=== PATIENT | female | born 1930 | race Caucasian/White ===

== ENCOUNTER 2016-04-15 17:36 | Emergency (ER) | payer BC ==
--- NOTE | 2016-04-15 17:56 | PDOC ---
[id number] 86 year old female with significant medical hx of DM, CHF, HTN, HLD, recurrent UTI, AFib, and cataracts who is presenting to the ED with palpitations since today. Today the patient saw her GI specialist complaining of constipation for the past two weeks. Upon initial assessment of the patient, she was found to be tachycardic and was referred to the ED. Patient states she's stopped taking cardizem 10 days ago because her feet were swollen. Denies fever, chills, chest pain, and shortness of breath. The patient reports shes had some constipation and incontinence the past two weeks. She has been told by GI that she needs a colonoscopy; her last colonoscopy was in 2012. Laryngologist: Cheryl Rebolledo MD <Letty Mckinley - Last Filed: 04/15/16 18:45> <Marc Tillman - Last Filed: 06/22/16 10:26> - General Chief Complaint: Irregular Heart Beat Stated Complaint: PALPITATIONS Time Seen by Provider: 04/15/16 17:55 Past History <Letty Mckinley - Last Filed: 04/15/16 18:45> - Past Medical History Anemia: No Asthma: No Cancer: Yes (LEFT BREAST) Cardiac Disorders: Yes CVA: No COPD: No CHF: No Dementia: No Diabetes: Yes GI Disorders: No Disorders: Yes (HX BLADDER INFECTIONS IN PAST) HTN: Yes Hypercholesterolemia: Yes Liver Disease: No Seizures: No Thyroid Disease: Yes - Surgical History Abdominal Surgery: No Appendectomy: No Cardiac Surgery: No Cholecystectomy: No Lung Surgery: No Neurologic Surgery: No Orthopedic Surgery: No - Immunization History Immunization Up to Date: Yes (FLU AND PNA VARICELLA) - Psycho/Social/Smoking Cessation Hx Anxiety: No Suicidal Ideation: No Smoking Status: No Smoking History: Never smoked Have you smoked in the past 12 months: No Number of Cigarettes Smoked Daily: 0 Hx Alcohol Use: No Drug/Substance Use Hx: No Substance Use Type: None Hx Substance Use Treatment: No <Marc Tillman - Last Filed: 06/22/16 10:26> - Past Medical History Allergies/Adverse Reactions: Allergies Allergy/AdvReac Type Severity Reaction Status Date / Time Sulfa (Sulfonamide Allergy Severe Swelling Verified 04/15/16 18:40 Antibiotics) lisinopril Allergy Intermediate Verified 04/15/16 18:40 Home Medications: Ambulatory Orders Amiodarone HCl [Cordarone -] 100 mg PO DAILY 07/07/14 Atorvastatin Ca [Lipitor] 10 mg PO HS 07/07/14 Docosahexanoic Acid/Epa [Fish Oil Softgel] 1,000 mg PO HS 07/07/14 Levothyroxine [Synthroid -] 50 mcg PO DAILY 07/07/14 Insulin Lispro Protamin/Lispro [Humalog Mix 75-25 Vial] 25 unit SQ BID 04/15/16 Insulin Lispro [Humalog] 15 unit SQ BID 04/15/16 Cyanocobalamin (Vitamin B-12) [B-12] 1,000 mcg PO HS 04/23/16 Lactobacillus Acidophilus [Acidophilus] 1 each PO HS 04/23/16 Apixaban [Eliquis] 2.5 mg PO BID 05/20/16 Cephalexin [Keflex] 250 mg PO AM 05/20/16 Tamoxifen Citrate 20 mg PO DAILY 05/20/16 Losartan Potassium [Cozaar -] 25 mg PO DAILY tablet 05/22/16 Review of Systems - Review of Systems Comments:: 04/15/16 18:29 GENERAL/CONSTITUTIONAL: No fever or chills. No weakness. HEAD, EYES, EARS, NOSE AND THROAT: No change in vision. No ear pain or discharge. No sore throat. CARDIOVASCULAR: Palpitations. No chest pain or shortness of breath. RESPIRATORY: No cough, wheezing, or hemoptysis. GASTROINTESTINAL: Constipation. No nausea, vomiting, or diarrhea. GENITOURINARY: Incontinence. No dysuria, frequency, or change in urination. MUSCULOSKELETAL: No joint or muscle swelling or pain. No neck or back pain. SKIN: No rash NEUROLOGIC: No headache, vertigo, loss of consciousness, or change in strength/ sensation. <Letty Mckinley - Last Filed: 04/15/16 18:45> *Physical Exam - Vital Signs Last Vital Signs Temp Pulse Resp BP Pulse Ox 98.1 F 117 H 20 175/86 97 04/15/16 17:52 04/15/16 17:52 04/15/16 17:52 04/15/16 17:52 04/15/16 17:52 - Physical Exam Comments: 04/15/16 18:30 GENERAL: Awake, alert, and fully oriented, in no acute distress HEAD: No signs of trauma EYES: PERRLA, EOMI, sclera anicteric, conjunctiva clear ENT: Auricles normal inspection, hearing grossly normal, nares patent, oropharynx clear without exudates. Moist mucosa NECK: Normal ROM, supple, no lymphadenopathy, JVD, or masses LUNGS: Breath sounds equal, clear to auscultation bilaterally. No wheezes, and no crackles HEART: Irregularly irregular. Normal S1 and S2, no murmurs, rubs or gallops ABDOMEN: Soft, nontender, normoactive bowel sounds. No guarding, no rebound. No masses EXTREMITIES: Normal range of motion, no edema. No clubbing or cyanosis. No cords, erythema, or tenderness NEUROLOGICAL: Cranial nerves II through XII grossly intact. Normal speech, normal gait SKIN: Warm, Dry, normal turgor, no rashes or lesions noted. ENDOCRINE: No increased thirst. No abnormal weight change. HEMATOLOGIC/LYMPHATIC: No anemia, easy bleeding, or history of blood clots. ALLERGIC/IMMUNOLOGIC: No hives or skin allergy. <Letty Mckinley - Last Filed: 04/15/16 18:45> - Vital Signs Last Vital Signs Temp Pulse Resp BP Pulse Ox 98.1 F 117 H 20 175/86 97 04/15/16 17:52 04/15/16 17:52 04/15/16 17:52 04/15/16 17:52 04/15/16 17:52 <Marc iTllman - Last Filed: 06/22/16 10:26> Heart Score/ECG Review #1 04/15/16 18:31 Atrial flutter with variable AV block at 108 bpm Cannot rule out inferior infarct, age undetermined Cannot rule out anterior infarct, age undetermined Prolonged QT Abnormal ECG <Letty Mckinley - Last Filed: 04/15/16 18:45> ED Treatment Course - LABORATORY CBC & Chemistry Diagram: 04/15/16 18:11 04/15/16 18:11 - RADIOLOGY Radiograph Interpretation: 04/15/16 18:45 Chest X-Ray Impression: Mild cardiomegaly and mild bilateral increased interstitial lung markings that may represent mild pulmonary venous congestion. Follow-up is needed. Reported By: Payal Rodriguez MD <Letty Mckinley - Last Filed: 04/15/16 18:45> - LABORATORY CBC & Chemistry Diagram: 04/15/16 18:11 04/15/16 18:11 <Marc Tillman - Last Filed: 06/22/16 10:26> *DC/Admit/Observation/Transfer - Attestations Scribe Attestion: 04/15/16 18:32 Documentation prepared by Letty Mckinley, acting as medical education specialist for Marc Tillman MD. <Letty Mckinley - Last Filed: 04/15/16 18:45> - Discharge Dispostion Admit: No - Attestations Physician Attestion: 04/15/16 17:55 I, Dr. Marc Tillman, attest that this document has been prepared under my direction and personally reviewed by me in its entirety. I further attest, that it accurately reflects all work, treatment, procedures and medical decision -making performed by me. <Marc Tillman - Last Filed: 06/22/16 10:26> Diagnosis at time of Disposition: Paroxysmal atrial fibrillation - Discharge Dispostion Disposition: HOME Condition at time of disposition: Improved - Referrals Referrals: Sangeetha Bettencourt MD [Primary Care Provider] - - Patient Instructions Printed Discharge Instructions: DI for Arrhythmias Additional Instructions: Please see Dr. Caceres tomorrow, as she is expecting you. Return if any problems.
[2016-04-15 18:02] VITALS: TEMP 98.1; BMI 28.1
[2016-04-15 18:40] LABS: BASOPHIL 0.5 % (0-2.0); EOSINOPHIL 1.9 % (0-4.5); MCH 29.4 pg (25.7-33.7); MCHC 33.9 g/dl (32.0-36.0); MEAN CELL VOLUME 86.7 fl (80-96); MEAN PLT VOLUME 8.3 fl (7.5-11.1); NEUTROPHILS 56.9 % (42.8-82.8); PLATELET COUNT 289 K/MM3 (134-434); RDW 14.1 % (11.6-15.6); WHITE BLOOD COUNT 10.1 K/mm3 (4.0-10.0)
[2016-04-15] MEDS ORDERED: dilTIAZem HCL 60 MG TABLET (FP) ONE (18:44)
[2016-04-15] MEDS ORDERED: dilTIAZem HCL 60 MG TABLET (FP) PO ONE (18:47)
[2016-04-15 18:52] LABS: INR 0.98 (0.82-1.09); PROTHROMBIN TIME (PATIENT) 10.8 SEC (9.98-11.88)
[2016-04-15 19:01] LABS: ALBUMIN 3.8 g/dl (3.4-5.0); ANION GAP 10 (8-16); BILIRUBIN,TOTAL 0.4 mg/dL (0.2-1.0); CALCIUM 8.7 mg/dL (8.5-10.1); CO2 26 mmol/L (21-32); CREATININE 1.1 mg/dL (0.55-1.02); GLUCOSE,RANDOM 173 mg/dL (74-106); MAGNESIUM 2.3 mg/dL (1.8-2.4); SGOT/AST 15 U/L (15-37); SGPT/ALT 23 U/L (12-78); TOT PROT 7.1 g/dl (6.4-8.2)
[2016-04-15 19:04] LABS: ALK PHOS 34 U/L (45-117); TROPONIN I < 0.02 ng/ml (0.00-0.05)
[2016-04-15 20:07] VITALS: BP 124/69; PULSE 91
--- NOTE | 2016-04-15 20:10 | PDOC ---
*Physical Exam - Vital Signs Last Vital Signs Temp Pulse Resp BP Pulse Ox 98.1 F 117 H 20 175/86 97 04/15/16 17:52 04/15/16 17:52 04/15/16 17:52 04/15/16 17:52 04/15/16 17:52 ED Treatment Course - LABORATORY CBC & Chemistry Diagram: 04/15/16 18:11 04/15/16 18:11 - ADDITIONAL ORDERS Additional order review: Laboratory Results 04/15/16 04/15/16 18:11 18:11 INR 0.98 Sodium 140 Potassium 4.0 Chloride 104 Carbon Dioxide 26 Anion Gap 10 BUN 28 H D Creatinine 1.1 H Creat Clearance w eGFR 47.32 Random Glucose 173 H D Calcium 8.7 Magnesium 2.3 D Total Bilirubin 0.4 D AST 15 D ALT 23 D Alkaline Phosphatase 34 L Creatine Kinase 66 Troponin I < 0.02 Total Protein 7.1 D Albumin 3.8 D 04/15/16 18:11 RBC 4.22 D MCV 86.7 MCHC 33.9 RDW 14.1 MPV 8.3 Neutrophils % 56.9 D Lymphocytes % 30.8 D Monocytes % 9.9 Eosinophils % 1.9 D Basophils % 0.5 - Medications Given in the ED: ED Medications Discontinued Medications Generic Name Dose Route Start Last Admin Trade Name Freq PRN Reason Stop Dose Admin Diltiazem HCl 60 mg 04/15/16 18:47 04/15/16 18:49 Cardizem - PO 04/15/16 18:48 60 mg ONCE ONE Administration Medical Decision Making - Medical Decision Making 04/15/16 20:08 Pt given Cardizem 60mg PO. HR now is 90's to 101. Spoke to pcp. Pt can go home. 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 Quiroga. *DC/Admit/Observation/Transfer Diagnosis at time of Disposition: Paroxysmal atrial fibrillation - Discharge Dispostion Disposition: HOME Condition at time of disposition: Improved Admit: No - Referrals Referrals: Sangeetha Bettencourt MD [Primary Care Provider] - - Patient Instructions Printed Discharge Instructions: DI for Arrhythmias Additional Instructions: Please see Dr. Caceres tomorrow, as she is expecting you. Return if any problems. - Post Discharge Activity
--- NOTE | 2016-04-16 16:39 | EKG ---
Test Reason : Blood Pressure : / mmHG Vent. Rate : 108 BPM Atrial Rate : 264 BPM P-R Int : 000 ms QRS Dur : 098 ms QT Int : 390 ms P-R-T Axes : 000 020 145 degrees QTc Int : 522 ms ATRIAL FIBRILLATION WITH RAPID VENTRICULAR RESPONSE CANNOT RULE OUT INFERIOR INFARCT , AGE UNDETERMINED CANNOT RULE OUT ANTERIOR INFARCT (CITED ON OR BEFORE 07-JUL-2014) PROLONGED QT ABNORMAL ECG Confirmed by MD VERN, RANDY ([id number]) on 04/16/2016 4:39:15 PM Referred By: Confirmed By:RANDY PORRAS MD
== END 2016-04-15 20:39 | disposition home or self-care (01) ==
LOC: JER 17:36
DX: I48.0 Paroxysmal atrial fibrillation (principal); I10 Essential (primary) hypertension; E11.9 Type 2 diabetes mellitus without complications; Z79.4 Long term (current) use of insulin; E78.00 Pure hypercholesterolemia, unspecified; I50.9 Heart failure, unspecified; Z85.3 Personal history of malignant neoplasm of breast
CPT/HCPCS: 36415; 71010-TC; 80053; 82550; 83735; 84484; 85025; 85610; 93005; 93010; 99285-25

== ENCOUNTER 2016-04-23 17:22 | Observation (INO) | payer BC ==
--- NOTE | 2016-04-23 17:28 | PDOC ---
Rapid Medical Evaluation Time Seen by Provider: 04/23/16 17:25 Medical Evaluation: Allergies Allergy/AdvReac Type Severity Reaction Status Date / Time Sulfa (Sulfonamide Allergy Severe Swelling Verified 04/23/16 17:25 Antibiotics) lisinopril Allergy Intermediate Verified 04/23/16 17:25 04/23/16 17:25 I have performed a brief in-person evaluation of this patient. The patient presents with a chief complaint of: confused since last night, + cough. recently discharged from here secondary to irreg beat and tachycardia. Pertinent physical exam findings: aox3. 188/76, 122 heart rate I have ordered the following: ekg. Send to main ED room 9b The patient will proceed to the ED for further evaluation.
[2016-04-23 17:33] VITALS: BMI 26.5
[2016-04-23 18:52] LABS: BASOPHIL 1.1 % (0-2.0); EOSINOPHIL 1.6 % (0-4.5); MCHC 34.4 g/dl (32.0-36.0); MEAN CELL VOLUME 87.2 fl (80-96); MEAN PLT VOLUME 9.2 fl (7.5-11.1); NEUTROPHILS 58.9 % (42.8-82.8); PLATELET COUNT 295 K/MM3 (134-434); RDW 14.5 % (11.6-15.6); WHITE BLOOD COUNT 9.8 K/mm3 (4.0-10.0)
--- NOTE | 2016-04-23 19:14 | PDOC ---
History of Present Illness - General History Source: Family Exam Limitations: No Limitations - History of Present Illness Initial Comments: 04/23/16 19:30 Patient is an 86 year old female with significant medical hx of DM, CHF, HTN, HLD, recurrent UTI, AFib, and cataracts who is presenting to the ED with AMS today. As per son, the pt seems more confused and slow in response as of yesterday evening. He called the pts PCP (Dr. Bettencourt) who advised that they report to the ED for further evaluation. Patient was seen in the ED on with the complaint of constipation. Pt reports experiencing a chest cold for the past 3 weeks. Denies fever, chills, nausea, vomiting, diarrhea, or abdominal pain. Denies any shortness of breath or chest pain. <Lauren Chand - Last Filed: 04/23/16 22:12> - General History Source: Patient Exam Limitations: No Limitations <Anant Saeed - Last Filed: 04/23/16 22:18> - General Chief Complaint: Altered Mental Status Stated Complaint: CONFUSED/AMS Time Seen by Provider: 04/23/16 17:25 Past History <Lauren Chand - Last Filed: 04/23/16 22:12> - Past Medical History Anemia: No Asthma: No Cancer: Yes (LEFT BREAST) Cardiac Disorders: Yes (a fib) CVA: No COPD: No CHF: No Dementia: No Diabetes: Yes GI Disorders: No Disorders: Yes (HX BLADDER INFECTIONS IN PAST) HTN: Yes Hypercholesterolemia: Yes Liver Disease: No Seizures: No Thyroid Disease: Yes - Surgical History Abdominal Surgery: No Appendectomy: No Cardiac Surgery: No Cholecystectomy: No Lung Surgery: No Neurologic Surgery: No Orthopedic Surgery: No - Immunization History Immunization Up to Date: Yes (FLU AND PNA VARICELLA) - Psycho/Social/Smoking Cessation Hx Anxiety: No Suicidal Ideation: No Smoking Status: No Smoking History: Never smoked Have you smoked in the past 12 months: No Number of Cigarettes Smoked Daily: 0 Information on smoking cessation initiated: No Hx Alcohol Use: No Drug/Substance Use Hx: No Substance Use Type: None Hx Substance Use Treatment: No <Anant Saeed - Last Filed: 04/23/16 22:18> - Past Medical History Allergies/Adverse Reactions: Allergies Allergy/AdvReac Type Severity Reaction Status Date / Time Sulfa (Sulfonamide Allergy Severe Swelling Verified 04/23/16 17:25 Antibiotics) lisinopril Allergy Intermediate Verified 04/23/16 17:25 Home Medications: Ambulatory Orders Amiodarone HCl [Cordarone -] 200 mg PO DAILY 07/07/14 Atorvastatin Ca [Lipitor] 10 mg PO HS 07/07/14 Biotin [George Biotin] 5,000 mcg PO DAILY 07/07/14 Docosahexanoic Acid/Epa [Fish Oil Softgel] 1,000 mg PO DAILY 07/07/14 Furosemide [Lasix -] 40 mg PO DAILY 07/07/14 Levothyroxine [Synthroid -] 50 mcg PO DAILY 07/07/14 Metoprolol Succinate [Toprol XL -] 25 mg PO DAILY 07/07/14 Tamoxifen Citrate 20 mg PO DAILY 07/07/14 Vitamin E 400 unit PO DAILY 07/07/14 Hydrochlorothiazide [Hctz -] 12.5 mg PO DAILY 04/15/16 Insulin Lispro Protamin/Lispro [Humalog Mix 75-25 Vial] 25 unit SQ BID 04/15/16 Insulin Lispro [Humalog] 15 unit SQ BID 04/15/16 Losartan Potassium 25 mg PO DAILY 04/15/16 Cranberry Fruit Extract [Cranberry] 4,200 mg PO DAILY 04/23/16 Cyanocobalamin (Vitamin B-12) [B-12] 1,000 mcg PO DAILY 04/23/16 Diltiazem Cd [Cardizem Cd -] 180 mg PO DAILY 04/23/16 Lactobacillus Acidophilus [Acidophilus] 1 each PO DAILY 04/23/16 Vitamin E - 0 unit PO DAILY 04/23/16 Review of Systems - Review of Systems Able to Perform ROS?: Yes Comments:: 04/23/16 19:30 GENERAL/CONSTITUTIONAL: No fever or chills. No weakness. HEAD, EYES, EARS, NOSE AND THROAT: No change in vision. No ear pain or discharge. No sore throat. CARDIOVASCULAR: No chest pain or shortness of breath. RESPIRATORY: No cough, wheezing, or hemoptysis. GASTROINTESTINAL: No nausea, vomiting, diarrhea or constipation. GENITOURINARY: No dysuria, frequency, or change in urination. MUSCULOSKELETAL: No joint or muscle swelling or pain. No neck or back pain. SKIN: No rash NEUROLOGIC: No headache, vertigo, loss of consciousness, or change in strength/ sensation. ENDOCRINE: No increased thirst. No abnormal weight change. HEMATOLOGIC/LYMPHATIC: No anemia, easy bleeding, or history of blood clots. ALLERGIC/IMMUNOLOGIC: No hives or skin allergy. <Lauren Chand - Last Filed: 04/23/16 22:12> *Physical Exam - Vital Signs Last Vital Signs Temp Pulse Resp BP Pulse Ox 97.8 F 125 H 18 188/76 100 04/23/16 17:27 04/23/16 17:27 04/23/16 17:27 04/23/16 17:27 04/23/16 17:27 - Physical Exam Comments: 04/23/16 19:31 GENERAL: Awake, alert, and fully oriented, in no acute distress HEAD: No signs of trauma EYES: PERRLA, EOMI, sclera anicteric, conjunctiva clear ENT: Auricles normal inspection, hearing grossly normal, nares patent, oropharynx clear without exudates. Moist mucosa NECK: Normal ROM, supple, no lymphadenopathy, JVD, or masses LUNGS: Breath sounds equal, clear to auscultation bilaterally. No wheezes, and no crackles HEART: Normal S1 and S2, no murmurs, rubs or gallops. (+)Heart is irregularly irregular ABDOMEN: Soft, nontender, normoactive bowel sounds. No guarding, no rebound. No masses EXTREMITIES: Normal range of motion, no edema. No clubbing or cyanosis. No cords, erythema, or tenderness NEUROLOGICAL: Cranial nerves II through XII intact. Normal speech. 5 out of 5 motor strength x4 extremities. No gross sensory deficits. No dysmetria, No dysarthria.(+)ANO x3 with moments of intermittent confusion SKIN: Warm, Dry, normal turgor, no rashes or lesions noted <Lauren Chand - Last Filed: 04/23/16 22:12> - Vital Signs Last Vital Signs Temp Pulse Resp BP Pulse Ox 97.8 F 125 H 18 188/76 100 04/23/16 17:27 04/23/16 17:27 04/23/16 17:27 04/23/16 17:27 04/23/16 17:27 <Anant Saeed - Last Filed: 04/23/16 22:18> Heart Score/ECG Review #1 ECG reviewed & interpreted by me at: 18:15 04/23/16 19:17 atrial fibrillation with RVR 108, QTC 533 msec, no std/ace, nonspecific ST and T wave abnormality <Anant Saeed - Last Filed: 04/23/16 22:18> ED Treatment Course - LABORATORY CBC & Chemistry Diagram: 04/23/16 18:13 04/23/16 19:46 - ADDITIONAL ORDERS Additional order review: Laboratory Results 04/23/16 04/23/16 18:13 18:13 Sodium Cancelled Potassium Cancelled Chloride Cancelled Carbon Dioxide Cancelled Anion Gap Cancelled BUN Cancelled Creatinine Cancelled Creat Clearance w eGFR Cancelled Random Glucose Cancelled Calcium Cancelled Total Bilirubin Cancelled AST Cancelled ALT Cancelled Alkaline Phosphatase Cancelled Creatine Kinase Cancelled Troponin I Cancelled Total Protein Cancelled Albumin Cancelled 04/23/16 18:13 RBC 4.44 MCV 87.2 MCHC 34.4 RDW 14.5 MPV 9.2 D Neutrophils % 58.9 Lymphocytes % 28.5 Monocytes % 9.9 Eosinophils % 1.6 Basophils % 1.1 <Lauren Chand - Last Filed: 04/23/16 22:12> - LABORATORY CBC & Chemistry Diagram: 04/23/16 18:13 04/23/16 19:46 - ADDITIONAL ORDERS Additional order review: 04/23/16 18:13 RBC 4.44 MCV 87.2 MCHC 34.4 RDW 14.5 MPV 9.2 D Neutrophils % 58.9 Lymphocytes % 28.5 Monocytes % 9.9 Eosinophils % 1.6 Basophils % 1.1 - RADIOLOGY Radiology Studies Ordered: Category Date Time Status HEAD CT WITHOUT CONTRAST [CT] Stat CT Scan 04/23/16 17:44 Ordered CHEST X-RAY PORTABLE* [RAD] Stat Radiology 04/23/16 17:35 Taken <Anant Saeed - Last Filed: 04/23/16 22:18> Medical Decision Making - Medical Decision Making 04/23/16 21:53 Dr. Bettencourt was paged and notified via phone service. Second page was placed at 22:12 <Lauren Chand - Last Filed: 04/23/16 22:12> - Medical Decision Making 04/23/16 19:13 A portion of this note was documented by scribe services under my direction. I have reviewed the details of the note, within reason, and agree with the documentation with the following case summary and management plan written by me. Patient treated in the ED. Nursing notes are reviewed and incorporated into the medical decision-making. Vital signs reviewed. Peripheral IV access obtained by the nurse, laboratory studies are drawn and sent, reviewed and interpreted by myself. With past medical history of diabetes, hypertension, congestive heart failure, hyperlipidemia, recurrent urinary tract infections, atrial fibrillation, cataracts presents to the emergency department for confusion. Son is at the bedside providing most the history. This patient has no history of dementia is typically sharp. Yesterday, son noted that the patient has become increasingly more confused. Today more forgetful than usual. However, patient denies any pain , fevers, chills, cough, vomiting. Patient's son reports that when he called the primary care physician, she advised that the patient come the ER for further evaluation. Patient's son reports that when the patient had confusion prior, she had a urinary tract infection. We'll need to investigate with urine analysis, labs, chest x-ray, EKG and head CT. Currently, the patient has no neurological deficits at this time. We'll need to touch base with the patient's primary care physician once results return. 04/23/16 22:16 CBC, BMP 04/23/16 18:13 04/23/16 19:46 CMP Sodium 142 mmol/L (136-145) 04/23/16 19:46 Potassium 3.7 mmol/L (3.5-5.1) 04/23/16 19:46 Chloride 104 mmol/L (98-107) 04/23/16 19:46 Carbon Dioxide 30 mmol/L (21-32) 04/23/16 19:46 Anion Gap 8 (8-16) 04/23/16 19:46 BUN 21 mg/dL (7-18) H D 04/23/16 19:46 Creatinine 0.9 mg/dL (0.55-1.02) 04/23/16 19:46 Creat Clearance w eGFR 59.65 (>60) 04/23/16 19:46 Random Glucose 85 mg/dL (74-106) D 04/23/16 19:46 Calcium 8.7 mg/dL (8.5-10.1) 04/23/16 19:46 Magnesium 2.4 mg/dL (1.8-2.4) 04/23/16 19:46 Total Bilirubin 0.6 mg/dL (0.2-1.0) D 04/23/16 19:46 AST 12 U/L (15-37) L 04/23/16 19:46 ALT 19 U/L (12-78) 04/23/16 19:46 Alkaline Phosphatase 39 U/L (45-117) L 04/23/16 19:46 Creatine Kinase 80 IU/L (26-192) 04/23/16 19:46 Troponin I < 0.02 ng/ml (0.00-0.05) 04/23/16 19:46 Total Protein 7.5 g/dl (6.4-8.2) 04/23/16 19:46 Albumin 3.8 g/dl (3.4-5.0) 04/23/16 19:46 Urine Test Results Urine Color Colorless 04/23/16 20:15 Urine Appearance Clear 04/23/16 20:15 Urine pH 7.0 (5.0-8.0) D 04/23/16 20:15 Ur Specific [place] 1.004 (1.001-1.035) 04/23/16 20:15 Urine Protein Negative (NEGATIVE) 04/23/16 20:15 Urine Glucose (UA) Negative (NEGATIVE) 04/23/16 20:15 Urine Ketones Negative (NEGATIVE) 04/23/16 20:15 Urine Blood Negative (NEGATIVE) 04/23/16 20:15 Urine Nitrite Negative (NEGATIVE) 04/23/16 20:15 Urine Bilirubin Negative (NEGATIVE) 04/23/16 20:15 Ur Leukocyte Esterase Negative (NEGATIVE) 04/23/16 20:15 CT head reviewed. At this time, the patient continues to appear confused, but not toxic or ill. Case discussed with Dr. Xie. He accepts the patient under Dr. Soriano med/ surg observation for further workup. Case discussed in detail with admitting physician including history, physical exam and ancillary studies. Admitting physician has assumed care for the patient, will follow all pending diagnostics and will complete the evaluation and treatment. <Anant Saeed - Last Filed: 04/23/16 22:18> *DC/Admit/Observation/Transfer - Attestations Scribe Attestion: 04/23/16 19:39 Documentation prepared by Lauren Chand, acting as phlebotomist medical lab assistant for Anant Saeed MD. <Lauren Chand - Last Filed: 04/23/16 22:12> - Discharge Dispostion Admit: Yes <Anant Saeed - Last Filed: 04/23/16 22:18> Diagnosis at time of Disposition: Altered mental status Qualifiers: Altered mental status type: unspecified Qualified Code(s): R41.82 - Altered mental status, unspecified - Discharge Dispostion Condition at time of disposition: Stable
[2016-04-23 21:01] LABS: ALBUMIN 3.8 g/dl (3.4-5.0); ANION GAP 8 (8-16); BILIRUBIN,TOTAL 0.6 mg/dL (0.2-1.0); CALCIUM 8.7 mg/dL (8.5-10.1); CO2 30 mmol/L (21-32); CREATININE 0.9 mg/dL (0.55-1.02); GLUCOSE,RANDOM 85 mg/dL (74-106); MAGNESIUM 2.4 mg/dL (1.8-2.4); SGOT/AST 12 U/L (15-37); SGPT/ALT 19 U/L (12-78); TOT PROT 7.5 g/dl (6.4-8.2)
[2016-04-23 21:03] LABS: ALK PHOS 39 U/L (45-117); TROPONIN I < 0.02 ng/ml (0.00-0.05)
[2016-04-23 21:13] LABS: URINE APPEARANCE CLEAR; URINE BILIRUBIN NEGATIVE (NEGATIVE); URINE BLOOD NEGATIVE (NEGATIVE); URINE COLOR COLORLESS; URINE GLUCOSE (UA) NEGATIVE (NEGATIVE); URINE KETONE NEGATIVE (NEGATIVE); URINE LEUK ESTERASE NEGATIVE (NEGATIVE); URINE NITRITE NEGATIVE (NEGATIVE); URINE PROTEIN NEGATIVE (NEGATIVE); URINE UROBILINOGEN NEGATIVE E.U./dl (0.2-1.0)
[2016-04-24] MEDS: LEVOTHYROXINE NA 50 MCG TABLET (FP) PO SCH (06:50)
[2016-04-24] MEDS ORDERED: INSULIN (NOVOLOG) ASPART 100 UNITS/ML 10ML VIAL SQ SCH (07:00)
[2016-04-24] MEDS: ENOXAPARIN NA (PORCINE) 40 MG/0.4 ML DISP.SYRIN SQ SCH (09:11)
[2016-04-24] MEDS ORDERED: LOSARTAN POTASSIUM 25 MG TABLET PO SCH (10:00)
[2016-04-24] MEDS ORDERED: FUROSEMIDE 40 MG TABLET (FP) PO SCH (10:00)
[2016-04-24] MEDS: AMIODARONE HCL 200 MG TABLET (FP) PO SCH (11:29)
[2016-04-24] MEDS: HYDROCHLOROTHIAZIDE 12.5 MG CAPSULE (FP) PO SCH (11:30)
[2016-04-24] MEDS: METOPROLOL SUCCINATE 50 MG TAB.SR.24H (FP) PO SCH (11:31)
[2016-04-24] MEDS ORDERED: INSULIN (NOVOLOG MIX 70/30) 100 UNITS/ML MDV SQ ONE (11:37)
[2016-04-24] MEDS: INSULIN (NOVOLOG MIX 70/30) 100 UNITS/ML MDV SQ SCH ×2 (11:45→17:24)
[2016-04-24] MEDS: INSULIN SLIDING SCALE (NOVOLOG) 1 VIAL SQ SCH ×3 (11:46→22:15)
[2016-04-24] MEDS: ASPIRIN 325 MG ENTERIC COATED TABLET (FP) PO SCH (12:32)
[2016-04-24] MEDS: TAMOXIFEN CITRATE 10 MG TABLET PO SCH (12:32)
[2016-04-24] MEDS ORDERED: MAGNESIUM HYDROX 2400MG/30ML ORAL SUSPENSION 30 ML CUP PO ONE (12:45)
[2016-04-24] MEDS: NYSTATIN POWDER 100,000 UNITS/GM - 15 GM TOPICAL POWDER TP SCH (13:33)
--- NOTE | 2016-04-24 13:46 | CON.NEURO ---
Consult Consult Specialty:: NEUROLOGY - History of Present Illness History of Present Illness: 86 year old female with significant medical hx of DM, CHF, HTN, HLD, recurrent UTI, AFib, and cataracts presented to the ED with AMS . As per son, the pt seems more confused and slow in the last two days. He called the pts PCP (Dr. Bettencourt) who advised that they report to the ED for further evaluation. Patient was seen in the ED on 04/15 with the complaint of constipation. Pt reports experiencing a chest cold for the past 3 weeks. - Past Medical History Cardio/Vascular: Yes: AFIB (paroxysmal), HTN, Hyperlipdemia Renal/: Yes: UTI, Other (urinary frequency and urgency ) Infectious Disease: Yes: Other (recurrent UTI, similar admission in January, since then has been treated for UTI x2 as outpatient too.) Endocrine: Yes: Diabetes Mellitus (insulin dependent), Hypothyroidism - Alcohol/Substance Use Hx Alcohol Use: No - Smoking History Smoking history: Never smoked Have you smoked in the past 12 months: No Aproximately how many cigarettes per day: 0 - Social History ADL: Independent (uses cane and walker has had h/o frequent falls.) History of Recent Travel: No Home Medications - Allergies Allergies/Adverse Reactions: Allergies Allergy/AdvReac Type Severity Reaction Status Date / Time Sulfa (Sulfonamide Allergy Severe Swelling Verified 04/23/16 17:25 Antibiotics) lisinopril Allergy Intermediate Verified 04/23/16 17:25 - Home Medications Home Medications: Ambulatory Orders Amiodarone HCl [Cordarone -] 200 mg PO DAILY 07/07/14 Atorvastatin Ca [Lipitor] 10 mg PO HS 07/07/14 Biotin [George Biotin] 5,000 mcg PO DAILY 07/07/14 Docosahexanoic Acid/Epa [Fish Oil Softgel] 1,000 mg PO DAILY 07/07/14 Furosemide [Lasix -] 40 mg PO DAILY 07/07/14 Levothyroxine [Synthroid -] 50 mcg PO DAILY 07/07/14 Metoprolol Succinate [Toprol XL -] 25 mg PO DAILY 07/07/14 Tamoxifen Citrate 20 mg PO DAILY 07/07/14 Vitamin E 400 unit PO DAILY 07/07/14 Hydrochlorothiazide [Hctz -] 12.5 mg PO DAILY 04/15/16 Insulin Lispro Protamin/Lispro [Humalog Mix 75-25 Vial] 25 unit SQ BID 04/15/16 Insulin Lispro [Humalog] 15 unit SQ BID 04/15/16 Losartan Potassium 25 mg PO DAILY 04/15/16 Cranberry Fruit Extract [Cranberry] 4,200 mg PO DAILY 04/23/16 Cyanocobalamin (Vitamin B-12) [B-12] 1,000 mcg PO DAILY 04/23/16 Diltiazem Cd [Cardizem Cd -] 180 mg PO DAILY 04/23/16 Lactobacillus Acidophilus [Acidophilus] 1 each PO DAILY 04/23/16 Vitamin E - 0 unit PO DAILY 04/23/16 Review of Systems - Review of Systems Constitutional: reports: Chills, Lethargy, Malaise Eyes: reports: Blurred Vision Neck: reports: No Symptoms Cardiovascular: reports: No Symptoms Respiratory: reports: No Symptoms Gastrointestinal: reports: No Symptoms Physical Exam-Neuro Vital Signs: Vital Signs Temperature 98.1 F 04/24/16 09:30 Pulse Rate 104 H 04/24/16 10:06 Respiratory Rate 18 04/24/16 10:06 Blood Pressure 102/59 04/24/16 10:06 O2 Sat by Pulse Oximetry (%) 96 04/24/16 09:00 Imaging - Results Cat Scan: Report Reviewed, Image Reviewed Problem List - Problems (1) Altered mental status Code(s): R41.82 - ALTERED MENTAL STATUS, UNSPECIFIED Qualifiers: Qualified Code(s): R41.82 - Altered mental status, unspecified (2) Metabolic encephalopathy Code(s): G93.41 - METABOLIC ENCEPHALOPATHY Assessment/Plan 86 year old female with significant medical hx of DM, CHF, HTN, HLD, recurrent UTI, AFib, and cataracts presented to the ED with AMS . As per son, the pt seems more confused and slow in the last two days. He called the pts PCP (Dr. Bettencourt) who advised that they report to the ED for further evaluation. Patient was seen in the ED on 04/15 with the complaint of constipation. Pt reports experiencing a chest cold for the past 3 weeks. Impression: metabolic encephalopathy, altered mental status. Plan: - nonfocal deficit. - check for UTI, infection, pneumonia - DVT prophylaxis. - continues asa, statin, blood pressure control. - iv. fluids, consider banana bag. iv. - thank you for this kind referral.
--- NOTE | 2016-04-24 15:21 | CON.CARD ---
Cardiology Consult (text) - Consultation Consultation Note: CC: confusion 86 with h/o afib, HTN, HLD, dCHF, DM and recurrent UTI presents with confusion. Per report the son thought pt seemed more confused and slow to respond. Patient states that she believes she has been confused for the past two weeks. Denies infectious sx's or other triggers. no f/c/s, n/v/d, headache, transient neurologic symptoms, dysuria, hematuria. Denies orthopnea, pnd, le edema, palps, dizziness, cp sob, claudication. States she is feeling slightly more oriented but not back to baseline. Ambulatory Orders Amiodarone HCl [Cordarone -] 200 mg PO DAILY 07/07/14 Atorvastatin Ca [Lipitor] 10 mg PO HS 07/07/14 Biotin [George Biotin] 5,000 mcg PO DAILY 07/07/14 Docosahexanoic Acid/Epa [Fish Oil Softgel] 1,000 mg PO DAILY 07/07/14 Furosemide [Lasix -] 40 mg PO DAILY 07/07/14 Levothyroxine [Synthroid -] 50 mcg PO DAILY 07/07/14 Metoprolol Succinate [Toprol XL -] 25 mg PO DAILY 07/07/14 Tamoxifen Citrate 20 mg PO DAILY 07/07/14 Vitamin E 400 unit PO DAILY 07/07/14 Hydrochlorothiazide [Hctz -] 12.5 mg PO DAILY 04/15/16 Insulin Lispro Protamin/Lispro [Humalog Mix 75-25 Vial] 25 unit SQ BID 04/15/16 Insulin Lispro [Humalog] 15 unit SQ BID 04/15/16 Losartan Potassium 25 mg PO DAILY 04/15/16 Cranberry Fruit Extract [Cranberry] 4,200 mg PO DAILY 04/23/16 Cyanocobalamin (Vitamin B-12) [B-12] 1,000 mcg PO DAILY 04/23/16 Diltiazem Cd [Cardizem Cd -] 180 mg PO DAILY 04/23/16 Lactobacillus Acidophilus [Acidophilus] 1 each PO DAILY 04/23/16 Vitamin E - 0 unit PO DAILY 04/23/16 Current Medications Amiodarone HCl (Cordarone -) 100 mg PO DAILY [facility] Last Admin: 04/24/16 11:29 Dose: 100 mg Aspirin (Ecotrin -) 325 mg PO DAILY [facility] Last Admin: 04/24/16 12:32 Dose: 325 mg Atorvastatin Calcium (Lipitor -) 10 mg PO HS [facility] Enoxaparin Sodium (Lovenox -) 40 mg SQ DAILY [facility] Last Admin: 04/24/16 09:11 Dose: 40 mg Furosemide (Lasix -) 40 mg PO DAILY [facility] Last Admin: 04/24/16 11:30 Dose: 40 mg Hydrochlorothiazide (Hctz -) 12.5 mg PO DAILY [facility] Last Admin: 04/24/16 11:30 Dose: 12.5 mg Insulin Aspart (Novolog Mix 70/30 Vial) 25 units SQ BIDAC [facility] Last Admin: 04/24/16 11:45 Dose: 25 units Insulin Aspart (Novolog Vial Sliding Scale -) 1 vial SQ ACHS [facility] PRN Reason: Protocol Last Admin: 04/24/16 11:46 Dose: 8 units Levothyroxine Sodium (Synthroid -) 50 mcg PO DAILY@0700 [facility] Last Admin: 04/24/16 06:50 Dose: 50 mcg Metoprolol Succinate (Toprol Xl -) 50 mg PO DAILY [facility] Last Admin: 04/24/16 11:31 Dose: 50 mg Nystatin (Nystop Powder -) 1 applic TP DAILY [facility] Last Admin: 04/24/16 13:33 Dose: 1 applic Tamoxifen Citrate (Tamoxifen Citrate) 20 mg PO DAILY [facility] Last Admin: 04/24/16 12:32 Dose: 20 mg Vital Signs - 24 hr 04/23/16 04/23/16 04/24/16 17:27 22:13 02:00 Temperature 97.8 F 98.2 F 98 F Pulse Rate 125 H 96 H Pulse Rate [ 92 H Apical] Respiratory 18 18 18 Rate Blood Pressure 188/76 110/64 Blood Pressure 117/67 [Right Arm] O2 Sat by Pulse 100 99 99 Oximetry (%) 04/24/16 04/24/16 04/24/16 06:00 09:00 09:30 Temperature 98.0 F 98.1 F Pulse Rate 98 H 95 H Pulse Rate [ Apical] Respiratory 18 18 18 Rate Blood Pressure 113/41 102/62 Blood Pressure [Right Arm] O2 Sat by Pulse 96 Oximetry (%) 04/24/16 04/24/16 10:06 14:10 Temperature 98.3 F Pulse Rate 104 H 100 H Pulse Rate [ Apical] Respiratory 18 20 Rate Blood Pressure 102/59 105/56 Blood Pressure [Right Arm] O2 Sat by Pulse Oximetry (%) Intake & Output 04/22/16 04/23/16 04/24/16 04/25/16 07:59 07:59 07:59 07:59 Intake Total 0 335 Balance 0 335 Weight 145 lb NAD, calm JVD flat, neck supple CTAB, nl effort Irregular, nl s1, s2. no mrg + bs soft nt nd ext without e/c/c + dp/pt aaox2 no jaundice, diaphoresis no carotid bruit CBC, BMP 04/23/16 18:13 04/23/16 19:46 Laboratory Tests 04/23/16 19:46 Magnesium 2.4 Total Bilirubin 0.6 D AST 12 L ALT 19 Alkaline Phosphatase 39 L Troponin I < 0.02 Albumin 3.8 EKG: afib. qt read as prolonged, but difficult to interpret in setting of afib. poor r wave progression, possible inferior q waves. Non-specific t wave abnormalities. CXR: increased lung markings, weak inspiration Head ct: no acute pathology 86 with h/o afib, HTN, HLD, dCHF, DM and recurrent UTI presents with confusion. Afib - previously off AC for afib due to falls (will review Dr. Quiroga's office notes ). Con't asa. - Maintained on amio, metoprolol for rate control. Rates slightly elevated in the 90's-100's, but bp low. Will con't to monitor for now. - Tsh - repeat bmp and assess electrolytes HTN - bp running low. On both hctz and lasix, would stop lasix. Con't metoprolol for now. cad s/p remote NSTEMI - Per records s/p NSTEMI 2003 and cath then showed stenosis of distal D2--? intervened on or not - MIBI no ischemia 2012 ([facility]isc[facility]) - CE's neg x 1, EKG without acute ischemic changes. Would repeat cardiac enzymes in am. - continue asa, statin , bb hld: - con't statin. dCHF? - will review Dr. Quiroag's notes
[2016-04-24] MEDS ORDERED: FOLIC ACID INJECTION - 1 MG, THIAMINE HCL 100 MG, MULTIVIT INJECTION ADULT 10 ML in SOD... IVPB ONE (16:34)
--- NOTE | 2016-04-24 21:32 | HP ---
DATE OF ADMISSION: DATE OF DICTATION: 04/24/2016 CHIEF COMPLAINT: Altered mental status. HISTORY OF PRESENT ILLNESS: She is an 86-year-old female with past medical history of hypertension, diabetes, coronary artery disease, hypothyroidism, and breast cancer, came to the ER with the complaint of altered mental status, slightly confused as noted by her son and she had a little low temperature. She was brought in the ER and in the ER she had worked up for sepsis and stroke and all the workup was negative. She had no pneumonia, no urinary tract infection, and her CAT scan is normal, so she is being admitted to the hospital for altered mental status, possible rule out TIA. Patient denies any other symptom. REVIEW OF SYSTEMS: Head: Positive for dizziness. Ears, Nose, Throat: Negative. Cardiac: No chest pain. Respiratory: No shortness of breath. Gastrointestinal: No nausea, vomiting. Genitourinary: No urinary incontinence. Neurologic: She is slightly confused but alert, awake, oriented. Endocrine: She has a history of diabetes and hypothyroidism. PHYSICAL EXAMINATION: General: Elderly woman lying in bed, comfortable. Vital Signs: Blood pressure is 102/62, and 2nd time 102/59 and the pulse is 75, respiration 18. HEENT: NAD. No bleeding. Neck: Supple. Negative JVD. Lungs: Bilaterally clear. Heart: S1, S2 positive. Abdomen: Soft, nontender. No organomegaly. Neurologic: She is alert, awake, oriented at this time. She did not have any focal weakness. LABORATORIES: In the hospital, her white count is normal. Her BUN and creatinine are okay. Urine is completely clear. Chest x-ray is clear. CAT scan shows no acute stroke. ASSESSMENT: 1. Altered mental status, possible transient ischemic attack, rule out. She is only on medication aspirin. Neurologic consult has been called and we will follow. 2. Diabetes. It is lower side, but we will continue her insulin along with coverage. 3. Hypothyroidism. Continue Synthroid. 4. Blood pressure, hypertension. At this time, she has low blood pressure. Will stop her Cozaar for the blood pressure. 5. Also, on the skin she had a rash under her breasts and on the skin fold. Will give Nystatin powder. SRIKANTH ASKEW M.D. [id number]
[2016-04-24] MEDS ORDERED: ATORVASTATIN CA 10 MG TABLET (FP) PO SCH (22:00)
[2016-04-25] MEDS: INSULIN SLIDING SCALE (NOVOLOG) 1 VIAL SQ SCH ×2 (06:14→11:49)
[2016-04-25] MEDS: LEVOTHYROXINE NA 50 MCG TABLET (FP) PO SCH (06:51)
[2016-04-25] MEDS: INSULIN (NOVOLOG MIX 70/30) 100 UNITS/ML MDV SQ SCH (06:51)
[2016-04-25 08:36] LABS: BASOPHIL 0.6 % (0-2.0); EOSINOPHIL 2.6 % (0-4.5); MCH 30.1 pg (25.7-33.7); MCHC 34.2 g/dl (32.0-36.0); MEAN PLT VOLUME 8.3 fl (7.5-11.1); NEUTROPHILS 60.9 % (42.8-82.8); PLATELET COUNT 241 K/MM3 (134-434); RDW 14.1 % (11.6-15.6); WHITE BLOOD COUNT 8.3 K/mm3 (4.0-10.0)
[2016-04-25 09:16] LABS: ANION GAP 5 (8-16); CALCIUM 8.2 mg/dL (8.5-10.1); CO2 32 mmol/L (21-32); GLUCOSE,RANDOM 127 mg/dL (74-106); THYROID STIMULATING HORMONE 1.52 uIU/ml (0.358-3.74); TROPONIN I < 0.02 ng/ml (0.00-0.05)
[2016-04-25] MEDS ORDERED: PT OWN MED DRAWER 7, Y5N ONE (09:43)
[2016-04-25] MEDS: NYSTATIN POWDER 100,000 UNITS/GM - 15 GM TOPICAL POWDER TP SCH (09:45)
[2016-04-25] MEDS: ENOXAPARIN NA (PORCINE) 40 MG/0.4 ML DISP.SYRIN SQ SCH (09:45)
[2016-04-25] MEDS: AMIODARONE HCL 200 MG TABLET (FP) PO SCH (09:45)
[2016-04-25] MEDS: HYDROCHLOROTHIAZIDE 12.5 MG CAPSULE (FP) PO SCH (09:45)
[2016-04-25] MEDS: ASPIRIN 325 MG ENTERIC COATED TABLET (FP) PO SCH (09:45)
[2016-04-25] MEDS: METOPROLOL SUCCINATE 50 MG TAB.SR.24H (FP) PO SCH (09:46)
[2016-04-25] MEDS: TAMOXIFEN CITRATE 10 MG TABLET PO SCH (09:46)
[2016-04-25 09:48] VITALS: BP 140/80; PULSE 80; TEMP 97
--- NOTE | 2016-04-25 21:57 | EKG ---
Test Reason : Blood Pressure : / mmHG Vent. Rate : 108 BPM Atrial Rate : 120 BPM P-R Int : 000 ms QRS Dur : 098 ms QT Int : 398 ms P-R-T Axes : 000 033 053 degrees QTc Int : 533 ms ATRIAL FIBRILLATION WITH RAPID VENTRICULAR RESPONSE NONSPECIFIC ST AND T WAVE ABNORMALITY POSSIBLE PROLONGED QT ABNORMAL ECG WHEN COMPARED WITH ECG OF 15-APR-2016 17:52, NO SIGNIFICANT CHANGE WAS FOUND Confirmed by JUANIS SIMONS, PASCALE ([id number]) on 04/25/2016 9:57:36 PM Referred By: Confirmed By:PASCALE OLIVAREZ MD
--- NOTE | 2016-04-26 15:22 | DS ---
DATE OF ADMISSION: 04/23/2016 DATE OF DISCHARGE:04/25/2016 The patient was admitted to the hospital for altered mental status. In the hospital she had a CAT scan done and also blood work and urine infection all negative. She was admitted to the hospital 24 hours. She has no sign of any stroke or infection. She was seen by neurologist. No change was recommended. She was also seen by repairing calibrator and no change was recommended. In the hospital, she had low blood pressure so I stopped the Cozaar. She is improved now. PHYSICAL EXAMINATION: Vital Signs: Her vital signs in the hospital are 130/80, respiration 12, temperature 98. The rest of examination normal. HEENT: Neck supple without JVD. Lungs: Bilaterally clear. General: Alert, awake, oriented. ASSESSMENT: Possible mild transient ischemic attack, hypertension, diabetes, and cardiac arrhythmia. PLAN: Discharge home. Follow with Dr. Sangeetha Bettencourt in 2 or 3 days. Discussed with the son in detail. No new medication has been ordered except stop Cozaar 25. She is not taking it anymore. SRIKANTH ASKEW M.D. [id number]
== END 2016-04-25 12:35 | disposition home or self-care (01) ==
LOC: JER 17:22 → JERBED 22:18 → UNDOADMOB 23:04 → INTOOBSV 23:04 → JERBED 23:04 → J5S 04-24 03:23
PROVIDERS: ADMIT Internal Medicine; ATTEND Internal Medicine
DX: G93.41 Metabolic encephalopathy (principal); R41.82 Altered mental status, unspecified; E11.9 Type 2 diabetes mellitus without complications; I50.9 Heart failure, unspecified; I10 Essential (primary) hypertension; E78.5 Hyperlipidemia, unspecified; Z85.3 Personal history of malignant neoplasm of breast; I48.0 Paroxysmal atrial fibrillation; E03.9 Hypothyroidism, unspecified; R35.0 Frequency of micturition
CPT/HCPCS: 36415; 70450-TC; 71010-TC; 80048; 80053; 81003; 82550; 83735; 84443; 84484; 85025; 87086; 93005; 93010; 99285-25; G0378

== ENCOUNTER 2016-05-20 15:55 | Inpatient (IN) | payer BC ==
[2016-05-20 16:06] VITALS: BMI 28.1
--- NOTE | 2016-05-20 16:22 | PDOC ---
History of Present Illness - General Chief Complaint: Irregular Heart Beat Stated Complaint: DIZZINESS, IRREGULAR HEARTBEAT (REFERRED) Time Seen by Provider: 05/20/16 16:21 - History of Present Illness Initial Comments: 05/20/16 17:03 86 with h/o afib, HTN, HLD, dCHF, DM and recurrent UTI presents to the hospital referred by her [employer] Admin. The pt has been wearing Holter monitor and yesterday she was found to have several sec long pause. Her spray ii painter contacted her and recommended to go to the hospital for further evaluation. She has left sided chest pain from time to tome but unsure how often and when was the last time she had it. Her son who is present at bedside noticed that she has SOB associated with physical activity and is more forgetful recently. The pt was recently hospitalized in [facility] for AMS and she was found to have TIA. She is lois complaining of discomfort with urination, but no increased frequency, urgency. She denies fever, chills.The pt denies palpitations, dizziness, LOC. Past History - Past Medical History Allergies/Adverse Reactions: Allergies Allergy/AdvReac Type Severity Reaction Status Date / Time Sulfa (Sulfonamide Allergy Severe Swelling Verified 05/20/16 15:58 Antibiotics) lisinopril Allergy Intermediate Verified 05/20/16 15:58 Home Medications: Ambulatory Orders Amiodarone HCl [Cordarone -] 100 mg PO DAILY 07/07/14 Atorvastatin Ca [Lipitor] 10 mg PO HS 07/07/14 Docosahexanoic Acid/Epa [Fish Oil Softgel] 1,000 mg PO HS 07/07/14 Furosemide [Lasix -] 40 mg PO DAILY 07/07/14 Levothyroxine [Synthroid -] 50 mcg PO DAILY 07/07/14 Insulin Lispro Protamin/Lispro [Humalog Mix 75-25 Vial] 25 unit SQ BID 04/15/16 Insulin Lispro [Humalog] 15 unit SQ BID 04/15/16 Losartan Potassium 25 mg PO TID 04/15/16 Cyanocobalamin (Vitamin B-12) [B-12] 1,000 mcg PO HS 04/23/16 Lactobacillus Acidophilus [Acidophilus] 1 each PO HS 04/23/16 Hydrochlorothiazide [Hctz -] 12.5 mg PO DAILY cap 04/25/16 Apixaban [Eliquis] 2.5 mg PO BID 05/20/16 Aspirin [ASA -] 81 mg PO DAILY 05/20/16 Cephalexin [Keflex] 250 mg PO AM 05/20/16 Levothyroxine [Synthroid -] 50 mcg PO DAILY 05/20/16 Metoprolol Tartrate 25 mg PO HS 05/20/16 Metoprolol Tartrate [Lopressor -] 50 mg PO AM 05/20/16 Potassium Chloride [Klor-Con 10] 10 meq PO HS 05/20/16 Tamoxifen Citrate 20 mg PO DAILY 05/20/16 Anemia: No Asthma: No Cancer: Yes (LEFT BREAST) Cardiac Disorders: Yes (a fib) CVA: No COPD: No CHF: No Dementia: No Diabetes: Yes GI Disorders: No Disorders: Yes (HX BLADDER INFECTIONS IN PAST) HTN: Yes Hypercholesterolemia: Yes Liver Disease: No Seizures: No Thyroid Disease: Yes - Surgical History Abdominal Surgery: No Appendectomy: No Cardiac Surgery: No Cholecystectomy: No Lung Surgery: No Neurologic Surgery: No Orthopedic Surgery: No - Immunization History Immunization Up to Date: Yes (FLU AND PNA VARICELLA) - Psycho/Social/Smoking Cessation Hx Anxiety: No Suicidal Ideation: Yes Smoking Status: No Smoking History: Never smoked Have you smoked in the past 12 months: No Number of Cigarettes Smoked Daily: 0 Information on smoking cessation initiated: No Hx Alcohol Use: No Drug/Substance Use Hx: No Substance Use Type: None Hx Substance Use Treatment: No Review of Systems - Review of Systems Able to Perform ROS?: Yes Comments:: 05/20/16 17:11 REVIEW OF SYSTEMS CONSTITUTIONAL: Absent: fever, chills, diaphoresis, generalized weakness, malaise, loss of appetite, weight change HEENT: Absent: rhinorrhea, nasal congestion, throat pain, throat swelling, difficulty swallowing, mouth swelling, ear pain, eye pain, visual changes CARDIOVASCULAR: Absent: chest pain, syncope, palpitations, irregular heart rate, lightheadedness , peripheral edema RESPIRATORY: Absent: cough, shortness of breath, dyspnea with exertion, orthopnea, wheezing, stridor, hemoptysis GASTROINTESTINAL: Absent: abdominal pain, abdominal distension, nausea, vomiting, diarrhea, constipation, melena, hematochezia GENITOURINARY: dysuria Absent: frequency, urgency, hesitancy, hematuria, flank pain, genital pain MUSCULOSKELETAL: Absent: myalgia, arthralgia, joint swelling, back pain, neck pain SKIN: Absent: rash, itching, pallor NEUROLOGIC: Absent: headache, focal weakness or paresthesias, dizziness, unsteady gait, seizure, mental status changes, bladder or bowel incontinence Is the patient limited Kinyarwanda proficient: No *Physical Exam - Vital Signs Last Vital Signs Temp Pulse Resp BP Pulse Ox 97.4 F L 55 L 18 188/55 97 05/20/16 15:58 05/20/16 15:58 05/20/16 15:58 05/20/16 15:58 05/20/16 15:58 - Physical Exam Comments: 05/20/16 17:13 GENERAL: The patient is awake, alert, and fully oriented, in no acute distress. HEAD: Normal with no signs of trauma. EYES: PERRL, extraocular movements intact, sclera anicteric, conjunctiva clear. No ptosis. ENT: Ears normal, nares patent, oropharynx clear without exudates, moist mucous membranes. NECK: Trachea midline, full range of motion, supple. LUNGS: Breath sounds equal, clear to auscultation bilaterally, no wheezes, no crackles, no accessory muscle use. HEART: distant heart sound, irregular, S1, S2 without murmur, rub or gallop. ABDOMEN: Soft, nontender, nondistended, normoactive bowel sounds, no guarding, no rebound, no hepatosplenomegaly, no masses. EXTREMITIES: 2+ pulses, warm, no edema. NEUROLOGICAL: Normal speech, no facial asymmetry, motor 5/5 in all extremities, gait not observed. PSYCH: Normal mood, normal affect. SKIN: Warm, dry, normal turgor, no rashes or lesions noted ED Treatment Course - LABORATORY CBC & Chemistry Diagram: 05/20/16 16:49 05/20/16 16:49 Medical Decision Making - Medical Decision Making 05/20/16 17:14 The pt is a 86 year old female who presents for evaluation of her abnormal heart rhytm. We ordered EKG, cardiac profile, CBC,Mg, PTT, PT, INR CMP, UA, CXR , cardiac monitoring. *DC/Admit/Observation/Transfer Diagnosis at time of Disposition: Cardiac arrhythmia
--- NOTE | 2016-05-20 16:42 | PDOC ---
Attending Attestation - Resident Resident Name: AmaliaShivani - ED Attending Attestation I have performed the following: I have examined & evaluated the patient, The case was reviewed & discussed with the resident, I agree w/resident's findings & plan, Exceptions are as noted - HPI HPI: 05/20/16 17:19 86 year old female with pmh of afib, HTN, HLD, dCHF, DM and recurrent UTI sent in by Dr. Vásquez for abnormal holter monitor. The patient has lately been intermittent lightheaded but denies any chest pain or SOB. Denies any recent illnesses. The holter monitor was noted to have sinus pauses > 5 seconds and patient was sent to the ER by Dr. Vásquez. - Physicial Exam PE: 05/20/16 17:56 GENERAL: Awake, alert, and fully oriented, in no acute distress. HEAD: No signs of trauma EYES: PERRLA, EOMI, sclera anicteric, conjunctiva clear ENT: Auricles normal inspection, hearing grossly normal, nares patent, oropharynx clear without exudates. NECK: Normal ROM, supple, no lymphadenopathy, JVD, or masses LUNGS: Breath sounds equal, clear to auscultation bilaterally. No wheezes, and no crackles HEART: Regular rate and rhythm, normal S1 and S2, no murmurs, rubs or gallops ABDOMEN: Soft, nontender, normoactive bowel sounds. No guarding, no rebound. No masses EXTREMITIES: Normal range of motion, no edema. No clubbing or cyanosis. No cords, erythema, or tenderness NEUROLOGICAL: Cranial nerves II through XII grossly intact. Normal speech, normal gait SKIN: Warm, Dry, normal turgor, no rashes or lesions noted. - Medical Decision Making 05/20/16 17:[address] patient on telemetry. It is possible that this could be secondary to electrolyte disorder or from her metoprolol. However, within the differential includes sick sinus syndrome, heart block, other heart arrhythmias. Labs, troponin, chest xray Admit to the hospital. Heart Score/ECG Review #1 ECG reviewed & interpreted by me at: 16:00 05/20/16 16:42 NSR 55 with 1st degree AV block, QTC 577 msec, no std/ace, TWI III, no HOCM, no brugada
[2016-05-20 17:08] LABS: EOSINOPHIL 2.2 % (0-4.5); MCH 30.2 pg (25.7-33.7); MCHC 34.8 g/dl (32.0-36.0); MEAN CELL VOLUME 86.6 fl (80-96); MEAN PLT VOLUME 8.2 fl (7.5-11.1); NEUTROPHILS 62.8 % (42.8-82.8); PLATELET COUNT 294 K/MM3 (134-434); RDW 14.1 % (11.6-15.6); WHITE BLOOD COUNT 10.7 K/mm3 (4.0-10.0)
[2016-05-20 17:28] LABS: INR 1.19 (0.82-1.09); PROTHROMBIN TIME (PATIENT) 13.1 SEC (9.98-11.88)
[2016-05-20 17:40] LABS: ALBUMIN 3.5 g/dl (3.4-5.0); ANION GAP 13 (8-16); CALCIUM 8.1 mg/dL (8.5-10.1); CO2 26 mmol/L (21-32); GLUCOSE,RANDOM 194 mg/dL (74-106)
[2016-05-20 17:46] LABS: ALK PHOS 37 U/L (45-117); BILIRUBIN,TOTAL 0.5 mg/dL (0.2-1.0); CREATININE 1.7 mg/dL (0.55-1.02); SGPT/ALT 19 U/L (12-78); TOT PROT 7.2 g/dl (6.4-8.2); TROPONIN I < 0.02 ng/ml (0.00-0.05)
[2016-05-20 17:50] LABS: MAGNESIUM 2.4 mg/dL (1.8-2.4)
[2016-05-20 18:25] LABS: SGOT/AST 14 U/L (15-37)
--- NOTE | 2016-05-20 18:32 | PDOC ---
*Physical Exam - Vital Signs Last Vital Signs Temp Pulse Resp BP Pulse Ox 97.4 F L 55 L 18 188/55 97 05/20/16 15:58 05/20/16 15:58 05/20/16 15:58 05/20/16 15:58 05/20/16 15:58 ED Treatment Course - LABORATORY CBC & Chemistry Diagram: 05/20/16 16:49 05/20/16 16:49 - ADDITIONAL ORDERS Additional order review: Laboratory Results 05/20/16 05/20/16 16:49 16:49 INR 1.19 H PTT (Actin FS) 33.0 Sodium 142 Potassium 3.6 Chloride 103 Carbon Dioxide 26 Anion Gap 13 BUN 41 H D Creatinine 1.7 H D Creat Clearance w eGFR 28.63 Random Glucose 194 H D Calcium 8.1 L Magnesium 2.4 Total Bilirubin 0.5 AST 14 L ALT 19 Alkaline Phosphatase 37 L Creatine Kinase 57 Troponin I < 0.02 Total Protein 7.2 Albumin 3.5 05/20/16 16:49 RBC 3.93 MCV 86.6 MCHC 34.8 RDW 14.1 MPV 8.2 Neutrophils % 62.8 Lymphocytes % 25.1 Monocytes % 8.9 Eosinophils % 2.2 Basophils % 1.0 - RADIOLOGY Radiology Studies Ordered: Category Date Time Status CHEST X-RAY PORTABLE* [RAD] Stat Radiology 05/20/16 16:41 Completed Medical Decision Making - Medical Decision Making 05/20/16 18:30 CBC, BMP 05/20/16 16:49 05/20/16 16:49 CMP Sodium 142 mmol/L (136-145) 05/20/16 16:49 Potassium 3.6 mmol/L (3.5-5.1) 05/20/16 16:49 Chloride 103 mmol/L (98-107) 05/20/16 16:49 Carbon Dioxide 26 mmol/L (21-32) 05/20/16 16:49 Anion Gap 13 (8-16) 05/20/16 16:49 BUN 41 mg/dL (7-18) H D 05/20/16 16:49 Creatinine 1.7 mg/dL (0.55-1.02) H D 05/20/16 16:49 Creat Clearance w eGFR 28.63 (>60) 05/20/16 16:49 Random Glucose 194 mg/dL (74-106) H D 05/20/16 16:49 Calcium 8.1 mg/dL (8.5-10.1) L 05/20/16 16:49 Magnesium 2.4 mg/dL (1.8-2.4) 05/20/16 16:49 Total Bilirubin 0.5 mg/dL (0.2-1.0) 05/20/16 16:49 AST 14 U/L (15-37) L 05/20/16 16:49 ALT 19 U/L (12-78) 05/20/16 16:49 Alkaline Phosphatase 37 U/L (45-117) L 05/20/16 16:49 Creatine Kinase 57 IU/L (26-192) 05/20/16 16:49 Troponin I < 0.02 ng/ml (0.00-0.05) 05/20/16 16:49 Total Protein 7.2 g/dl (6.4-8.2) 05/20/16 16:49 Albumin 3.5 g/dl (3.4-5.0) 05/20/16 16:49 Patient noted have a creatinine 1.7. Although, the patient is eating and appears well. I discussed the case with Dr. Soriano who accepts patient for telemetry admission. Admission diagnosis: Acute renal failure, arrhythmia *DC/Admit/Observation/Transfer Diagnosis at time of Disposition: Arrhythmia Qualifiers: Arrhythmia type: other cardiac arrhythmia Qualified Code(s): I49.8 - Other specified cardiac arrhythmias Acute renal failure Qualifiers: Acute renal failure type: unspecified Qualified Code(s): N17.9 - Acute kidney failure, unspecified - Discharge Dispostion Condition at time of disposition: Stable Admit: Yes - Referrals Referrals: Sangeetha Bettencourt MD [Primary Care Provider] - - Patient Instructions - Post Discharge Activity
--- NOTE | 2016-05-20 19:31 | HP ---
Admitting History and Physical - Primary Care Physician PCP: Sangeetha Bettencourt - Admission Chief Complaint: bradycardia on Holter History of Present Illness: Sent in by for significant pauses and bradycardia on Holter monitor for further eval. Otherwise she feels well, but son noted recently-for past month or so- that pt has had episodes of slight confusion and difficulty finding words. Independent in her daily activities. History Source: Patient, Family Member Limitations to Obtaining History: No Limitations - Past Medical History Cardiovascular: Yes: AFIB, CAD, HTN, Hyperlipdemia Renal/: Yes: UTI, Other (urinary frequency and urgency ) Heme/Onc: Yes: Other (h/o breast cancer left) Infectious Disease: Yes: Other (recurrent UTI) Endocrine: Yes: Diabetes Mellitus (insulin dependent), Hypothyroidism Dermatology: Yes: Squamous Cell (s/p excision 5 days ago) - Past Surgical History Additional Past Surgical History: left breast lumpectomy - Smoking History Smoking history: Never smoked Have you smoked in the past 12 months: No Aproximately how many cigarettes per day: 0 - Alcohol/Substance Use Hx Alcohol Use: No - Social History Usual Living Arrangement: Yes: With Child ADL: Independent (uses cane and walker has had h/o frequent falls.) History of Recent Travel: No Home Medications - Allergies Allergies/Adverse Reactions: Allergies Allergy/AdvReac Type Severity Reaction Status Date / Time Sulfa (Sulfonamide Allergy Severe Swelling Verified 05/20/16 15:58 Antibiotics) lisinopril Allergy Intermediate Verified 05/20/16 15:58 - Home Medications Home Medications: Ambulatory Orders Amiodarone HCl [Cordarone -] 100 mg PO DAILY 07/07/14 Atorvastatin Ca [Lipitor] 10 mg PO HS 07/07/14 Docosahexanoic Acid/Epa [Fish Oil Softgel] 1,000 mg PO HS 07/07/14 Furosemide [Lasix -] 40 mg PO DAILY 07/07/14 Levothyroxine [Synthroid -] 50 mcg PO DAILY 07/07/14 Insulin Lispro Protamin/Lispro [Humalog Mix 75-25 Vial] 25 unit SQ BID 04/15/16 Insulin Lispro [Humalog] 15 unit SQ BID 04/15/16 Losartan Potassium 25 mg PO TID 04/15/16 Cyanocobalamin (Vitamin B-12) [B-12] 1,000 mcg PO HS 04/23/16 Lactobacillus Acidophilus [Acidophilus] 1 each PO HS 04/23/16 Hydrochlorothiazide [Hctz -] 12.5 mg PO DAILY cap 04/25/16 Apixaban [Eliquis] 2.5 mg PO BID 05/20/16 Aspirin [ASA -] 81 mg PO DAILY 05/20/16 Cephalexin [Keflex] 250 mg PO AM 05/20/16 Levothyroxine [Synthroid -] 50 mcg PO DAILY 05/20/16 Metoprolol Tartrate 25 mg PO HS 05/20/16 Metoprolol Tartrate [Lopressor -] 50 mg PO AM 05/20/16 Potassium Chloride [Klor-Con 10] 10 meq PO HS 05/20/16 Tamoxifen Citrate 20 mg PO DAILY 05/20/16 Review of Systems - Review of Systems Constitutional: denies: No Symptoms, Chills, Diaphoresis, Fever HENT: denies: No Symptoms Neck: denies: No Symptoms Cardiovascular: denies: No Symptoms Respiratory: denies: No Symptoms Gastrointestinal: denies: No Symptoms Genitourinary: denies: No Symptoms Breasts: denies: No Symptoms Reported Musculoskeletal: denies: No Symptoms Neurological: denies: No Symptoms Hematology/Lymphatic: denies: No Symptoms Psychiatric: denies: No Symptoms Physical Examination Vital Signs: Vital Signs Temperature 97.4 F L 05/20/16 15:58 Pulse Rate 55 L 05/20/16 15:58 Respiratory Rate 18 05/20/16 15:58 Blood Pressure 188/55 05/20/16 15:58 O2 Sat by Pulse Oximetry (%) 97 05/20/16 15:58 Constitutional: Yes: Well Nourished, No Distress, Calm Eyes: Yes: Conjunctiva Clear HENT: Yes: Atraumatic, Normocephalic Neck: Yes: Trachea Midline Cardiovascular: Yes: Regular Rate and Rhythm Respiratory: Yes: CTA Bilaterally Gastrointestinal: Yes: Normal Bowel Sounds, Soft Extremities: Yes: WNL Edema: No Neurological: Yes: WNL ...Motor Strength: WNL Psychiatric: Yes: WNL Labs: Laboratory Results - last 24 hr 05/20/16 05/20/16 05/20/16 16:49 16:49 16:49 WBC 10.7 H RBC 3.93 Hgb 11.8 Hct 34.0 MCV 86.6 MCHC 34.8 RDW 14.1 Plt Count 294 D MPV 8.2 Neutrophils % 62.8 Lymphocytes % 25.1 Monocytes % 8.9 Eosinophils % 2.2 Basophils % 1.0 INR 1.19 H PTT (Actin FS) 33.0 Sodium 142 Potassium 3.6 Chloride 103 Carbon Dioxide 26 Anion Gap 13 BUN 41 H D Creatinine 1.7 H D Creat Clearance w eGFR 28.63 Random Glucose 194 H D Calcium 8.1 L Magnesium 2.4 Total Bilirubin 0.5 AST 14 L ALT 19 Alkaline Phosphatase 37 L Creatine Kinase 57 Troponin I < 0.02 Total Protein 7.2 Albumin 3.5 Imaging - Results Chest X-ray: Report Reviewed Problem List - Problems (1) Arrhythmia Code(s): I49.9 - CARDIAC ARRHYTHMIA, UNSPECIFIED Qualifiers: Arrhythmia type: atrial fibrillation Qualified Code(s): I49.8 - Other specified cardiac arrhythmias (2) Diabetes mellitus Code(s): E11.9 - TYPE 2 DIABETES MELLITUS WITHOUT COMPLICATIONS Qualifiers: Diabetes mellitus type: type 1 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 mellitus complication detail: with diabetic retinopathy (3) Hypertension Code(s): I10 - ESSENTIAL (PRIMARY) HYPERTENSION Qualifiers: Hypertension type: essential hypertension Qualified Code(s): I10 - Essential (primary) hypertension (4) Hypothyroidism Code(s): E03.9 - HYPOTHYROIDISM, UNSPECIFIED Qualifiers: Hypothyroidism type: unspecified hypothyroidism Qualified Code(s): E03.9 - Hypothyroidism, unspecified (5) Renal insufficiency Code(s): N28.9 - DISORDER OF KIDNEY AND URETER, UNSPECIFIED Assessment/Plan hold metoprolol in view of renal insuff -higher creat bun than 1 month ago-hold ARB and diuretics for now(losartan was increased in past from 25 to 25 BID) telemetry monitoring adjust insulin to improve sugar control cont eliblancheis
--- NOTE | 2016-05-20 20:29 | PN ---
Progress Note (short form) - Note Progress Note: Recently evaluated in office: PAF, recent TIA maintained on Eliquis, amiodarone and Metoprolol 50mg qam, 25mg qpm. A holter was done due to bradycardia noted on office ECG. Today received notification of 5.4 second pause. Referred to ER for telemetry, adjustment of B-tiff and possible need PPM. As per son, no symptoms but she is poor historian. REC: Hold evening Metoprolol Tele Continue Eliquis for now. May need PPM if pauses >3 seconds persist.
[2016-05-20] MEDS ORDERED: INSULIN (NOVOLOG) ASPART 100 UNITS/ML 10ML VIAL SQ SCH (22:00)
[2016-05-20 22:08] LABS: URINE APPEARANCE CLEAR; URINE BILIRUBIN NEGATIVE (NEGATIVE); URINE BLOOD NEGATIVE (NEGATIVE); URINE COLOR STRAW; URINE GLUCOSE (UA) 1+ (NEGATIVE); URINE KETONE NEGATIVE (NEGATIVE); URINE NITRITE NEGATIVE (NEGATIVE); URINE PROTEIN NEGATIVE (NEGATIVE); URINE UROBILINOGEN NEGATIVE E.U./dl (0.2-1.0)
[2016-05-20] MEDS: ATORVASTATIN CA 10 MG TABLET (FP) PO SCH (22:10)
[2016-05-20] MEDS: APIXABAN 2.5 MG TABLET PO SCH (22:10)
[2016-05-20] MEDS: INSULIN SLIDING SCALE (NOVOLOG) 1 VIAL SQ SCH (22:36)
[2016-05-20 22:39] LABS: URINE LEUK ESTERASE 2+ (NEGATIVE)
[2016-05-20 22:42] LABS: URINE BACTERIA FEW /hpf (NONE SEEN); URINE HYALINE CAST 1 /lpf; URINE RBC 1 /hpf (0-3); URINE WBC 33 /hpf (3-5)
[2016-05-21] MEDS: LEVOTHYROXINE NA 50 MCG TABLET (FP) PO SCH (06:20)
[2016-05-21] MEDS: CEPHALEXIN MONOHYDRATE 250 MG CAPSULE (FP) PO SCH (06:20)
[2016-05-21] MEDS: INSULIN SLIDING SCALE (NOVOLOG) 1 VIAL SQ SCH ×3 (06:21→22:46)
[2016-05-21] MEDS: INSULIN (NOVOLOG MIX 70/30) 100 UNITS/ML MDV SQ SCH ×2 (06:25→17:40)
[2016-05-21 08:22] LABS: BASOPHIL 0.4 % (0-2.0); EOSINOPHIL 1.9 % (0-4.5); MCHC 34.4 g/dl (32.0-36.0); MEAN CELL VOLUME 87.3 fl (80-96); MEAN PLT VOLUME 8.2 fl (7.5-11.1); NEUTROPHILS 67.8 % (42.8-82.8); PLATELET COUNT 227 K/MM3 (134-434); WHITE BLOOD COUNT 9.3 K/mm3 (4.0-10.0)
[2016-05-21 08:34] LABS: ALBUMIN 2.9 g/dl (3.4-5.0); ANION GAP 10 (8-16); CALCIUM 7.6 mg/dL (8.5-10.1); CO2 28 mmol/L (21-32); GLUCOSE,RANDOM 225 mg/dL (74-106)
--- NOTE | 2016-05-21 08:41 | PN ---
Progress Note (short form) - Note Progress Note: Nacho sinus around 50 overnight, no pauses noted. No complaints. CBC, BMP 05/21/16 06:07 Vital Signs Period Temp Pulse Resp BP Sys/Guerra Pulse Ox Last 24 Hr 97.3 F-98.1 F 47-55 18-20 121-188/51-63 97-100 S1S2 RRR Lungs cta No edema Imp Afib Bradycardia with pause on Holter IDDM HTN CAD h/o breast ca. Plan cont monitor adjust waterpill depending on renal fnct. 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
[2016-05-21 08:47] LABS: ALK PHOS 32 U/L (45-117); BILIRUBIN,TOTAL 0.6 mg/dL (0.2-1.0); CREATININE 1.3 mg/dL (0.55-1.02); SGOT/AST 8 U/L (15-37); SGPT/ALT 16 U/L (12-78); THYROID STIMULATING HORMONE 1.49 uIU/ml (0.358-3.74); TROPONIN I < 0.02 ng/ml (0.00-0.05)
[2016-05-21] MEDS: ASPIRIN 81 MG CHEWABLE TABLETS PO SCH (09:43)
[2016-05-21] MEDS: LOSARTAN POTASSIUM 25 MG TABLET PO SCH (09:43)
[2016-05-21] MEDS: APIXABAN 2.5 MG TABLET PO SCH ×2 (09:44→22:46)
[2016-05-21] MEDS: TAMOXIFEN CITRATE 10 MG TABLET PO SCH (09:44)
--- NOTE | 2016-05-21 09:49 | PN ---
Progress Note, Physician Chief Complaint: No distress Alert and oriented TELE: Sinus justin 40s No sig pauses - Current Medication List Current Medications: Active Medications Amiodarone HCl (Cordarone -) 100 mg PO DAILY [facility] Apixaban (Eliquis -) 2.5 mg PO BID [facility] Last Admin: 05/20/16 22:10 Dose: 2.5 mg Aspirin (Asa -) 81 mg PO DAILY [facility] Atorvastatin Calcium (Lipitor -) 10 mg PO HS [facility] Last Admin: 05/20/16 22:10 Dose: 10 mg Cephalexin HCl (Keflex -) 250 mg PO AM [facility] Last Admin: 05/21/16 06:20 Dose: 250 mg Clindamycin HCl (Cleocin -) 150 mg PO Q6HPO [facility] Insulin Aspart (Novolog Mix 70/30 Vial) 25 units SQ BIDAC [facility] Last Admin: 05/21/16 06:25 Dose: 25 units Insulin Aspart (Novolog Vial Sliding Scale -) 1 vial SQ ACHS [facility] PRN Reason: Protocol Last Admin: 05/21/16 06:21 Dose: 4 units Levothyroxine Sodium (Synthroid -) 50 mcg PO AM [facility] Last Admin: 05/21/16 06:20 Dose: 50 mcg Losartan Potassium (Cozaar -) 25 mg PO DAILY [facility] Tamoxifen Citrate (Tamoxifen Citrate) 20 mg PO DAILY [facility] - Objective Vital Signs: Vital Signs Temperature 97.8 F 05/21/16 05:32 Pulse Rate 50 L 05/21/16 05:32 Respiratory Rate 20 05/21/16 05:32 Blood Pressure 139/63 05/21/16 05:32 O2 Sat by Pulse Oximetry (%) 98 05/20/16 21:00 Constitutional: Yes: No Distress Cardiovascular: Yes: Regular Rate and Rhythm Respiratory: Yes: CTA Bilaterally Gastrointestinal: Yes: Soft Edema: No Neurological: Yes: Alert, Oriented Labs: CBC, BMP 05/21/16 06:07 05/21/16 06:07 INR, PTT INR 1.19 (0.82-1.09) H 05/20/16 16:49 Laboratory Tests 05/20/16 05/21/16 05/21/16 16:49 06:07 06:07 WBC 9.3 Hgb 10.5 L D Plt Count 227 D Potassium 3.4 L BUN 41 H D 41 H Creatinine 1.7 H D 1.3 H D Troponin I < 0.02 < 0.02 TSH 1.49 D - ....Imaging EKG: Image Reviewed Assessment/Plan PAF Significant pause of 5.4 seconds on outpatient holter while on amio and metoprolol REC: Cont Eliquis Ok to resume low dose amio Hold beta tiff and observe tele until tomorrow If no further pauses of clinical significance (3 seconds or more) can d/c home in AM. If recurrent pauses > 3-3.5 seconds off beta tiff, will likely recommend PPM
[2016-05-21] MEDS ORDERED: TAMOXIFEN CITRATE 20 MG PO SCH (10:00)
--- NOTE | 2016-05-21 11:50 | EKG ---
Test Reason : Blood Pressure : / mmHG Vent. Rate : 055 BPM Atrial Rate : 055 BPM P-R Int : 256 ms QRS Dur : 096 ms QT Int : 604 ms P-R-T Axes : 043 019 035 degrees QTc Int : 577 ms POOR DATA QUALITY, INTERPRETATION MAY BE ADVERSELY AFFECTED SINUS BRADYCARDIA WITH 1ST DEGREE A-V BLOCK INCOMPLETE RBBB PROLONGED QT NONSPECIFIC ST ABNORMALITY ABNORMAL ECG Confirmed by BRIELLE KENNY MD ([id number]) on 05/21/2016 11:50:22 AM Referred By: Confirmed By:BRIELLE KENNY MD
[2016-05-21] MEDS: CLINDAMYCIN HCL 150 MG CAPSULE (FP) PO SCH ×2 (12:30→22:46)
[2016-05-21] MEDS: AMIODARONE HCL 200 MG TABLET (FP) PO SCH (12:30)
[2016-05-21] MEDS ORDERED: INSULIN (NOVOLOG) ASPART 100 UNITS/ML 10ML VIAL SQ ONE (17:15)
[2016-05-21] MEDS: ATORVASTATIN CA 10 MG TABLET (FP) PO SCH (22:46)
[2016-05-22] MEDS: INSULIN (NOVOLOG MIX 70/30) 100 UNITS/ML MDV SQ SCH (07:00)
[2016-05-22] MEDS: INSULIN SLIDING SCALE (NOVOLOG) 1 VIAL SQ SCH ×2 (07:00→12:07)
[2016-05-22] MEDS: CLINDAMYCIN HCL 150 MG CAPSULE (FP) PO SCH ×2 (07:00→12:08)
[2016-05-22] MEDS: CEPHALEXIN MONOHYDRATE 250 MG CAPSULE (FP) PO SCH (07:00)
[2016-05-22] MEDS: LEVOTHYROXINE NA 50 MCG TABLET (FP) PO SCH (07:01)
--- NOTE | 2016-05-22 07:21 | PN ---
Progress Note (short form) - Note Progress Note: Nacho sinus around 40-50 overnight, no pauses noted, 60 now while awake. No complaints. Vital Signs Period Temp Pulse Resp BP Sys/Guerra Pulse Ox Last 24 Hr 97.2 F-97.9 F 47-57 18-20 127-163/45-66 98-98 S1S2 RRR Lungs cta No edema Imp Afib-paroxysmal Bradycardia IDDM HTN CAD h/o breast ca. Plan cont to hold beta tiff no rapid rate noted cardiology f/up regarding future plan Problem List - Problems (1) Arrhythmia Code(s): I49.9 - CARDIAC ARRHYTHMIA, UNSPECIFIED Qualifiers: Arrhythmia type: atrial fibrillation Qualified Code(s): I49.8 - Other specified cardiac arrhythmias (2) Diabetes mellitus Code(s): E11.9 - TYPE 2 DIABETES MELLITUS WITHOUT COMPLICATIONS Qualifiers: Diabetes mellitus type: type 1 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 mellitus complication detail: with diabetic retinopathy (3) Hypertension Code(s): I10 - ESSENTIAL (PRIMARY) HYPERTENSION Qualifiers: Hypertension type: essential hypertension Qualified Code(s): I10 - Essential (primary) hypertension (4) Hypothyroidism Code(s): E03.9 - HYPOTHYROIDISM, UNSPECIFIED Qualifiers: Hypothyroidism type: unspecified hypothyroidism Qualified Code(s): E03.9 - Hypothyroidism, unspecified (5) Renal insufficiency Code(s): N28.9 - DISORDER OF KIDNEY AND URETER, UNSPECIFIED
--- NOTE | 2016-05-22 08:53 | PN ---
Progress Note, Physician Chief Complaint: comfortable in no distress TELE: NSR with first degree AV block No sig pauses noted in last 48 hours on tele off beta tiff, no elevated rates either - Current Medication List Current Medications: Active Medications Amiodarone HCl (Cordarone -) 100 mg PO DAILY [facility] Last Admin: 05/21/16 12:30 Dose: 100 mg Apixaban (Eliquis -) 2.5 mg PO BID [facility] Last Admin: 05/21/16 22:46 Dose: 2.5 mg Aspirin (Asa -) 81 mg PO DAILY [facility] Last Admin: 05/21/16 09:43 Dose: 81 mg Atorvastatin Calcium (Lipitor -) 10 mg PO HS [facility] Last Admin: 05/21/16 22:46 Dose: 10 mg Cephalexin HCl (Keflex -) 250 mg PO AM [facility] Last Admin: 05/22/16 07:00 Dose: Not Given Clindamycin HCl (Cleocin -) 150 mg PO Q6HPO [facility] Last Admin: 05/22/16 07:00 Dose: 150 mg Insulin Aspart (Novolog Mix 70/30 Vial) 25 units SQ BIDAC [facility] Last Admin: 05/22/16 07:00 Dose: 25 units Insulin Aspart (Novolog Vial Sliding Scale -) 1 vial SQ ACHS [facility] PRN Reason: Protocol Last Admin: 05/22/16 07:00 Dose: 7 units Levothyroxine Sodium (Synthroid -) 50 mcg PO AM [facility] Last Admin: 05/22/16 07:01 Dose: 50 mcg Losartan Potassium (Cozaar -) 25 mg PO DAILY [facility] Last Admin: 05/21/16 09:43 Dose: 25 mg Tamoxifen Citrate (Tamoxifen Citrate) 20 mg PO DAILY [facility] Last Admin: 05/21/16 09:44 Dose: 20 mg - Objective Vital Signs: Vital Signs Temperature 97.6 F 05/22/16 05:14 Pulse Rate 47 L 05/22/16 05:14 Respiratory Rate 18 05/22/16 05:14 Blood Pressure 163/66 05/22/16 05:14 O2 Sat by Pulse Oximetry (%) 98 05/21/16 21:00 Constitutional: Yes: Calm Cardiovascular: Yes: Regular Rate and Rhythm Respiratory: Yes: CTA Bilaterally Gastrointestinal: Yes: Soft Edema: No Neurological: Yes: Alert, Oriented Labs: CBC, BMP 05/21/16 06:07 05/21/16 06:07 INR, PTT INR 1.19 (0.82-1.09) H 05/20/16 16:49 - ....Imaging EKG: Image Reviewed (TELE: NSR w 1st degree AV block. No sig pauses) Assessment/Plan Assessment/Plan PAF Significant pause of 5.4 seconds on outpatient holter while on amio and metoprolol REC: Cont Eliquis and low dose amio She has had no further significant pauses in last 48 hours after d/c beta tiff with no evidence of AF w/ RVR. It is reasonable to discharge home off beta blockers and follow up closely as outpatient, will also arrange an outpatient EP consult. Given resolution of rhythm issue off beta tiff, PPM probably not needed- at least acutely.
--- NOTE | 2016-05-22 09:14 | DS ---
Physical Examination Vital Signs: Vital Signs Temperature 97.6 F 05/22/16 05:14 Pulse Rate 47 L 05/22/16 05:14 Respiratory Rate 18 05/22/16 05:14 Blood Pressure 163/66 05/22/16 05:14 O2 Sat by Pulse Oximetry (%) 98 05/21/16 21:00 Constitutional: Yes: No Distress, Calm Eyes: Yes: EOM Intact HENT: Yes: Normocephalic Neck: Yes: Trachea Midline Cardiovascular: Yes: Regular Rate and Rhythm Respiratory: Yes: CTA Bilaterally Edema: No Peripheral Pulses WNL: Yes Integumentary: Yes: WNL Psychiatric: Yes: WNL Labs: CBC, BMP 05/21/16 06:07 05/21/16 06:07 Discharge Summary Reason For Visit: ACUTE RENAL FAILURE Current Active Problems Acute renal failure (Acute) Arrhythmia (Acute) Renal insufficiency (Acute) Hospital Course: Admitted for monitoring after home Holter showed significant pauses. Upon admission beta blockers were stopped and also diuretics were stopped due to acute renal insufficiency. After 40 hours of monitoring heart rate is acceptable without pauses or tachyarrhythmias. Renal function better. She is medically stable to discharge home with close outpt follow up. Condition: Fair - Instructions Diet, Activity, Other Instructions: call for appt. Referrals: Sangeetha Bettencourt MD [Primary Care Provider] - Disposition: HOME - Home Medications Comprehensive Discharge Medication List: Ambulatory Orders Amiodarone HCl [Cordarone -] 100 mg PO DAILY 07/07/14 Atorvastatin Ca [Lipitor] 10 mg PO HS 07/07/14 Docosahexanoic Acid/Epa [Fish Oil Softgel] 1,000 mg PO HS 07/07/14 Levothyroxine [Synthroid -] 50 mcg PO DAILY 07/07/14 Insulin Lispro Protamin/Lispro [Humalog Mix 75-25 Vial] 25 unit SQ BID 04/15/16 Insulin Lispro [Humalog] 15 unit SQ BID 04/15/16 Cyanocobalamin (Vitamin B-12) [B-12] 1,000 mcg PO HS 04/23/16 Lactobacillus Acidophilus [Acidophilus] 1 each PO HS 04/23/16 Apixaban [Eliquis] 2.5 mg PO BID 05/20/16 Cephalexin [Keflex] 250 mg PO AM 05/20/16 Tamoxifen Citrate 20 mg PO DAILY 05/20/16 Losartan Potassium [Cozaar -] 25 mg PO DAILY tablet 05/22/16
[2016-05-22] MEDS: ASPIRIN 81 MG CHEWABLE TABLETS PO SCH (09:48)
[2016-05-22] MEDS: AMIODARONE HCL 200 MG TABLET (FP) PO SCH (09:48)
[2016-05-22] MEDS: APIXABAN 2.5 MG TABLET PO SCH (09:49)
[2016-05-22] MEDS: LOSARTAN POTASSIUM 25 MG TABLET PO SCH (09:49)
[2016-05-22] MEDS: TAMOXIFEN CITRATE 10 MG TABLET PO SCH (09:50)
[2016-05-22 10:38] VITALS: BP 135/62; PULSE 55; TEMP 98
== END 2016-05-22 14:57 | disposition home or self-care (01) | DRG 309 ==
LOC: JER 15:55 → JERBED 18:31 → J4W 21:06
PROVIDERS: ADMIT Internal Medicine; ATTEND Internal Medicine
DX: I48.0 Paroxysmal atrial fibrillation (principal); N17.9 Acute kidney failure, unspecified; I50.32 Chronic diastolic (congestive) heart failure; R00.1 Bradycardia, unspecified; E78.5 Hyperlipidemia, unspecified; I11.0 Hypertensive heart disease with heart failure; E11.9 Type 2 diabetes mellitus without complications; Z79.4 Long term (current) use of insulin; I25.10 Atherosclerotic heart disease of native coronary artery without angina pectoris; E03.9 Hypothyroidism, unspecified; Z85.3 Personal history of malignant neoplasm of breast
CPT/HCPCS: 36415; 71010-TC; 80053; 81003; 81015; 82550; 83735; 84443; 84484; 85025; 85610; 85730; 93005; 93010; 99285-25

== ENCOUNTER 2017-01-17 18:33 | Emergency (ER) | payer BC, OTHER ==
[2017-01-17 18:38] VITALS: TEMP 97.5; BMI 27.7
--- NOTE | 2017-01-17 18:39 | PDOC ---
Rapid Medical Evaluation Chief Complaint: Injury Time Seen by Provider: 01/17/17 18:35 Medical Evaluation: Allergies Allergy/AdvReac Type Severity Reaction Status Date / Time Sulfa (Sulfonamide Allergy Severe Swelling Verified 05/20/16 15:58 Antibiotics) lisinopril Allergy Intermediate Verified 05/20/16 15:58 01/17/17 18:35 I have performed a brief in person evaluation of this patient. The patient presents with chief complaint of :mechanical fall backwards hit head and back. no LOC. Pt takes blood thinners, history of Afib, DM denies dizzyness pre or post fall. Pertinent PE findings:none I have ordered the following: The patient will proceed to the ER for further evaluation.
--- NOTE | 2017-01-17 20:02 | PDOC ---
History of Present Illness - General History Source: Patient, Family (Son) Exam Limitations: No Limitations - History of Present Illness Initial Comments: 01/17/17 20:27 The patient is an 86 year old female with a significant PMH of HTN, hyperlipidemia, diabetes, dCHF, recurrent UTI, and chronic right shoulder pain who presents to the emergency department with lower back pain and a left elbow abrasion s/p fall earlier today. The patient reports falling backwards onto her back on the ground outside, hitting her head and left elbow. The patients son reports giving the patient Tylenol to some relief. The patient acknowledges previous similar episodes of falling backwards onto her back. The patient reports she is on Eliquis and presents to the ED with her son for evaluation. The patient denies chest pain, shortness of breath, headache and dizziness. Denies fever, chills, nausea, vomit, diarrhea and constipation. Denies dysuria, frequency, urgency and hematuria. Allergies: Sulfonamide antibiotics. Lisinopril Past surgical history: Left breast lumpectomy. Social history: No reported cigarette, alcohol or drug use. PCP: Dr. Bettencourt <Anant Godfrey - Last Filed: 01/17/17 20:28> <Evangelina Willis - Last Filed: 01/21/17 11:46> - General Chief Complaint: Injury Stated Complaint: FALL/INJURY/ On Blood Thinner Time Seen by Provider: 01/17/17 18:35 Past History <Anant Godfrey - Last Filed: 01/17/17 20:28> - Past Medical History Anemia: No Asthma: No Cancer: Yes (LEFT BREAST lumpectomy) Cardiac Disorders: Yes (a fib) CVA: No COPD: No CHF: No Dementia: No Diabetes: Yes GI Disorders: No Disorders: Yes (HX BLADDER INFECTIONS IN PAST) HTN: Yes Hypercholesterolemia: Yes Liver Disease: No Seizures: No Thyroid Disease: Yes - Surgical History Abdominal Surgery: No Appendectomy: No Cardiac Surgery: No Cholecystectomy: No Lung Surgery: No Neurologic Surgery: No Orthopedic Surgery: No - Immunization History Immunization Up to Date: Yes (FLU AND PNA VARICELLA) - Suicide/Smoking/Psychosocial Hx Smoking Status: No Smoking History: Never smoked Have you smoked in the past 12 months: No Number of Cigarettes Smoked Daily: 0 Information on smoking cessation initiated: No Hx Alcohol Use: No Drug/Substance Use Hx: No Substance Use Type: None Hx Substance Use Treatment: No <Evangelina Willis - Last Filed: 01/21/17 11:46> - Past Medical History Allergies/Adverse Reactions: Allergies Allergy/AdvReac Type Severity Reaction Status Date / Time Sulfa (Sulfonamide Allergy Severe Swelling Verified 01/17/17 18:38 Antibiotics) lisinopril Allergy Intermediate Verified 01/17/17 18:38 Home Medications: Ambulatory Orders Amiodarone HCl [Cordarone -] 125 mg PO DAILY 07/07/14 Atorvastatin Ca [Lipitor] 10 mg PO HS 07/07/14 Docosahexanoic Acid/Epa [Fish Oil Softgel] 1,000 mg PO HS 07/07/14 Levothyroxine [Synthroid -] 50 mcg PO DAILY 07/07/14 Insulin Lispro Protamin/Lispro [Humalog Mix 75-25 Vial] 0 unit SQ BID 04/15/16 Cyanocobalamin (Vitamin B-12) [B-12] 1,000 mcg PO HS 04/23/16 Lactobacillus Acidophilus [Acidophilus] 1 each PO HS 04/23/16 Apixaban [Eliquis] 2.5 mg PO BID 05/20/16 Cephalexin [Keflex] 250 mg PO AM 05/20/16 Tamoxifen Citrate 20 mg PO DAILY 05/20/16 Losartan Potassium [Cozaar -] 25 mg PO DAILY tablet 05/22/16 Cephalexin Monohydrate [Keflex -] 500 mg PO BID #14 capsule 01/18/17 Furosemide [Lasix] 40 mg PO DAILY 01/18/17 Metoprolol Tartrate 100 mg PO DAILY 01/18/17 Potassium Chloride [K-Dur -] 10 meq PO BID 01/18/17 Ciprofloxacin [Cipro -] 500 mg PO Q12H #14 tablet 01/21/17 Review of Systems - Review of Systems Able to Perform ROS?: Yes Comments:: 01/17/17 20:27 GENERAL/CONSTITUTIONAL: No fever or chills. No weakness. HEAD, EYES, EARS, NOSE AND THROAT: No change in vision. No ear pain or discharge. No sore throat. CARDIOVASCULAR: No chest pain or shortness of breath. RESPIRATORY: No cough, wheezing, or hemoptysis. GASTROINTESTINAL: No nausea, vomiting, diarrhea or constipation. GENITOURINARY: No dysuria, frequency, or change in urination. MUSCULOSKELETAL: (+) Lower back pain. No joint pain. No neck pain. SKIN: (+) Left elbow abrasion. NEUROLOGIC: No headache, vertigo, loss of consciousness, or change in strength/ sensation. ENDOCRINE: No increased thirst. No abnormal weight change. HEMATOLOGIC/LYMPHATIC: No anemia, easy bleeding, or history of blood clots. ALLERGIC/IMMUNOLOGIC: No hives or skin allergy. <Anant Godfrey - Last Filed: 01/17/17 20:28> *Physical Exam - Vital Signs Last Vital Signs Temp Pulse Resp BP Pulse Ox 97.5 F L 60 19 149/76 99 01/17/17 18:36 01/17/17 18:36 01/17/17 18:36 01/17/17 18:36 01/17/17 18:36 <Anant Godfrey - Last Filed: 01/17/17 20:28> - Vital Signs Last Vital Signs Temp Pulse Resp BP Pulse Ox 97.5 F L 60 19 149/76 99 01/17/17 18:36 01/17/17 18:36 01/17/17 18:36 01/17/17 18:36 01/17/17 18:36 - Physical Exam Comments: GENERAL: Awake, alert, and fully oriented, in no acute distress HEAD: No signs of trauma EYES: PERRLA, EOMI, sclera anicteric, conjunctiva clear ENT: Auricles normal inspection, hearing grossly normal, nares patent, oropharynx clear without exudates. Moist mucosa NECK: Normal ROM, supple, no lymphadenopathy, JVD, or masses LUNGS: Breath sounds equal, clear to auscultation bilaterally. No wheezes, and no crackles HEART: Regular rate and rhythm, normal S1 and S2, no murmurs, rubs or gallops ABDOMEN: Soft, nontender, normoactive bowel sounds. No guarding, no rebound. No masses EXTREMITIES: Normal range of motion, no edema. No clubbing or cyanosis. No cords, erythema, or tenderness NEUROLOGICAL: Cranial nerves II through XII grossly intact. Normal speech. Motor and sensation intact. SKIN: Warm, Dry, normal turgor, no rashes or lesions noted. SPINE: +Midline tenderness at L5 with small ecchymosis. <Evangelina Willis - Last Filed: 01/21/17 11:46> ED Treatment Course - LABORATORY CBC & Chemistry Diagram: 01/18/17 00:54 01/18/17 00:54 <Evangelina Willis - Last Filed: 01/21/17 11:46> Medical Decision Making - Medical Decision Making 01/17/17 23:07 Pt initially presented with fall, stating she falls at times. However, later, son approached me to explain that she has been feeling unwell, was not comfortable with going home. At this time he said that her glucose was high earlier today and that she has had UTIs in the past. I ordered labs and UA to further evaluate. 01/18/17 02:06 UA shows signs of UTI. Will treat with rocephin and IV fluids. Will reassess. If feeling better in AM, will DC with family. If not, will plan for admission. 01/18/17 06:59 Discussed with son via phone. Patient reports feeling better. She has ambulated in the ED without any difficulty and states she is comfortable with going home. He states he will be able to pick her up around 8am. Will endorse to incoming physician at 7am. Patient will need a BGM prior to eating breakfast, and she uses a home sliding scale to determine insulin dose. <Evangelina Willis - Last Filed: 01/21/17 11:46> *DC/Admit/Observation/Transfer - Attestations Scribe Attestion: 01/17/17 20:27 Documentation prepared by Anant Godfrey, acting as director biomedical engineering for Evangelina Willis MD. <Anant Godfrey - Last Filed: 01/17/17 20:28> - Discharge Dispostion Admit: No <Evangelina Willis - Last Filed: 01/21/17 11:46> Diagnosis at time of Disposition: Urinary tract infection Qualifiers: Urinary tract infection type: site unspecified Hematuria presence: without hematuria Qualified Code(s): N39.0 - Urinary tract infection, site not specified - Discharge Dispostion Disposition: HOME Condition at time of disposition: Improved - Prescriptions Prescriptions: Cephalexin Monohydrate [Keflex -] 500 mg PO BID #14 capsule Ciprofloxacin [Cipro -] 500 mg PO Q12H #14 tablet - Referrals Referrals: Sangeetha Bettencourt MD [Primary Care Provider] - - Patient Instructions Printed Discharge Instructions: DI for Urinary Tract Infection (UTI) Additional Instructions: Activity as tolerated. Stay hydrated. CAT scan and x-ray showed no acute injury from the fall. Blood tests and urine tests showed a urine infection and high blood sugar but no other complications. Take Keflex as prescribed as an antibiotic for the urinary infection. Closely monitor your glucose levels. Continue your medications as previously prescribed by your physician. You should follow up with Dr. Soriano as soon as possible regarding today's emergency department visit. Return to the emergency department for any new or concerning symptoms, particularly persistently elevated sugar levels, fever/chills, abdominal/flank pain or difficulty urinating, weakness or dehydration. - Post Discharge Activity
[2017-01-18 01:06] LABS: BASOPHIL 0.4 % (0-2.0); EOSINOPHIL 0.5 % (0-4.5); MCH 30.6 pg (25.7-33.7); MCHC 33.7 g/dl (32.0-36.0); MEAN CELL VOLUME 90.8 fl (80-96); MEAN PLT VOLUME 8.4 fl (7.5-11.1); NEUTROPHILS 71.6 % (42.8-82.8); PLATELET COUNT 213 K/MM3 (134-434); WHITE BLOOD COUNT 11.8 K/mm3 (4.0-10.0)
[2017-01-18 01:20] LABS: URINE APPEARANCE SLCLOUDY; URINE BILIRUBIN NEGATIVE (NEGATIVE); URINE BLOOD NEGATIVE (NEGATIVE); URINE COLOR YELLOW; URINE GLUCOSE (UA) 2+ (NEGATIVE); URINE KETONE NEGATIVE (NEGATIVE); URINE NITRITE POSITIVE (NEGATIVE); URINE PROTEIN NEGATIVE (NEGATIVE); URINE UROBILINOGEN NEGATIVE mg/dL (0.2-1.0)
[2017-01-18 01:31] LABS: ALBUMIN 3.3 g/dl (3.4-5.0); ANION GAP 9 (8-16); BILIRUBIN,TOTAL 0.6 mg/dL (0.2-1.0); CALCIUM 8.4 mg/dL (8.5-10.1); CO2 28 mmol/L (21-32); CREATININE 1.1 mg/dL (0.55-1.02); GLUCOSE,RANDOM 253 mg/dL (74-106); SGOT/AST 14 U/L (15-37); SGPT/ALT 19 U/L (12-78); TOT PROT 6.4 g/dl (6.4-8.2)
[2017-01-18 01:31] LABS: URINE HYALINE CAST 1 /lpf; URINE MUCUS RARE; URINE RBC 1 /hpf (0-3); URINE WBC 39 /hpf (3-5)
[2017-01-18 01:33] LABS: ALK PHOS 32 U/L (45-117); CPK 139 IU/L (26-192); TROPONIN I < 0.02 ng/ml (0.00-0.05)
[2017-01-18] MEDS ORDERED: CEFTRIAXONE 1 GM in DEXTROSE 5%-WATER - 50 ML IVPB ONE (02:06)
[2017-01-18] MEDS ORDERED: SODIUM CHLORIDE 1,000 ML IV STA (02:06)
[2017-01-18 07:02] VITALS: BP 154/72; PULSE 77
[2017-01-18] MEDS ORDERED: INSULIN (NOVOLOG MIX 70/30) 100 UNITS/ML MDV SQ ONE ×2 (07:33)
--- NOTE | 2017-01-18 07:37 | PDOC ---
*Physical Exam - Vital Signs Last Vital Signs Temp Pulse Resp BP Pulse Ox 97.5 F L 77 18 154/72 95 01/17/17 18:36 01/18/17 07:02 01/18/17 07:02 01/18/17 07:02 01/18/17 07:02 ED Treatment Course - LABORATORY CBC & Chemistry Diagram: 01/18/17 00:54 01/18/17 00:54 - ADDITIONAL ORDERS Additional order review: Laboratory Results 01/18/17 01/18/17 01:09 00:54 Sodium 142 Potassium 4.2 D Chloride 105 Carbon Dioxide 28 Anion Gap 9 BUN 30 H D Creatinine 1.1 H Creat Clearance w eGFR 47.32 Random Glucose 253 H Calcium 8.4 L Total Bilirubin 0.6 AST 14 L D ALT 19 Alkaline Phosphatase 32 L Creatine Kinase 139 Troponin I < 0.02 Total Protein 6.4 Albumin 3.3 L Urine Color Yellow Urine Appearance Slcloudy Urine pH 5.0 Ur Specific [place] 1.018 Urine Protein Negative Urine Glucose (UA) 2+ H Urine Ketones Negative Urine Blood Negative Urine Nitrite Positive Urine Bilirubin Negative Urine Urobilinogen Negative Urine WBC (Auto) 39 Urine RBC (Auto) 1 Ur Epithelial Cells Rare Hyaline Casts 1 Urine Mucus Rare 01/18/17 00:54 RBC 3.79 MCV 90.8 MCHC 33.7 RDW 13.0 MPV 8.4 Neutrophils % 71.6 Lymphocytes % 18.6 Monocytes % 8.9 Eosinophils % 0.5 Basophils % 0.4 - Medications Given in the ED: ED Medications Discontinued Medications Generic Name Dose Route Start Last Admin Trade Name Freq PRN Reason Stop Dose Admin Ceftriaxone Sodium 1 gm/ 50 mls @ 100 mls/hr 01/18/17 02:06 01/18/17 02:14 Dextrose IVPB 01/18/17 02:35 100 mls/hr ONCE ONE Administration Sodium Chloride 1,000 mls @ 1,000 mls/hr 01/18/17 02:06 01/18/17 02:14 Normal Saline - IV 01/18/17 03:05 1,000 mls/hr ASDIR STA Administration Medical Decision Making - Medical Decision Making 01/18/17 07:34 received signout on this 86y/o F diabetic with mechanical fall, workup negative for injury but son reported newly elevated glucose of late. On review of labs, wbc 11.8, Cr baseline 1.1, glucose elevated with normal AG, + UTI. Pt written for discharge on abx. Plan at signout to check morning fingerstick, give insulin according to home SS, and d/c when son arrives. Morning glucose elevated at 300, pt feels well, took her 35u according to her home sliding scale. Provided breakfast, wants to go home. Will proceed with planned d/c when son arrives. *DC/Admit/Observation/Transfer Diagnosis at time of Disposition: Urinary tract infection Qualifiers: Urinary tract infection type: site unspecified Hematuria presence: without hematuria Qualified Code(s): N39.0 - Urinary tract infection, site not specified - Discharge Dispostion Disposition: HOME Condition at time of disposition: Improved - Prescriptions Prescriptions: Cephalexin Monohydrate [Keflex -] 500 mg PO BID #14 capsule - Referrals Referrals: Sangeetha Bettencourt MD [Primary Care Provider] - - Patient Instructions Printed Discharge Instructions: DI for Urinary Tract Infection (UTI) Additional Instructions: Activity as tolerated. Stay hydrated. CAT scan and x-ray showed no acute injury from the fall. Blood tests and urine tests showed a urine infection and high blood sugar but no other complications. Take Keflex as prescribed as an antibiotic for the urinary infection. Closely monitor your glucose levels. Continue your medications as previously prescribed by your physician. You should follow up with Dr. Soriano as soon as possible regarding today's emergency department visit. Return to the emergency department for any new or concerning symptoms, particularly persistently elevated sugar levels, fever/chills, abdominal/flank pain or difficulty urinating, weakness or dehydration. - Post Discharge Activity
--- NOTE | 2017-01-18 10:21 | EKG ---
Test Reason : Blood Pressure : / mmHG Vent. Rate : 060 BPM Atrial Rate : 060 BPM P-R Int : 276 ms QRS Dur : 100 ms QT Int : 540 ms P-R-T Axes : -02 018 030 degrees QTc Int : 540 ms Atrial-paced rhythm with prolonged AV conduction PROLONGED QT ABNORMAL ECG WHEN COMPARED WITH ECG OF 20-MAY-2016 16:01, ELECTRONIC ATRIAL PACEMAKER HAS REPLACED SINUS RHYTHM Confirmed by DARION SIMONS, MAGALY ([id number]) on 01/18/2017 10:21:17 AM Referred By: Confirmed By:MAGALY ORLANDO MD
[2017-01-18 11:46] LABS: URINE LEUK ESTERASE TRACE (NEGATIVE)
--- NOTE | 2017-01-20 08:26 | PDOC ---
Patient Follow-up (Call Back) - Post ED Follow - Up Condition at time of discharge: Improved Disposition at time of original discharge: HOME Reason for Call Back: Abnwl. Microbiology (Prelim shows lactose fermenting negative bacilli and urine culture. Patient was placed on Keflex upon ED discharge which is appropriate coverage for the above. Will await final report.)
--- NOTE | 2017-01-21 07:45 | PDOC ---
Patient Follow-up (Call Back) - Post ED Follow - Up Reason for Call Back: Abnwl. Microbiology (entrobacter on ucx resistent to keflex Spoke to son, pt feeling better, abx changed to bactrim. Son to pick it up today. Told to tell pt to stop the keflex Reasons to return d/w family) - Post ED Follow - Up Condition at time of discharge: Improved Disposition at time of original discharge: HOME
--- NOTE | 2017-01-21 07:50 | PDOC ---
*Physical Exam - Vital Signs Last Vital Signs Temp Pulse Resp BP Pulse Ox 97.5 F L 77 18 154/72 95 01/17/17 18:36 01/18/17 07:02 01/18/17 07:02 01/18/17 07:02 01/18/17 07:02 ED Treatment Course - LABORATORY CBC & Chemistry Diagram: 01/18/17 00:54 01/18/17 00:54 - ADDITIONAL ORDERS Additional order review: 01/18/17 01:09 Urine Culture - Preliminary Urine - Urine Clean Catch Enterobacter Aerogenes Lactose Fermenting Neg Bacilli#2 01/18/17 01/18/17 07:28 00:54 RBC 3.79 MCV 90.8 MCHC 33.7 RDW 13.0 MPV 8.4 Neutrophils % 71.6 Lymphocytes % 18.6 Monocytes % 8.9 Eosinophils % 0.5 Basophils % 0.4 POC Glucometer [phone] - Medications Given in the ED: ED Medications Discontinued Medications Generic Name Dose Route Start Last Admin Trade Name Freq PRN Reason Stop Dose Admin Ceftriaxone Sodium 1 gm/ 50 mls @ 100 mls/hr 01/18/17 02:06 01/18/17 02:14 Dextrose IVPB 01/18/17 02:35 100 mls/hr ONCE ONE Administration Sodium Chloride 1,000 mls @ 1,000 mls/hr 01/18/17 02:06 01/18/17 02:14 Normal Saline - IV 01/18/17 03:05 1,000 mls/hr ASDIR STA Administration Insulin Aspart 35 units 01/18/17 07:33 01/18/17 07:35 Novolog Mix 70/30 Vial SQ 01/18/17 07:34 35 units ONCE ONE Administration *DC/Admit/Observation/Transfer Diagnosis at time of Disposition: Urinary tract infection Qualifiers: Urinary tract infection type: site unspecified Hematuria presence: without hematuria Qualified Code(s): N39.0 - Urinary tract infection, site not specified - Discharge Dispostion Disposition: HOME Condition at time of disposition: Improved - Prescriptions Prescriptions: Cephalexin Monohydrate [Keflex -] 500 mg PO BID #14 capsule Ciprofloxacin [Cipro -] 500 mg PO Q12H #14 tablet - Referrals Referrals: Sangeetha Bettencourt MD [Primary Care Provider] - - Patient Instructions Printed Discharge Instructions: DI for Urinary Tract Infection (UTI) Additional Instructions: Activity as tolerated. Stay hydrated. CAT scan and x-ray showed no acute injury from the fall. Blood tests and urine tests showed a urine infection and high blood sugar but no other complications. Take Keflex as prescribed as an antibiotic for the urinary infection. Closely monitor your glucose levels. Continue your medications as previously prescribed by your physician. You should follow up with Dr. Soriano as soon as possible regarding today's emergency department visit. Return to the emergency department for any new or concerning symptoms, particularly persistently elevated sugar levels, fever/chills, abdominal/flank pain or difficulty urinating, weakness or dehydration. - Post Discharge Activity
== END 2017-01-18 09:20 | disposition home or self-care (01) ==
LOC: JER 18:33
PROC: 3E013VG Introduction of Insulin into Subcutaneous Tissue, Percutaneous Approach (ICD-10-PCS; principal; 2017-01-17)
DX: N39.0 Urinary tract infection, site not specified (principal); E11.65 Type 2 diabetes mellitus with hyperglycemia; W18.39XA Other fall on same level, initial encounter; Y93.89 Activity, other specified; Y92.89 Other specified places as the place of occurrence of the external cause; Y99.8 Other external cause status; I25.10 Atherosclerotic heart disease of native coronary artery without angina pectoris; I11.0 Hypertensive heart disease with heart failure; E78.00 Pure hypercholesterolemia, unspecified; Z79.4 Long term (current) use of insulin; M25.511 Pain in right shoulder; G89.29 Other chronic pain
CPT/HCPCS: 36415; 70450-TC; 72125-TC; 72131-TC; 80053; 81003; 81015; 82550; 84484; 85025; 87086; 87186; 93005; 93010; 99283-25

== ENCOUNTER 2018-08-19 13:05 | Inpatient (IN) | payer BC, OTHER ==
--- NOTE | 2018-08-19 13:18 | PDOC ---
History of Present Illness - General Chief Complaint: Syncope/Near Syncope Stated Complaint: SYNCOPE Time Seen by Provider: 08/19/18 13:18 History Source: Patient, Family Exam Limitations: Clinical Condition - History of Present Illness Initial Comments: 08/19/18 13:37 88 year old female with PMH HTN, CHF, pacer, paroxysmal atrial fibrillation on Eliquis, TIA, UTIs on daily Ceftriaxone 250 mg, hypothyroidism presented to ED with Son for fever/nausea/vomiting associated with urinary incontinence today. Son reported pt went with her other son out of town yesterday, was alert and oriented with no symptoms. Son reported today he noticed his mother was more tired than usual, then had urinary incontinence today and he wanted to bring her to the ED, but patient refused. Later in the day patient began to have nausea/vomiting, then looked generally weak and as if she was going to faint, which prompted him to bring the patient to the ED. Past History - Past Medical History Allergies/Adverse Reactions: Allergies Allergy/AdvReac Type Severity Reaction Status Date / Time Sulfa (Sulfonamide Allergy Severe Swelling Verified 08/19/18 13:11 Antibiotics) lisinopril Allergy Intermediate Verified 08/19/18 16:59 Home Medications: Ambulatory Orders Amiodarone HCl 100 mg PO DAILY 08/19/18 Apixaban [Eliquis -] 2.5 mg PO BID 08/19/18 Atorvastatin Ca [Lipitor] 10 mg PO HS 08/19/18 B12/Levomefolate Calcium/B-6 [Folbic Rf Tablet] 1 each PO DAILY 08/19/18 Biotin 5,000 mcg PO HS 08/19/18 Cephalexin [Keflex] 250 mg PO DAILY 08/19/18 Furosemide [Lasix -] 40 mg PO DAILY 08/19/18 Insulin Lispro Protamin/Lispro [Humalog Mix 75-25 Kwikpen] 100 unit SQ ACHS Insulin Lispro [Humalog] 100 unit SQ ASDIR 08/19/18 Lactobacillus Acidophilus [Acidophilus] 1 each PO DAILY 08/19/18 Levothyroxine [Synthroid -] 50 mcg PO DAILY 08/19/18 Metoprolol Succinate 100 mg PO DAILY 08/19/18 Metoprolol Succinate [Toprol Xl -] 50 mg PO HS 08/19/18 Polyethylene Glycol [Polyox Wsr-301] 1 gm MC DAILY 08/19/18 Potassium Chloride [K-Dur -] 10 meq PO BID 08/19/18 Tamoxifen Citrate 20 mg PO DAILY 08/19/18 Anemia: No Asthma: No Cancer: Yes (LEFT BREAST lumpectomy) Cardiac Disorders: Yes (a fib) CVA: No COPD: No CHF: No Dementia: No Diabetes: Yes GI Disorders: No Disorders: Yes (HX BLADDER INFECTIONS IN PAST) HTN: Yes Hypercholesterolemia: Yes Liver Disease: No Seizures: No Thyroid Disease: Yes - Surgical History Abdominal Surgery: No Appendectomy: No Cardiac Surgery: No Cholecystectomy: No Lung Surgery: No Neurologic Surgery: No Orthopedic Surgery: No - Immunization History Immunization Up to Date: Yes (FLU AND PNA VARICELLA) - Suicide/Smoking/Psychosocial Hx Smoking Status: No Smoking History: Never smoked Have you smoked in the past 12 months: No Number of Cigarettes Smoked Daily: 0 Hx Alcohol Use: No Drug/Substance Use Hx: No Substance Use Type: None Hx Substance Use Treatment: No Review of Systems - Review of Systems Able to Perform ROS?: Yes Comments:: 08/19/18 13:44 General: denied fever, chills, generalized weakness. HEENT: denied sore throat, rhinorrhea, ear pain. Heart: admitted to presyncope. denied chest pain, palpitations, syncope, diaphoresis. Respiratory: denied shortness of breath, cough, sputum production, hemoptysis. Abdomen: admitted to nausea, vomiting. denied abdominal pain, diarrhea, constipation, blood in stool. : admitted to urinary incontinence. denied dysuria, increased urinary frequency, hematuria, flank pain. Back: denied back pain. Musculoskeletal: denied joint pain, muscle pain, joint swelling. Neurological: denied headache, dizziness, numbness, tingling, weakness. Skin: denied rash, laceration, abrasion. *Physical Exam - Vital Signs Last Vital Signs Temp Pulse Resp BP Pulse Ox 102.7 F H 60 16 188/60 H 90 L 08/19/18 13:08/19/18 13:08/19/18 13:08/19/18 13:08/19/18 13:06 - Physical Exam Comments: 08/19/18 13:45 Constitutional: Well-nourished, Well-developed, appearing stated age. HEENT: head is normocephalic, atraumatic. EOMI. PERRLA. Neck: supple. Full ROM. Heart: regular rhythm. no murmurs, rubs or gallops. Chest: pacer to right anterior chest wall. Lungs: poor inspiratory effort. clear to auscultation bilaterally. no crackles, rhonchi or wheezing. no stridor. Abdomen: soft, nontender, flat. normal bowel sounds. no rebound, guarding, masses. Extremities: peripheral pulses intact. no lower extremity edema. Neurological: CN 2-12 grossly intact. moves all four extremities. right lip facial droop. Psych: awake, somnolent but arousable to voice. oriented to person and place. intermittently follows commands. ED Treatment Course - LABORATORY CBC & Chemistry Diagram: 08/19/18 13:35 08/20/18 06:21 Medical Decision Making - Medical Decision Making 08/19/18 13:46 88 year old female with above PMH presented to ED for nausea/vomiting, fever, urinary incontinence, general weakness. Initial Vital Signs Temp Pulse Resp BP Pulse Ox 102.7 F H 60 16 188/60 H 90 L 08/19/18 13:06 08/19/18 13:06 08/19/18 13:06 08/19/18 13:06 08/19/18 13:06 Febrile. Hypertensive. No tachycardia. No tachypnea. Hypoxia on room air at triage. Currently 93% on room air. Labs ordered: CBC, CMP, UA/UC, blood cultures, troponin, TSH Imaging ordered: CXR Medications ordered: pepcid 20 mg IV once, zofran 4 mg IV once, normal saline bolus 1000 cc X2, tylenol IV EKG performed at: 1311: rate 80, regular rhythm, normal axis, CO 272 1st degree AV block, QTc 590, no acute ST changes. Laboratory Results - last 24 hr 08/19/18 08/19/18 13:35 13:42 VBG pH 7.42 H POC VBG pCO2 36.6 L POC VBG pO2 48.2 H VBG HCO3 23.5 VBG O2 Sat (Areli) 82.4 H VBG Base Excess -0.1 POC Glucometer 222 No hypoglycemia. No acidosis. Respiratory alkalosis. 08/19/18 14:31 CBC WBC 7.1 K/mm3 (4.0-10.0) 08/19/18 13:35 RBC 4.16 M/mm3 (3.60-5.2) 08/19/18 13:35 Hgb 12.4 GM/dL (10.7-15.3) 08/19/18 13:35 Hct 36.7 % (32.4-45.2) 08/19/18 13:35 MCV 88.1 fl (80-96) 08/19/18 13:35 MCH 29.8 pg (25.7-33.7) 08/19/18 13:35 MCHC 33.8 g/dl (32.0-36.0) 08/19/18 13:35 RDW 14.0 % (11.6-15.6) 08/19/18 13:35 Plt Count 224 K/MM3 (134-434) 08/19/18 13:35 MPV 8.0 fl (7.5-11.1) 08/19/18 13:35 Absolute Neuts (auto) 6.0 K/mm3 (1.5-8.0) 08/19/18 13:35 Neutrophils % 84.7 % (42.8-82.8) H 08/19/18 13:35 Lymphocytes % 6.8 % (8-40) L D 08/19/18 13:35 Monocytes % 7.8 % (3.8-10.2) 08/19/18 13:35 Eosinophils % 0.0 % (0-4.5) D 08/19/18 13:35 Basophils % 0.7 % (0-2.0) 08/19/18 13:35 Nucleated RBC % 0 % (0-0) 08/19/18 13:35 No leukocytosis. Mild left shift. No anemia CMP Sodium 139 mmol/L (136-145) 08/19/18 13:35 Potassium 3.7 mmol/L (3.5-5.1) 08/19/18 13:35 Chloride 105 mmol/L (98-107) 08/19/18 13:35 Carbon Dioxide 25 mmol/L (21-32) 08/19/18 13:35 Anion Gap 9 MMOL/L (8-16) 08/19/18 13:35 BUN 30.4 mg/dL (7-18) H 08/19/18 13:35 Creatinine 1.3 mg/dL (0.55-1.3) 08/19/18 13:35 Est GFR (CKD-EPI)AfAm 43.02 08/19/18 13:35 Est GFR (CKD-EPI)NonAf 37.12 08/19/18 13:35 POC Glucometer 222 UNITS (80-120) 08/19/18 13:42 Random Glucose 217 mg/dL (74-106) H 08/19/18 13:35 Lactic Acid 2.7 mmol/L (0.4-2.0) H* 08/19/18 13:35 Calcium 8.6 mg/dL (8.5-10.1) 08/19/18 13:35 Magnesium 2.2 mg/dL (1.8-2.4) 08/19/18 13:35 Total Bilirubin 0.6 mg/dL (0.2-1) 08/19/18 13:35 AST 17 U/L (15-37) 08/19/18 13:35 ALT 22 U/L (13-61) 08/19/18 13:35 Alkaline Phosphatase 38 U/L (45-117) L 08/19/18 13:35 Troponin I 0.02 ng/ml (0.00-0.05) 08/19/18 13:35 Total Protein 7.0 g/dl (6.4-8.2) 08/19/18 13:35 Albumin 3.4 g/dl (3.4-5.0) 08/19/18 13:35 TSH 1.64 uIU/ml (0.358-3.74) 08/19/18 13:35 No electrolyte abnormalities. No FRANDY. Hyperglycemia. No anion gap. Lactic acidosis - pt is receiving IV fluids. No transaminitis. Troponin wnl TSH wnl 08/19/18 14:34 Bedside bladder US showed 180cc post void residual. Diaz ordered for retention. 08/19/18 15:18 Urine Test Results Urine Color Yellow 08/19/18 14:00 Urine Appearance Clear 08/19/18 14:00 Urine pH 5.0 (5.0-8.0) 08/19/18 14:00 Ur Specific Alpha 1.009 (1.010-1.035) L 08/19/18 14:00 Urine Protein Trace (NEGATIVE) 08/19/18 14:00 Urine Glucose (UA) Negative (NEGATIVE) 08/19/18 14:00 Urine Ketones Negative (NEGATIVE) 08/19/18 14:00 Urine Blood Trace (NEGATIVE) 08/19/18 14:00 Urine Nitrite Positive (NEGATIVE) H 08/19/18 14:00 Urine Bilirubin Negative (NEGATIVE) 08/19/18 14:00 Ur Leukocyte Esterase 1+ (NEGATIVE) H 08/19/18 14:00 WBC>5 Pt has UTI - likely causing AMS. Admitting diagnoses: UTI, Altered Mental Status, Lactic acidosis, Urinary Retention PCP paged. 08/19/18 17:09 Pt to be admitted to Dr. Xie. I spoke with him about the patient. Vital Signs Temperature 99.8 F H 08/19/18 16:56 Pulse Rate 107 H 08/19/18 16:56 Respiratory Rate 17 08/19/18 16:56 Blood Pressure 111/57 L 08/19/18 16:56 O2 Sat by Pulse Oximetry (%) 100 08/19/18 16:56 Fever improving with Tylenol/fluid hydration. Tachycardia. Mild hypotension. No hypoxia on room air. No tachypnea. 08/19/18 18:28 Repeat Lactate 1.8 -Responsive to fluid hydration *DC/Admit/Observation/Transfer Diagnosis at time of Disposition: UTI (urinary tract infection), Urinary retention - Discharge Dispostion Condition at time of disposition: Stable Decision to Admit order: Yes - Referrals - Patient Instructions - Post Discharge Activity
[2018-08-19] MEDS ORDERED: SODIUM CHLORIDE 1,000 ML IV STA ×2 (13:19→15:21)
[2018-08-19] MEDS ORDERED: ACETAMINOPHEN 1000 MG/100 ML VIAL (NON FORMULARY) IVPB ONE (13:19)
[2018-08-19] MEDS ORDERED: ONDANSETRON 4 MG/2 ML VIAL IVPUSH ONE (13:20)
[2018-08-19] MEDS ORDERED: FAMOTIDINE 20 MG/50 ML IVPB 20 MG/50 ML MG IVPB ONE ×2 (13:20→14:02)
[2018-08-19 13:43] LABS: VENOUS PC02 36.6 mmHg (41-51); VENOUS PH 7.42 (7.31-7.41); VENOUS PO2 48.2 mmHg (30-40)
[2018-08-19 13:49] LABS: BASO % 0.7 % (0-2.0); HEMATOCRIT 36.7 % (32.4-45.2); HEMOGLOBIN 12.4 GM/dL (10.7-15.3); LYMPH % 6.8 % (8-40); MCH 29.8 pg (25.7-33.7); MCHC 33.8 g/dl (32.0-36.0); MEAN CELL VOLUME 88.1 fl (80-96); MONO % 7.8 % (3.8-10.2); NEUT % 84.7 % (42.8-82.8); RBC 4.16 M/mm3 (3.60-5.2); WHITE BLOOD COUNT 7.1 K/mm3 (4.0-10.0)
[2018-08-19 13:58] LABS: PLATELET COUNT 224 K/MM3 (134-434)
[2018-08-19 14:02] LABS: ALBUMIN 3.4 g/dl (3.4-5.0); BILIRUBIN,TOTAL 0.6 mg/dL (0.2-1); BLOOD UREA NITROGEN 30.4 mg/dL (7-18); CALCIUM 8.6 mg/dL (8.5-10.1); CREATININE 1.3 mg/dL (0.55-1.3); POTASSIUM 3.7 mmol/L (3.5-5.1)
[2018-08-19] MEDS ORDERED: ONDANSETRON 4 MG/2 ML VIAL ONE (14:02)
[2018-08-19] MEDS ORDERED: ACETAMINOPHEN INJECTION 100 ML IVPB ONE (14:02)
[2018-08-19 14:03] LABS: INR 1.07 (0.83-1.09); PROTHROMBIN TIME (PATIENT) 12.6 SEC (9.7-13.0)
[2018-08-19 14:05] LABS: ACTIVATED PTT 29.3 SECONDS (25.2-36.5)
[2018-08-19 14:11] LABS: MAGNESIUM 2.2 mg/dL (1.8-2.4)
--- NOTE | 2018-08-19 14:11 | PDOC ---
Documentation entered by Rakesh Ramirez SCRIBE, acting as scribe for Dian Arrington DO. Dian Arrington DO: This documentation has been prepared by the Ashley turner Elijah, SCRIBE, under my direction and personally reviewed by me in its entirety. I confirm that the documentation accurately reflects all work, treatment, procedures, and medical decision making performed by me. Attending Attestation - Resident Resident Name: Cindy Magdaleno - ED Attending Attestation I have performed the following: I have examined & evaluated the patient, The case was reviewed & discussed with the resident, I agree w/resident's findings & plan - HPI HPI: 08/19/18 14:02 The patient is an 88 year old female with a significant past medical history of afib (Eliquis), HTN, HLD, dCHF, DM and recurrent UTI who presents to the ED with nausea, vomiting, fever and urinary incontinence. As per son at bedside, the patient was fine yesterday, but woke up today feeling more tired than usual. The Patient urinary incontinence occured first but the nausea and vomiting is what prompted the visit to the ED. Denies: SOB Allergies: Sulfonamide Antibiotics, Lisinopril - Physicial Exam PE: 08/19/18 14:02 GENERAL: Awake, alert, and fully oriented, in no acute distress HEAD: No signs of trauma EYES: PERRLA, EOMI, sclera anicteric, conjunctiva clear ENT: +Dry Mucosa. Auricles normal inspection, hearing grossly normal, nares patent, oropharynx clear without exudates. NECK: Normal ROM, supple, no lymphadenopathy, JVD, or masses LUNGS: +Crackles at bilateral bases. No wheezes HEART: Regular rate and rhythm, normal S1 and S2, no murmurs, rubs or gallops ABDOMEN: Soft, nontender, normoactive bowel sounds. No guarding, no rebound. No masses EXTREMITIES: Normal range of motion, no edema. No clubbing or cyanosis. No cords, erythema, or tenderness NEUROLOGICAL: Cranial nerves II through XII grossly intact. Normal speech, normal gait SKIN:+Redness under panis fold. Warm, Dry, normal turgor, no rashes or lesions noted. - Critical Care Time Total Critical Care Time: 35 Critical Care Statement: The care of this patient involved high complexity decision making to prevent further life threatening deterioration of the patient 's condition and/or to evaluate & treat vital organ system(s) failure or risk of failure. - Medical Decision Making 08/19/18 14:10 I, Dr. Dian Arrington, DO, attest that this document has been prepared under my direction and personally reviewed by me in its entirety. I further attest, that it accurately reflects all work, treatment, procedures and medical decision -making performed by me. 08/19/18 14:10 a/p: 88yo female with a fever, n/v x 1 episode and urinary incontinence today -pt arrives with a fever of 102 -denies cough, but coarse bs -abd is soft -candidal infection to groin -will send labs, cxr, cultures, straight cath for urine -tongue is dry and cracked -will start ivf hydration -no rashes -will monitor and reassess -pt is aaox3 08/19/18 16:11 pt with uti abx ordered 08/19/18 16:11 resident discussed the case and the patient was admitted to dr. Baron Heart Score/ECG Review - ECG Intrepretation Comment:: 08/19/18 14:11 a paced at 80
[2018-08-19] MEDS: NYSTATIN 100,000 UNIT/GM TOPICAL CREAM 15 GM TUBE TP SCH ×2 (15:00→22:57)
[2018-08-19 15:13] LABS: EPI CELLS 0.3 /HPF (0-5/HPF); HYALINE CASTS 1 /lpf (0-8); URINE APPEARANCE CLEAR; URINE BACTERIA 4806.6 /hpf (NEGATIVE); URINE BILIRUBIN NEGATIVE (NEGATIVE); URINE COLOR YELLOW; URINE GLUCOSE (UA) NEGATIVE (NEGATIVE); URINE KETONE NEGATIVE (NEGATIVE); URINE LEUK ESTERASE 1+ (NEGATIVE); URINE NITRITE POSITIVE (NEGATIVE); URINE PROTEIN TRACE (NEGATIVE); URINE RBC 1 /hpf (0-4); URINE UROBILINOGEN 0.2 mg/dL (0.2-1.0); URINE WBC 47 /hpf (0-5)
[2018-08-19] MEDS ORDERED: CEFTRIAXONE 1 GM in DEXTROSE 5%-WATER - 100 ML IVPB ONE (15:17)
[2018-08-19] MEDS ORDERED: CEFTRIAXONE 1 GM/50 ML BAG ONE (15:56)
--- NOTE | 2018-08-19 17:16 | HP ---
Admitting History and Physical - Primary Care Physician PCP: Sangeetha Bettencourt - Admission Chief Complaint: feeling week History of Present Illness: 88 year old female with PMH HTN, CHF, pacer, paroxysmal atrial fibrillation on Eliquis, TIA, UTIs on daily Ceftriaxone 250 mg, hypothyroidism presented to ED with Son for fever/nausea/vomiting associated with urinary incontinence today. Son reported pt went with her other son out of town yesterday, was alert and oriented with no symptoms. Son reported today he noticed his mother was more tired than usual, then had urinary incontinence today and he wanted to bring her to the ED, but patient refused. she also have nausea/vomiting, which prompted him to bring the patient to the ED.Seen in ER and she has received abx and she is much better and alert and awake . Limitations to Obtaining History: No Limitations - Past Medical History Cardiovascular: Yes: AFIB, CAD, HTN, Hyperlipdemia Renal/: Yes: UTI, Other (urinary frequency and urgency ) Heme/Onc: Yes: Other (h/o breast cancer left) Infectious Disease: Yes: Other (recurrent UTI) Endocrine: Yes: Diabetes Mellitus (insulin dependent), Hypothyroidism Dermatology: Yes: Squamous Cell (s/p excision 5 days ago) - Smoking History Smoking history: Never smoked Have you smoked in the past 12 months: No Aproximately how many cigarettes per day: 0 - Alcohol/Substance Use Hx Alcohol Use: No - Social History ADL: Independent (uses cane and walker has had h/o frequent falls.) History of Recent Travel: No Home Medications - Allergies Allergies/Adverse Reactions: Allergies Allergy/AdvReac Type Severity Reaction Status Date / Time Sulfa (Sulfonamide Allergy Severe Swelling Verified 08/19/18 13:11 Antibiotics) lisinopril Allergy Intermediate Verified 08/19/18 16:59 - Home Medications Home Medications: Ambulatory Orders Amiodarone HCl 100 mg PO DAILY 08/19/18 Apixaban [Eliquis -] 2.5 mg PO BID 08/19/18 Atorvastatin Ca [Lipitor] 10 mg PO HS 08/19/18 B12/Levomefolate Calcium/B-6 [Folbic Rf Tablet] 1 each PO DAILY 08/19/18 Biotin 5,000 mcg PO HS 08/19/18 Cephalexin [Keflex] 250 mg PO DAILY 08/19/18 Furosemide [Lasix -] 40 mg PO DAILY 08/19/18 Insulin Lispro Protamin/Lispro [Humalog Mix 75-25 Kwikpen] 100 unit SQ ACHS Insulin Lispro [Humalog] 100 unit SQ ASDIR 08/19/18 Lactobacillus Acidophilus [Acidophilus] 1 each PO DAILY 08/19/18 Levothyroxine [Synthroid -] 50 mcg PO DAILY 08/19/18 Metoprolol Succinate 100 mg PO DAILY 08/19/18 Metoprolol Succinate [Toprol Xl -] 50 mg PO HS 08/19/18 Polyethylene Glycol [Polyox Wsr-301] 1 gm MC DAILY 08/19/18 Potassium Chloride [K-Dur -] 10 meq PO BID 08/19/18 Tamoxifen Citrate 20 mg PO DAILY 08/19/18 Family Disease History - Family Disease History Family History: Denies Review of Systems - Review of Systems Constitutional: reports: Chills Eyes: reports: No Symptoms HENT: reports: No Symptoms Neck: reports: No Symptoms Cardiovascular: reports: No Symptoms Respiratory: reports: No Symptoms Gastrointestinal: reports: No Symptoms Genitourinary: reports: Dysuria Musculoskeletal: reports: No Symptoms Integumentary: reports: No Symptoms Neurological: reports: No Symptoms Endocrine: reports: No Symptoms Hematology/Lymphatic: reports: No Symptoms Psychiatric: reports: No Symptoms Physical Examination Vital Signs: Vital Signs Temperature 99.8 F H 08/19/18 16:56 Pulse Rate 107 H 08/19/18 16:56 Respiratory Rate 17 08/19/18 16:56 Blood Pressure 111/57 L 08/19/18 16:56 O2 Sat by Pulse Oximetry (%) 100 08/19/18 16:56 Constitutional: Yes: Well Nourished, No Distress Eyes: Yes: WNL HENT: Yes: Atraumatic Neck: Yes: WNL Cardiovascular: Yes: WNL, Pulse Irregular Respiratory: Yes: WNL Gastrointestinal: Yes: Normal Bowel Sounds, Soft, Abdomen, Obese Musculoskeletal: Yes: WNL Extremities: Yes: WNL Neurological: Yes: WNL, Alert, Oriented Labs: CBC, BMP 08/19/18 13:35 08/19/18 13:35 Imaging - Results Chest X-ray: Report Reviewed X-ray: Report Reviewed Ultrasound: Report Reviewed Problem List - Problems (1) Urinary tract infection Assessment/Plan: start on abx rocephin and she has received one dose in Er already. Code(s): N39.0 - URINARY TRACT INFECTION, SITE NOT SPECIFIED (2) Arrhythmia Assessment/Plan: started on amiodarone and toprol and elequis bid Code(s): I49.9 - CARDIAC ARRHYTHMIA, UNSPECIFIED (3) Diabetes mellitus Assessment/Plan: insulin coverage, start on regular dose of 70/30 and advised to continue the meds Code(s): E11.9 - TYPE 2 DIABETES MELLITUS WITHOUT COMPLICATIONS (4) Hypertension Assessment/Plan: stable continue cozar and toprol Code(s): I10 - ESSENTIAL (PRIMARY) HYPERTENSION (5) Hypokalemia Code(s): E87.6 - HYPOKALEMIA (6) Hypothyroidism Assessment/Plan: continue potasium Code(s): E03.9 - HYPOTHYROIDISM, UNSPECIFIED
[2018-08-19] MEDS: GABAPENTIN 100 MG CAPSULE (FP) PO SCH (21:27)
[2018-08-19] MEDS: ATORVASTATIN CA 10 MG TABLET (FP) PO SCH (21:27)
[2018-08-19] MEDS: APIXABAN 2.5 MG TABLET PO SCH (21:27)
[2018-08-19] MEDS: POTASSIUM CHLORIDE TABS 10 MEQ TABLET.ER (FP) PO SCH (21:28)
[2018-08-19] MEDS: ACETAMINOPHEN 325 MG TABLET (FP) PO PRN (21:28)
[2018-08-19] MEDS: INSULIN SLIDING SCALE (NOVOLOG) 1 VIAL SQ SCH (21:43)
[2018-08-19] MEDS ORDERED: PATIENT'S OWN MEDICATION (NON-FORMULARY) (Biotin [Biotin] 5,000 MCG) PO SCH (22:00)
[2018-08-20] MEDS: ACETAMINOPHEN 325 MG TABLET (FP) PO PRN ×3 (05:40→22:02)
[2018-08-20] MEDS: LEVOTHYROXINE NA 50 MCG TABLET (FP) PO SCH (06:34)
[2018-08-20] MEDS: INSULIN (NOVOLOG MIX 70/30) 100 UNITS/ML MDV SQ SCH ×2 (06:35→17:33)
[2018-08-20] MEDS: INSULIN SLIDING SCALE (NOVOLOG) 1 VIAL SQ SCH ×4 (06:36→22:09)
[2018-08-20 08:41] LABS: BLOOD UREA NITROGEN 25.7 mg/dL (7-18); CALCIUM 7.8 mg/dL (8.5-10.1); CREATININE 1.2 mg/dL (0.55-1.3); POTASSIUM 3.9 mmol/L (3.5-5.1)
[2018-08-20] MEDS ORDERED: FUROSEMIDE 40 MG TABLET (FP) PO SCH (10:00)
[2018-08-20] MEDS ORDERED: PATIENT'S OWN MEDICATION (NON-FORMULARY) (Polyethylene Glycol [Polyox Wsr-301] 1 GM) MC SCH (10:00)
[2018-08-20] MEDS ORDERED: INSULIN (NOVOLOG) ASPART 100 UNITS/ML 10ML VIAL ONE (10:37)
[2018-08-20] MEDS ORDERED: DEXTROSE 5%-WATER - 50 ML IVPB ONE (10:38)
[2018-08-20] MEDS ORDERED: cefTRIAXone SODIUM 1 GM VIAL ONE (10:38)
[2018-08-20] MEDS: APIXABAN 2.5 MG TABLET PO SCH ×2 (11:00→22:01)
[2018-08-20] MEDS: LACTOBACILLUS ACIDOPHILUS 1 TABLET PO SCH (11:00)
[2018-08-20] MEDS: NYSTATIN 100,000 UNIT/GM TOPICAL CREAM 15 GM TUBE TP SCH ×2 (11:00→22:08)
[2018-08-20] MEDS: CEFTRIAXONE 1 GM in DEXTROSE 5%-WATER - 50 ML IVPB SCH (11:01)
[2018-08-20] MEDS: POTASSIUM CHLORIDE TABS 10 MEQ TABLET.ER (FP) PO SCH ×2 (11:01→22:01)
[2018-08-20] MEDS: LOSARTAN POTASSIUM 25 MG TABLET PO SCH (11:01)
[2018-08-20] MEDS ORDERED: PT OWN MED DRAWER 7, Y5N ONE (12:28)
[2018-08-20] MEDS ORDERED: FUROSEMIDE 40 MG/4 ML INJECTABLE VIAL IVPB ONE (13:10)
--- NOTE | 2018-08-20 13:12 | RAPID ---
Physical Examination Vital Signs: Vital Signs Temperature 97.9 F 08/20/18 11:00 Pulse Rate 62 08/20/18 11:00 Respiratory Rate 18 08/20/18 11:00 Blood Pressure 149/67 08/20/18 11:00 O2 Sat by Pulse Oximetry (%) 98 08/20/18 06:51 Findings/Remarks: RR called for hypoxia. Patient found to be 50%. Nasal cannula increased up to 6L and oxygen went up to 75%. Patient sounds overloaded, received fluids in ED, hx CHF. Lasix ordered. Patient placed on Venti Mask Vitals: 106/51. 68, 91% Assesment: crackles heard over lung gabriel, patient using accessory muscles Plan - CXR: congested - ABG: low O2, will continue supplemental oxygen through Ventimask - lasix 40 IV push - We will discuss with PCP Labs: CBC, BMP 08/19/18 13:35 08/20/18 06:21
[2018-08-20] MEDS ORDERED: FUROSEMIDE 40 MG/4 ML INJECTABLE VIAL ONE (13:13)
[2018-08-20] MEDS ORDERED: FUROSEMIDE 40 MG/4 ML INJECTABLE VIAL IVPUSH ONE (13:26)
[2018-08-20 13:27] LABS: ARTERIAL BLD GAS O2 SATURATION 81.5 % (95-98); ARTERIAL BLOOD GAS BASE EXCESS -3.9 meq/l (-2-2); ARTERIAL BLOOD GAS PCO2 37.6 mmHg (35-45); ARTERIAL BLOOD GAS PO2 50.2 mmHg (80-105); ARTERIAL BLOOD GAS pH 7.36 (7.35-7.45)
[2018-08-20 13:29] LABS: ALLENS TEST POSITIVE
[2018-08-20] MEDS: AMIODARONE HCL 200 MG TABLET (FP) PO SCH (13:38)
--- NOTE | 2018-08-20 14:17 | PN ---
Progress Note, Physician Chief Complaint: she is f/u for uti and suddenly she has developed the shortness of breath and rapid response was called and she was found to have hypxemic on examination by hospitalist she has lung congested and started on lasix and she is much improved. she is still on 100 percent VM. she also vomited all the contents including her medications. - Current Medication List Current Medications: Active Medications Acetaminophen (Tylenol -) 650 mg PO Q6H PRN PRN Reason: PAIN Last Admin: 08/20/18 13:41 Dose: 650 mg Amiodarone HCl (Cordarone -) 100 mg PO DAILY [facility] Last Admin: 08/20/18 13:38 Dose: 100 mg Apixaban (Eliquis -) 2.5 mg PO BID [facility] Last Admin: 08/20/18 11:00 Dose: 2.5 mg Atorvastatin Calcium (Lipitor -) 10 mg PO HS [facility] Last Admin: 08/19/18 21:27 Dose: 10 mg Furosemide (Lasix -) 40 mg PO DAILY [facility] Last Admin: 08/20/18 11:01 Dose: 40 mg Gabapentin (Neurontin -) 100 mg PO HS [facility] Last Admin: 08/19/18 21:27 Dose: 100 mg Ceftriaxone Sodium 1 gm/ (Dextrose) 50 mls @ 100 mls/hr IVPB DAILY [facility]; Protocol Last Admin: 08/20/18 11:01 Dose: 100 mls/hr Insulin Aspart (Novolog Mix 70/30 Vial) 40 units SQ BIDAC [facility] Last Admin: 08/20/18 06:35 Dose: 40 units Insulin Aspart (Novolog Vial Sliding Scale -) 1 vial SQ ACHS [facility]; Protocol Last Admin: 08/20/18 11:08 Dose: Not Given Lactobacillus Acidophilus (Bacid -) 1 tab PO DAILY [facility] Last Admin: 08/20/18 11:00 Dose: 1 tab Levothyroxine Sodium (Synthroid -) 50 mcg PO DAILY@0700 [facility] Last Admin: 08/20/18 06:34 Dose: 50 mcg Losartan Potassium (Cozaar -) 25 mg PO DAILY [facility] Last Admin: 08/20/18 11:01 Dose: 25 mg Metoprolol Succinate (Toprol Xl -) 50 mg PO [facility] Last Admin: 08/19/18 21:27 Dose: 50 mg Non-Formulary Medication (B12/Levomefolate Calcium/B-6 [Folbic Rf Tablet]) 1 each PO DAILY [facility] Non-Formulary Medication (Biotin [Biotin]) 5,000 mcg PO HS [facility] Non-Formulary Medication (Polyethylene Glycol [Polyox Wsr-301]) 1 gm MC DAILY [facility] Nystatin (Mycostatin Cream -) 1 applic TP BID [facility] Last Admin: 08/20/18 11:00 Dose: 1 applic Potassium Chloride (K-Dur -) 10 meq PO BID [facility] Last Admin: 08/20/18 11:01 Dose: 10 meq - Objective Vital Signs: Vital Signs Temperature 102.4 F H 08/20/18 13:05 Pulse Rate 90 08/20/18 13:20 Respiratory Rate 32 H 08/20/18 13:20 Blood Pressure 157/73 08/20/18 13:20 O2 Sat by Pulse Oximetry (%) 98 08/20/18 06:51 Constitutional: Yes: Anxious, Moderate Distress Eyes: Yes: Conjunctiva Clear Neck: Yes: Trachea Midline Respiratory: Yes: Rales, Rhonchi Gastrointestinal: Yes: Normal Bowel Sounds, Soft Musculoskeletal: Yes: WNL Neurological: Yes: WNL, Alert, Oriented Labs: CBC, BMP 08/19/18 13:35 08/20/18 06:21 INR, PTT INR 1.07 (0.83-1.09) 08/19/18 13:35 Problem List - Problems (1) Urinary tract infection Assessment/Plan: start on abx rocephin and she has received one dose in Er already. Code(s): N39.0 - URINARY TRACT INFECTION, SITE NOT SPECIFIED (2) Arrhythmia Assessment/Plan: started on amiodarone and toprol and elequis bid Code(s): I49.9 - CARDIAC ARRHYTHMIA, UNSPECIFIED (3) Diabetes mellitus Assessment/Plan: insulin coverage, start on regular dose of 70/30 and advised to continue the meds Code(s): E11.9 - TYPE 2 DIABETES MELLITUS WITHOUT COMPLICATIONS (4) Hypertension Assessment/Plan: stable continue cozar and toprol Code(s): I10 - ESSENTIAL (PRIMARY) HYPERTENSION (5) Hypokalemia Code(s): E87.6 - HYPOKALEMIA (6) Hypothyroidism Assessment/Plan: continue potasium Code(s): E03.9 - HYPOTHYROIDISM, UNSPECIFIED Assessment/Plan A/p acute distress and hypoxemia she is given iv lasix will start on daily lasix iv laborer laboratory evaluation no iv fluids and continue abx will add zithromax vomiting will add zofran prn for nausea and vomiting
[2018-08-20] MEDS ORDERED: ONDANSETRON 4 MG/2 ML VIAL IVPUSH PRN (14:19)
[2018-08-20] MEDS: AZITHROMYCIN IVPB 500 MG/250 ML BAG IVPB SCH (16:11)
--- NOTE | 2018-08-20 17:39 | CONSULT ---
Consult - text type - Consultation Consultation Note: Brief CCM note for request of ICU admission CC: shortness of breath HPI:Briefly 88 year old female with PMH HTN, CHF, pacer, paroxysmal atrial fibrillation on Eliquis, TIA, UTIs on daily Ceftriaxone 250 mg, hypothyroidism admitted for urosepsis via ED, given multiple L of IVF and broad spectrum abx. ASSET [employer]AD called today for increased WOB and increase O2 requirement NC--> venti. Crackles on physical exam and pulm edema on chest imaging. Given PO and IV lasix Pt seen on floor. Temp 99 BP 160/90, HR 100, RR 24 Spo2 98on NRB, mild dyspnea no chest pain Heent: + jvd Pulm: diffuse crackles R> L CV: trachy irreg ABD: soft, NT, ND EXT 2+ edema dependent in LE Neuro: grossly intact Nnon focal. Baseline per brother in law. mildly confused. Diaz in place, diuresing well. Pt awake to baseline. Output of > 500cc. Able to transition back to NC without significant desaturations Spoke with pts. Attending Dr Delaney> agrees pt ok to be maintained on floor. A/ Flash Pulm edema 2/2 volume resus for urosepsis Pt should be diuresed 1--> 2liters over next 24hrs as tolerated Added Azith for CAP coverage. Check BMP after diuresis Please reconsult ICU service Resident team overnight if further deteriorations If acutely failing would trial NIVPPV while further diuresis and BP control Ok for pt to be maintained on medicine floor. Bob MCELROYP
[2018-08-20] MEDS: GABAPENTIN 100 MG CAPSULE (FP) PO SCH (22:01)
[2018-08-20] MEDS: ATORVASTATIN CA 10 MG TABLET (FP) PO SCH (22:01)
--- NOTE | 2018-08-21 00:26 | EKG ---
Test Reason : Blood Pressure : / mmHG Vent. Rate : 080 BPM Atrial Rate : 060 BPM P-R Int : 272 ms QRS Dur : 098 ms QT Int : 512 ms P-R-T Axes : 023 012 031 degrees QTc Int : 590 ms POOR DATA QUALITY, INTERPRETATION MAY BE ADVERSELY AFFECTED Atrial-paced rhythm with prolonged AV conduction WITH OCCASIONAL ventricular-paced complexes NONSPECIFIC ST ABNORMALITY PROLONGED QT ABNORMAL ECG Confirmed by MD Pedro Pablo, David ([id number]) on 08/21/2018 12:25:50 AM Referred By: Confirmed By:David Chamorro MD
[2018-08-21] MEDS ORDERED: INSULIN (NOVOLOG MIX 70/30) 100 UNITS/ML MDV SQ ONE (05:58)
[2018-08-21] MEDS ORDERED: FUROSEMIDE 40 MG/4 ML INJECTABLE VIAL IVPUSH SCH (06:00)
[2018-08-21] MEDS: LEVOTHYROXINE NA 50 MCG TABLET (FP) PO SCH (06:33)
[2018-08-21] MEDS: INSULIN SLIDING SCALE (NOVOLOG) 1 VIAL SQ SCH ×4 (06:33→22:34)
[2018-08-21] MEDS: INSULIN (NOVOLOG MIX 70/30) 100 UNITS/ML MDV SQ SCH ×2 (06:33→17:13)
[2018-08-21] MEDS: FUROSEMIDE 40 MG/4 ML INJECTABLE VIAL IVPUSH SCH ×2 (06:58→16:09)
--- NOTE | 2018-08-21 08:27 | PN ---
Progress Note (short form) - Note Progress Note: acute dyspnea and hypoxia yesterday improved with iv diuresis and oxygen (did receive fluids in er) denies dyspnea at present poor appetite weak CBC, BMP 08/19/18 13:35 08/20/18 06:21 Microbiology 08/19/18 13:18 Blood - Peripheral Venous Blood Culture - Preliminary NO GROWTH OBTAINED AFTER 24 HOURS, INCUBATION TO CONTINUE FOR 4 DAYS. 08/19/18 13:18 Blood - Peripheral Venous Blood Culture - Preliminary NO GROWTH OBTAINED AFTER 24 HOURS, INCUBATION TO CONTINUE FOR 4 DAYS. 08/19/18 14:00 Urine - Urine Clean Catch Urine Culture - Preliminary Lactose Fermenting Neg Bacilli Vital Signs Period Temp Pulse Resp BP Sys/Guerra Pulse Ox Last 24 Hr 97.4 F-102.4 F 62-90 18-32 106-208/45-78 94-97 S1 s2 paced lungs rales at bases abd soft but distended no edema awake alert but very weak 88 yo lady h/o Afib/PPM/CHF/brerast CA/IDDM admitted for nausea/vomiting/fever and chills PNA on chest xray UTI PUlmonary edema yesterday -clinically better., sats are good cont iv diuresis daily weights iv abx PT once better f/up on cultures
--- NOTE | 2018-08-21 09:58 | PN ---
Progress Note, Physician Chief Complaint: Nausea and urinary incontinence History of Present Illness: Cardiology Consult 88 F w/ DM, hypothyroidism, AF s/p PPM on NOAC presented to ER with nausea and urinary incontinence. + UTI, febrile, cultured and started on abx. CXR with increased congestive findings and possible infiltrate? We were asked to see her for possible superimposed CHF. She is confused, more than baseline. Denies CP, SOB or cough. Denies edema. ECG showed atrial pacing at 80bpm. Currently on supplimental O2, receiving IV abx and IV Lasix. PMH: Hypothyroid DM HTN AF s/p PPM w/ PPM ALL: Sulfa, NATALY-I FH: No early CAD or SCD SH: Nonsmoker, lives with son nearby who is primary caregiver. - Current Medication List Current Medications: Active Medications Acetaminophen (Tylenol -) 650 mg PO Q6H PRN PRN Reason: PAIN Last Admin: 08/20/18 22:02 Dose: 650 mg Amiodarone HCl (Cordarone -) 100 mg PO DAILY [facility] Last Admin: 08/20/18 13:38 Dose: 100 mg Apixaban (Eliquis -) 2.5 mg PO BID [facility] Last Admin: 08/20/18 22:01 Dose: 2.5 mg Atorvastatin Calcium (Lipitor -) 10 mg PO HS [facility] Last Admin: 08/20/18 22:01 Dose: 10 mg Furosemide (Lasix Injection -) 40 mg IVPUSH BID@0600,1400 [facility] Last Admin: 08/21/18 06:58 Dose: Not Given Ceftriaxone Sodium 1 gm/ (Dextrose) 50 mls @ 100 mls/hr IVPB DAILY [facility]; Protocol Last Admin: 08/20/18 11:01 Dose: 100 mls/hr Azithromycin (Zithromax 500mg Ivpb (Pre-Docked)) 500 mg in 250 mls @ 250 mls/ hr IVPB DAILY [facility] Last Admin: 08/20/18 16:11 Dose: 250 mls/hr Insulin Aspart (Novolog Mix 70/30 Vial) 40 units SQ BIDAC [facility] Last Admin: 08/21/18 06:33 Dose: 40 units Insulin Aspart (Novolog Vial Sliding Scale -) 1 vial SQ ACHS [facility]; Protocol Last Admin: 08/21/18 06:33 Dose: Not Given Lactobacillus Acidophilus (Bacid -) 1 tab PO DAILY [facility] Last Admin: 08/20/18 11:00 Dose: 1 tab Levothyroxine Sodium (Synthroid -) 50 mcg PO DAILY@0700 [facility] Last Admin: 08/21/18 06:33 Dose: 50 mcg Losartan Potassium (Cozaar -) 25 mg PO DAILY [facility] Last Admin: 08/20/18 11:01 Dose: 25 mg Metoprolol Succinate (Toprol Xl -) 50 mg PO HS [facility] Last Admin: 08/20/18 22:01 Dose: 50 mg Nystatin (Mycostatin Cream -) 1 applic TP BID [facility] Last Admin: 08/20/18 22:08 Dose: 1 applic Ondansetron HCl (Zofran Injection) 4 mg IVPUSH Q6H PRN PRN Reason: NAUSEA AND/OR VOMITING Last Admin: 08/20/18 15:39 Dose: 4 mg Potassium Chloride (K-Dur -) 10 meq PO BID [facility] Last Admin: 08/20/18 22:01 Dose: 10 meq - Objective Vital Signs: Vital Signs Temperature 98.4 F 08/21/18 07:03 Pulse Rate 76 08/21/18 07:03 Respiratory Rate 20 08/21/18 07:03 Blood Pressure 109/45 L 08/21/18 07:03 O2 Sat by Pulse Oximetry (%) 97 08/20/18 21:00 Constitutional: Yes: No Distress Eyes: Yes: Conjunctiva Clear Cardiovascular: Yes: Regular Rate and Rhythm Respiratory: Yes: Other (bibasilar rales and rhonchi) Gastrointestinal: Yes: Soft Edema: No Neurological: Yes: Confusion Labs: CBC, BMP 08/19/18 13:35 08/20/18 06:21 INR, PTT INR 1.07 (0.83-1.09) 08/19/18 13:35 Microbiology 08/19/18 13:18 Blood - Peripheral Venous Blood Culture - Preliminary NO GROWTH OBTAINED AFTER 24 HOURS, INCUBATION TO CONTINUE FOR 4 DAYS. 08/19/18 13:18 Blood - Peripheral Venous Blood Culture - Preliminary NO GROWTH OBTAINED AFTER 24 HOURS, INCUBATION TO CONTINUE FOR 4 DAYS. Laboratory Tests 08/19/18 08/20/18 13:35 13:11 WBC 7.1 Hgb 12.4 Plt Count 224 ABG pH 7.36 ABG pCO2 at Pt Temp 37.6 ABG pO2 at Pt Temp 50.2 L Oxygen Flow Rate 50 - ....Imaging Chest X-ray: Image Reviewed (b/l increased PVC: R> L ; cannot r/o infiltrates vs all congestion) EKG: Image Reviewed Assessment/Plan IMP: 1. UTI 2. Possible PNA 3. PAF s/p PPM, on NOAC 4. Suspected component of acute on chronic diastolic CHF REC: 1. To continue abx as per PMD, follow cultures, supplimental O2 2. Cont Eliquis adjusted for age, weight and renal fx. 3. Check BNP and Chest CT without contrast to better assess lung parenchyma ( infiltrate vs congestion) 4. Cont IV Lasix, daily weights and BMP to follow renal function. Thank you.
[2018-08-21] MEDS ORDERED: METOPROLOL TARTRATE 5 MG/5 ML VIAL IVPB PRN (10:20)
[2018-08-21] MEDS: NYSTATIN 100,000 UNIT/GM TOPICAL CREAM 15 GM TUBE TP SCH (11:00)
[2018-08-21] MEDS: DIGOXIN 0.5 MG/2 ML AMPUL IVPUSH SCH ×3 (11:16→22:35)
--- NOTE | 2018-08-21 11:17 | PN ---
Progress Note (short form) - Note Progress Note: ID CONSULT DICTATED ENTEROBACTER UTI R/O SEPSIS SECONDARY TO UTI CHF V, PNEUMONIA TOXIC METABOLIC ENCEPHALOPATHY RAPID AFIB LACTIC ACIDOSIS PROLONGED QT AWAIT C/S EMPIRIC MEROPENEM
[2018-08-21] MEDS: LOSARTAN POTASSIUM 25 MG TABLET PO SCH (12:17)
[2018-08-21] MEDS: AZITHROMYCIN IVPB 500 MG/250 ML BAG IVPB SCH (12:18)
[2018-08-21] MEDS: CEFTRIAXONE 1 GM in DEXTROSE 5%-WATER - 50 ML IVPB SCH (12:18)
[2018-08-21] MEDS: AMIODARONE HCL 200 MG TABLET (FP) PO SCH (12:19)
[2018-08-21] MEDS: POTASSIUM CHLORIDE TABS 10 MEQ TABLET.ER (FP) PO SCH ×2 (12:58→22:35)
[2018-08-21] MEDS: LACTOBACILLUS ACIDOPHILUS 1 TABLET PO SCH (12:58)
[2018-08-21] MEDS: APIXABAN 2.5 MG TABLET PO SCH ×2 (12:58→22:35)
[2018-08-21] MEDS ORDERED: METOPROLOL TARTRATE 5 MG/5 ML VIAL IVPUSH PRN (13:00)
--- NOTE | 2018-08-21 13:17 | CONS ---
INFECTIOUS DISEASE CONSULTATION DATE OF CONSULTATION: DATE OF DICTATION: 08/21/2018 HISTORY: The patient is an 88-year-old female evaluated for sepsis. History was obtained from the chart as she cannot give a history at the present time. The patient was admitted to the hospital on August 19, 2018 with reports of nausea, vomiting, urinary incontinence, and increased lethargy. She lives at home. She was brought to the emergency room by family members. In the emergency room, the patient was febrile to 102.7. She was noted to be hypoxemic. She was given Lasix. She was transferred to the floor. Her hospital course has been complicated by rapid response. The patient developed acute onset of shortness of breath. She was given Lasix with some interval improvement. She was empirically treated with Zithromax and ceftriaxone for possible pneumonia. Today the patient developed a recurrent episode of labored breathing. Was found to be in rapid atrial fibrillation. She is now transferred to the telemetry unit. At the present time, she is awake and responsive; however, she appears confused. She cannot give a reliable history. She is slightly short of breath at rest on nasal cannula O2. When questioned, she indicates pain in the abdominal area. She points to the right upper quadrant and periumbilical area. No reports of recurrent nausea or vomiting. No reports of diarrhea. She was seen in consultation by Cardiology. Patient lives at home. No recent hospitalizations. She is a nonsmoker. No known ill contacts. No known recent travel. Her vaccination status is not known. Patient was found to have an Enterobacter urinary tract infection and has had a history of recurrent urinary tract infections in the past. PAST MEDICAL HISTORY: Positive for congestive heart failure, atrial fibrillation, hypertension, TIA, recurrent urinary tract infections, hypothyroidism, left breast cancer, insulin-dependent diabetes mellitus. PAST SURGICAL HISTORY: Status post lumpectomy. ALLERGIES: SULFA and LISINOPRIL. Patient has reported swelling with SULFA. The nature of the LISINOPRIL allergy is not known. MEDICATIONS: At the present time include Tylenol, Eliquis, Lipitor, Lasix, metoprolol. SOCIAL HISTORY: As per HPI. SYSTEMS REVIEW: Neurologic: Positive for altered mentation. No loss of consciousness, seizure activity, or focal weakness. Cardiac: As per HPI. Respiratory: As per HPI. Gastrointestinal: Positive for vomiting. No reported diarrhea. Genitourinary: Positive for urinary incontinence and urinary tract infection. LABORATORY DATA: White count 7.1, hematocrit 36.7, platelet count 224, BUN 25, creatinine 1.2. Urinalysis 47 white cells, lactic acid 2.7. Chest x-ray shows congestion bilaterally right greater than left. EKG: QT interval 590. PHYSICAL EXAMINATION: General: She is awake but confused. Breathing is slightly labored. Vital Signs: Temperature 98.4, blood pressure 109/45, pulse 76 regular, respirations 20 per minute, maximum temperature 102.3. Heart: Sounds irregular S1, S2. Lungs: Rales at the bases bilaterally. Abdomen: Obese. No tenderness elicited. No mass, rebound, or rigidity. Extremities: Negative for edema. Positive stasis dermatitis. IMPRESSION: 1. Enterobacter urinary tract infection, rule out sepsis secondary to urinary tract infection. 2. Congestive heart failure, rule out pneumonia. 3. Toxic metabolic encephalopathy. 4. Congestive heart failure versus pneumonia. 5. Rapid atrial fibrillation. 6. Lactic acidosis. 7. Prolonged QT interval. PLAN: Await sepsis workup. Cardiology evaluation. Obtain urine Legionella and pneumococcal antigens. Empiric antibiotic coverage for resistant Enterobacter urinary tract infection, possible urosepsis with Meropenem adjusted for advanced age and renal insufficiency. Prognosis is guarded. We will follow. Thank you for the kind referral. BRIELLE SAL M.D. [id number]
[2018-08-21 13:34] LABS: N-TERMINAL BNP 33445.4 pg/ml (5-450)
[2018-08-21 13:48] LABS: BLOOD UREA NITROGEN 42.2 mg/dL (7-18); CALCIUM 7.1 mg/dL (8.5-10.1); POTASSIUM 3.9 mmol/L (3.5-5.1)
[2018-08-21] MEDS ORDERED: PT OWN MED DRAWER 7, Y5N ONE (15:54)
--- NOTE | 2018-08-21 15:58 | ECHO ---
Name: MICK JACKSON Exam:Adult Echocardiogram Study Date: 08/21/2018 11:37 AM Age: 88 yrs Reason For Study: chf Height: 63 in Weight: 190 lb BSA: 1.9 m2 Procedure A complete two-dimensional transthoracic echocardiogram was performed (2D, M-mode, Doppler and color flow Doppler). Technically limited study. Left Ventricle The left ventricle is normal in size. Left ventricular systolic function is mild to moderately reduce d. There is severe apical wall hypokinesis. There is apical lateral wall moderate hypokinesis. There is apical septal wall moderate hypokinesis. There are regional wall motion abnormalities as specified. Right Ventricle The right ventricle is normal size. The right ventricular systolic function is normal. Atria The left atrium is mildly dilated. Right atrial size is normal. Mitral Valve There is moderate to severe mitral annular calcification. There is mild mitral regurgitation. Tricuspid Valve The tricuspid valve is normal in structure and function. There is moderate tricuspid regurgitation. P ulmonary artery systolic pressure is at least 40 mmHg if RA pressure is assumed 3 mmHg. Aortic Valve The aortic valve is normal in structure and function. Trace to mild aortic regurgitation. Pulmonic Valve The pulmonic valve is not well visualized. Great Vessels The aortic root is normal size. Pericardium/Pleura There is no pericardial effusion. Interpretation Summary Technically limited study The left ventricle is normal in size. Left ventricular systolic function is mild to moderately reduced. There are regional wall motion abnormalities as specified. The right ventricular systolic function is normal. Right atrial size is normal. The left atrium is mildly dilated. There is moderate to severe mitral annular calcification. There is mild mitral regurgitation. There is moderate tricuspid regurgitation. Pulmonary artery systolic pressure is at least 40 mmHg if RA pressure is assumed 3 mmHg Trace to mild aortic regurgitation. There is no pericardial effusion. Previous study is not available for comparison Venkat Donaldson MD 08/21/2018 03:57 PM
[2018-08-21] MEDS: MEROPENEM 500 MG in DEXTROSE 5%-WATER 100 ML IVPB SCH ×2 (16:17→17:14)
--- NOTE | 2018-08-21 16:44 | EKG ---
Test Reason : Blood Pressure : / mmHG Vent. Rate : 132 BPM Atrial Rate : 141 BPM P-R Int : 000 ms QRS Dur : 100 ms QT Int : 296 ms P-R-T Axes : 000 059 234 degrees QTc Int : 438 ms ATRIAL FIBRILLATION WITH RAPID VENTRICULAR RESPONSE POSSIBLE INFERIOR INFARCT , AGE UNDETERMINED ANTERIOR INFARCT , AGE UNDETERMINED ABNORMAL ECG WHEN COMPARED WITH ECG OF 19-AUG-2018 13:11, ATRIAL FIBRILLATION HAS REPLACED ELECTRONIC VENTRICULAR PACEMAKER VENT. RATE HAS INCREASED BY 52 BPM Confirmed by JOSE HANSEN MD ([id number]) on 08/21/2018 4:44:04 PM Referred By: Confirmed By:JOSE HANSEN MD
[2018-08-21] MEDS: ACETAMINOPHEN 325 MG TABLET (FP) PO PRN (17:18)
[2018-08-21] MEDS: ATORVASTATIN CA 10 MG TABLET (FP) PO SCH (22:34)
[2018-08-22] MEDS: MEROPENEM 500 MG in DEXTROSE 5%-WATER 100 ML IVPB SCH ×3 (02:25→18:17)
[2018-08-22] MEDS: NYSTATIN 100,000 UNIT/GM TOPICAL CREAM 15 GM TUBE TP SCH ×3 (02:27→21:12)
[2018-08-22] MEDS: DIGOXIN 0.5 MG/2 ML AMPUL IVPUSH SCH (06:38)
[2018-08-22] MEDS: LEVOTHYROXINE NA 50 MCG TABLET (FP) PO SCH (06:39)
[2018-08-22] MEDS: ACETAMINOPHEN 325 MG TABLET (FP) PO PRN ×2 (06:39→18:17)
[2018-08-22] MEDS: FUROSEMIDE 40 MG/4 ML INJECTABLE VIAL IVPUSH SCH ×2 (06:39→15:39)
[2018-08-22] MEDS: INSULIN (NOVOLOG MIX 70/30) 100 UNITS/ML MDV SQ SCH ×2 (06:45→18:07)
[2018-08-22] MEDS: INSULIN SLIDING SCALE (NOVOLOG) 1 VIAL SQ SCH ×4 (06:47→21:12)
[2018-08-22 08:29] LABS: BASO % 0.3 % (0-2.0); HEMATOCRIT 35.8 % (32.4-45.2); HEMOGLOBIN 12.1 GM/dL (10.7-15.3); LYMPH % 10.4 % (8-40); MCH 29.9 pg (25.7-33.7); MCHC 33.7 g/dl (32.0-36.0); MEAN CELL VOLUME 88.8 fl (80-96); MEAN PLT VOLUME 10.3 fl (7.5-11.1); MONO % 5.2 % (3.8-10.2); NEUT % 84.1 % (42.8-82.8); RBC 4.03 M/mm3 (3.60-5.2); RDW 14.5 % (11.6-15.6); WHITE BLOOD COUNT 5.9 K/mm3 (4.0-10.0)
[2018-08-22 08:43] LABS: CALCIUM 7.4 mg/dL (8.5-10.1); CREATININE 1.8 mg/dL (0.55-1.3); POTASSIUM 4.1 mmol/L (3.5-5.1)
[2018-08-22] MEDS: POTASSIUM CHLORIDE TABS 10 MEQ TABLET.ER (FP) PO SCH ×2 (10:38→21:05)
[2018-08-22] MEDS: LACTOBACILLUS ACIDOPHILUS 1 TABLET PO SCH (10:38)
[2018-08-22] MEDS: APIXABAN 2.5 MG TABLET PO SCH ×2 (10:38→21:05)
--- NOTE | 2018-08-22 10:53 | PN ---
Progress Note (short form) - Note Progress Note: s: lethargic, no chest pain, sob. febrile overnight to 103. Was transferred to tele yesterday for afib with RVR Current Medications Acetaminophen (Tylenol -) 650 mg PO Q6H PRN PRN Reason: PAIN Last Admin: 08/22/18 06:39 Dose: 650 mg Apixaban (Eliquis -) 2.5 mg PO BID [facility] Last Admin: 08/22/18 10:38 Dose: 2.5 mg Atorvastatin Calcium (Lipitor -) 10 mg PO HS [facility] Last Admin: 08/21/18 22:34 Dose: 10 mg Furosemide (Lasix Injection -) 40 mg IVPUSH BID@0600,1400 [facility] Last Admin: 08/22/18 06:39 Dose: 40 mg Meropenem 500 mg/ Dextrose 100 mls @ 200 mls/hr IVPB Q8H-IV [facility] Last Admin: 08/22/18 10:38 Dose: 200 mls/hr Insulin Aspart (Novolog Mix 70/30 Vial) 40 units SQ BIDAC [facility] Last Admin: 08/22/18 06:45 Dose: 40 units Insulin Aspart (Novolog Vial Sliding Scale -) 1 vial SQ ACHS [facility]; Protocol Last Admin: 08/22/18 06:47 Dose: 2 units Lactobacillus Acidophilus (Bacid -) 1 tab PO DAILY [facility] Last Admin: 08/22/18 10:38 Dose: 1 tab Levothyroxine Sodium (Synthroid -) 50 mcg PO DAILY@0700 [facility] Last Admin: 08/22/18 06:39 Dose: 50 mcg Metoprolol Succinate (Toprol Xl -) 50 mg PO BID [facility] Metoprolol Tartrate (Lopressor Injection -) 5 mg IVPUSH Q4H PRN PRN Reason: HYPERTENSION Nystatin (Mycostatin Cream -) 1 applic TP BID [facility] Last Admin: 08/22/18 02:27 Dose: 1 applic Ondansetron HCl (Zofran Injection) 4 mg IVPUSH Q6H PRN PRN Reason: NAUSEA AND/OR VOMITING Last Admin: 08/20/18 15:39 Dose: 4 mg Potassium Chloride (K-Dur -) 10 meq PO BID [facility] Last Admin: 08/22/18 10:38 Dose: 10 meq Vital Signs Period Temp Pulse Resp BP Sys/Guerra Pulse Ox Last 24 Hr 99 F-103.9 F 110-136 20-24 88-155/45-72 91-95 Constitutional: Yes: No Distress Eyes: Yes: Conjunctiva Clear Cardiovascular: Yes: Regular Rate and Rhythm Respiratory: Yes: Other (bibasilar rales and rhonchi) Gastrointestinal: Yes: Soft Edema: No Neurological: alert not agitated no jaundice, diaphoresis - ....Imaging Chest X-ray: Image Reviewed (b/l increased PVC: R> L ; cannot r/o infiltrates vs all congestion) EKG: Image Reviewed tele: afib rate 90s-100s, occ RVR 120s echo 08/2018 LV function mild- mod reduced with rwma, nl RV function, mildly dilated LA, mod to severe MAC, mild MR, mod TR, PASP at least 40 mmHG, tr to mild AR, severe apical hypokinesis, apical lateral wall hypokinesis, apical septal wall mod hypokinesis Assessment/Plan IMP: 1. UTI 2. Possible PNA 3. PAF s/p PPM, on NOAC 4. Suspected component of acute on chronic diastolic CHF REC: - manage UTI, PNA per primary - afib with RVR, rates improved after digoxin load yesterday with episodes of RVR 120s, increase metoprolol to 50 mg BID, lopressor IV PRN for tachycardia, cont eliquis 2.5 mg BID - BNP elevated, chest CT pending, echo showed mildly to mod reduced LV function - continue lasix IV, monitor daily weights, lytes, Cr - Cr improving with diuresis
[2018-08-22 10:55] LABS: PLATELET ESTIMATE DECREASED
--- NOTE | 2018-08-22 11:04 | PN ---
Progress Note (short form) - Note Progress Note: developed rapid afib yesterday-was transferred to telemetry. febrile overnight over 103 CBC, BMP 08/22/18 05:51 08/22/18 05:51 Microbiology 08/19/18 13:18 Blood - Peripheral Venous Blood Culture - Preliminary NO GROWTH OBTAINED AFTER 48 HOURS, INCUBATION TO CONTINUE FOR 3 DAYS. 08/19/18 13:18 Blood - Peripheral Venous Blood Culture - Preliminary NO GROWTH OBTAINED AFTER 48 HOURS, INCUBATION TO CONTINUE FOR 3 DAYS. 08/19/18 14:00 Urine - Urine Clean Catch Urine Culture - Final Enterobacter Aerogenes sensitive to meropenem S1 s2 irreg.irreg, tachy 90-109 lungs rales at bases, little better than yesterday abd soft but distended no edema awake alert but very weak, oriented to place and person 88 yo lady h/o Afib/PPM/CHF/brerast CA/IDDM admitted for nausea/vomiting/fever and chills PNA on chest xray UTI sepsis PUlmonary edema Rapid afib FRANDY better today cont iv diuresis daily weights iv abx PT once better f/up on cultures increase bblocker
[2018-08-22 11:26] LABS: PLATELET COUNT 79 K/MM3 (134-434)
[2018-08-22] MEDS ORDERED: PT OWN MED DRAWER 7, Y5N ONE ×2 (12:28→18:16)
--- NOTE | 2018-08-22 13:54 | CONSULT ---
Consult Consult Specialty:: Nephrology Reason for Consultation:: FRANDY - History of Present Illness Chief Complaint: fever History of Present Illness: Pt is an 88 year old female with pmhx of htn, chf, a-fib, TIA, and UTI who presented with fever and nausea. She was admitted with UTI and was on IV abx. I was mayers to evaluate her for elevated creatinine. She developed rapid a-fib and was hypotensive. She is in the tele [facility]. Pt was on ceftriaxone at home and is on meropenem. She does complain of shortness of breath. - History Source History Provided By: Patient - Past Medical History Cardio/Vascular: Yes: AFIB, CAD, HTN, Hyperlipdemia Renal/: Yes: UTI, Other (urinary frequency and urgency ) Infectious Disease: Yes: Other (recurrent UTI) Endocrine: Yes: Diabetes Mellitus (insulin dependent), Hypothyroidism Dermatology: Yes: Squamous Cell (s/p excision 5 days ago) - Alcohol/Substance Use Hx Alcohol Use: No - Smoking History Smoking history: Never smoked Have you smoked in the past 12 months: No Aproximately how many cigarettes per day: 0 - Social History ADL: Independent (uses cane and walker has had h/o frequent falls.) History of Recent Travel: No Home Medications - Allergies Allergies/Adverse Reactions: Allergies Allergy/AdvReac Type Severity Reaction Status Date / Time Sulfa (Sulfonamide Allergy Severe Swelling Verified 08/19/18 13:11 Antibiotics) lisinopril Allergy Intermediate Verified 08/19/18 16:59 - Home Medications Home Medications: Ambulatory Orders Amiodarone HCl 100 mg PO DAILY 08/19/18 Apixaban [Eliquis -] 2.5 mg PO BID 08/19/18 Atorvastatin Ca [Lipitor] 10 mg PO HS 08/19/18 B12/Levomefolate Calcium/B-6 [Folbic Rf Tablet] 1 each PO DAILY 08/19/18 Biotin 5,000 mcg PO HS 08/19/18 Cephalexin [Keflex] 250 mg PO DAILY 08/19/18 Furosemide [Lasix -] 40 mg PO DAILY 08/19/18 Insulin Lispro Protamin/Lispro [Humalog Mix 75-25 Kwikpen] 100 unit SQ ACHS Insulin Lispro [Humalog] 100 unit SQ ASDIR 08/19/18 Lactobacillus Acidophilus [Acidophilus] 1 each PO DAILY 08/19/18 Levothyroxine [Synthroid -] 50 mcg PO DAILY 08/19/18 Metoprolol Succinate 100 mg PO DAILY 08/19/18 Metoprolol Succinate [Toprol Xl -] 50 mg PO HS 08/19/18 Polyethylene Glycol [Polyox Wsr-301] 1 gm MC DAILY 08/19/18 Potassium Chloride [K-Dur -] 10 meq PO BID 08/19/18 Tamoxifen Citrate 20 mg PO DAILY 08/19/18 Review of Systems - Review of Systems Constitutional: reports: Fever, Malaise Eyes: reports: No Symptoms HENT: reports: No Symptoms Neck: reports: No Symptoms Cardiovascular: reports: Edema, Shortness of Breath Gastrointestinal: reports: No Symptoms Genitourinary: reports: Dysuria Musculoskeletal: reports: No Symptoms Neurological: reports: No Symptoms Endocrine: reports: No Symptoms Hematology/Lymphatic: reports: No Symptoms Psychiatric: reports: No Symptoms Physical Exam Vital Signs: Vital Signs Temperature 103.9 F H 08/22/18 06:00 Pulse Rate 120 H 08/22/18 06:00 Respiratory Rate 24 H 08/22/18 06:00 Blood Pressure 155/72 08/22/18 06:00 O2 Sat by Pulse Oximetry (%) 95 08/21/18 20:54 Constitutional: Yes: Calm Eyes: Yes: Conjunctiva Clear HENT: Yes: Atraumatic Neck: Yes: Supple Cardiovascular: Yes: S1, S2 Respiratory: Yes: On Venti-Mask Gastrointestinal: Yes: Soft Renal/: Yes: WNL Musculoskeletal: Yes: Muscle Weakness Edema: Yes Edema: LLE: 1+, RLE: 1+ Neurological: Yes: Oriented Psychiatric: Yes: Oriented Labs: CBC, BMP 08/22/18 05:51 08/22/18 05:51 Microbiology 08/19/18 14:00 Urine - Urine Clean Catch Urine Culture - Final Enterobacter Aerogenes 08/19/18 13:18 Blood - Peripheral Venous Blood Culture - Preliminary NO GROWTH OBTAINED AFTER 72 HOURS, INCUBATION TO CONTINUE FOR 2 DAYS. 08/19/18 13:18 Blood - Peripheral Venous Blood Culture - Preliminary NO GROWTH OBTAINED AFTER 72 HOURS, INCUBATION TO CONTINUE FOR 2 DAYS. Selected Entries 08/21/18 08/21/18 08/21/18 07:03 10:44 10:55 Blood Pressure 109/45 L 98/50 L 88/45 L 08/21/18 08/21/18 08/22/18 14:21 22:00 02:00 Blood Pressure 107/62 101/53 L 125/60 Laboratory Tests 08/19/18 08/19/18 08/20/18 13:35 14:00 06:21 WBC Hgb Sodium Chloride Creatinine 1.3 1.2 Urine Protein Trace Urine Blood Trace Urine Nitrite Positive H 08/21/18 08/22/18 08/22/18 12:50 05:51 05:51 WBC 5.9 Hgb 12.1 Sodium 138 Chloride 105 Creatinine 2.0 H 1.8 H Urine Protein Urine Blood Urine Nitrite Imaging - Results Chest X-ray: Report Reviewed Problem List - Problems (1) Urinary tract infection Code(s): N39.0 - URINARY TRACT INFECTION, SITE NOT SPECIFIED (2) Acute renal failure Code(s): N17.9 - ACUTE KIDNEY FAILURE, UNSPECIFIED Qualifiers: Acute renal failure type: unspecified Qualified Code(s): N17.9 - Acute kidney failure, unspecified Assessment/Plan Current Medications Generic Name Dose Route Start Last Admin Trade Name Freq PRN Reason Stop Dose Admin Acetaminophen 650 mg 08/19/18 17:23 08/22/18 06:39 Tylenol - PO 650 mg Q6H PRN Administration PAIN Apixaban 2.5 mg 08/19/18 22:00 08/22/18 10:38 Eliquis - PO 2.5 mg BID [facility] Administration Atorvastatin Calcium 10 mg 08/19/18 22:00 08/21/18 22:34 Lipitor - PO 10 mg HS [facility] Administration Furosemide 40 mg 08/20/18 14:24 08/22/18 06:39 Lasix Injection - IVPUSH 40 mg BID@0600,1400 [facility] Administration Meropenem 500 mg/ Dextrose 100 mls @ 200 mls/hr 08/21/18 11:30 08/22/18 10:38 IVPB 200 mls/hr Q8H-IV [facility] Administration Insulin Aspart 40 units 08/20/18 07:00 08/22/18 06:45 Novolog Mix 70/30 Vial SQ 40 units BIDAC [facility] Administration Insulin Aspart 1 vial 08/19/18 22:00 08/22/18 12:34 Novolog Vial Sliding Scale - SQ Not Given ACHS [facility] Protocol Lactobacillus Acidophilus 1 tab 08/20/18 10:00 08/22/18 10:38 Bacid - PO 1 tab DAILY [facility] Administration Levothyroxine Sodium 50 mcg 08/20/18 07:00 08/22/18 06:39 Synthroid - PO 50 mcg DAILY@0700 [facility] Administration Metoprolol Succinate 50 mg 08/22/18 10:45 Toprol Xl - PO BID [facility] Metoprolol Tartrate 5 mg 08/21/18 13:00 Lopressor Injection - IVPUSH Q4H PRN HYPERTENSION Nystatin 1 applic 08/19/18 14:00 08/22/18 02:27 Mycostatin Cream - TP 1 applic BID [facility] Administration Ondansetron HCl 4 mg 08/20/18 14:19 08/20/18 15:39 Zofran Injection IVPUSH 4 mg Q6H PRN Administration NAUSEA AND/OR VOMITING Potassium Chloride 10 meq 08/19/18 22:00 08/22/18 10:38 K-Dur - PO 10 meq BID [facility] Administration Impression 1. FRANDY 2. UTI 3. a-fib 4. CHF 5. hx of HTN 6. PNA 7. 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
--- NOTE | 2018-08-22 17:09 | PN ---
Progress Note, Physician History of Present Illness: PERSISTANT FEVER NOTED REPEAT BC OBTAINED AWAKE, LETHARGIC DENIES PAIN; OFFERS NO COMPLAINTS - Current Medication List Current Medications: Active Medications Acetaminophen (Tylenol -) 650 mg PO Q6H PRN PRN Reason: PAIN Last Admin: 08/22/18 06:39 Dose: 650 mg Apixaban (Eliquis -) 2.5 mg PO BID [facility] Last Admin: 08/22/18 10:38 Dose: 2.5 mg Atorvastatin Calcium (Lipitor -) 10 mg PO HS [facility] Last Admin: 08/21/18 22:34 Dose: 10 mg Furosemide (Lasix Injection -) 40 mg IVPUSH BID@0600,1400 [facility] Last Admin: 08/22/18 15:39 Dose: 40 mg Meropenem 500 mg/ Dextrose 100 mls @ 200 mls/hr IVPB Q8H-IV [facility] Last Admin: 08/22/18 10:38 Dose: 200 mls/hr Insulin Aspart (Novolog Mix 70/30 Vial) 40 units SQ BIDAC [facility] Last Admin: 08/22/18 06:45 Dose: 40 units Insulin Aspart (Novolog Vial Sliding Scale -) 1 vial SQ ACHS [facility]; Protocol Last Admin: 08/22/18 12:34 Dose: Not Given Lactobacillus Acidophilus (Bacid -) 1 tab PO DAILY [facility] Last Admin: 08/22/18 10:38 Dose: 1 tab Levothyroxine Sodium (Synthroid -) 50 mcg PO DAILY@0700 [facility] Last Admin: 08/22/18 06:39 Dose: 50 mcg Metoprolol Succinate (Toprol Xl -) 50 mg PO BID [facility] Last Admin: 08/22/18 11:38 Dose: 50 mg Metoprolol Tartrate (Lopressor Injection -) 5 mg IVPUSH Q4H PRN PRN Reason: HYPERTENSION Nystatin (Mycostatin Cream -) 1 applic TP BID [facility] Last Admin: 08/22/18 10:38 Dose: 1 applic Ondansetron HCl (Zofran Injection) 4 mg IVPUSH Q6H PRN PRN Reason: NAUSEA AND/OR VOMITING Last Admin: 08/20/18 15:39 Dose: 4 mg Potassium Chloride (K-Dur -) 10 meq PO BID [facility] Last Admin: 08/22/18 10:38 Dose: 10 meq - Objective Vital Signs: Vital Signs Temperature 103 F H 08/22/18 14:10 Pulse Rate 81 08/22/18 14:10 Respiratory Rate 22 H 08/22/18 14:10 Blood Pressure 115/55 L 08/22/18 14:10 O2 Sat by Pulse Oximetry (%) 95 08/22/18 11:00 Constitutional: Yes: No Distress Cardiovascular: Yes: Regular Rate and Rhythm, S1, S2 Respiratory: Yes: Diminished Gastrointestinal: Yes: Normal Bowel Sounds, Soft, Abdomen, Obese. No: Tenderness Edema: No Labs: CBC, BMP 08/22/18 05:51 08/22/18 05:51 INR, PTT INR 1.07 (0.83-1.09) 08/19/18 13:35 Assessment/Plan UTI R/O SEPSIS SECONDARY TO PNEUMONIA CHF V. PNEUMONIA TOXIC METABOLIC ENCEPHALOPATHY AZOTEMIA LACTIC ACIDOSIS- RESOLVED REPEAT BC OBTAINED CONTINUE MEROPENEM
[2018-08-22 18:21] LABS: EPI CELLS 1.9 /HPF (0-5/HPF); HYALINE CASTS 11 /lpf (0-8); PH,URINE 5.5 (5.0-8.0); URINE APPEARANCE CLEAR; URINE BACTERIA 0.8 /hpf (NEGATIVE); URINE BILIRUBIN NEGATIVE (NEGATIVE); URINE COLOR YELLOW; URINE GLUCOSE (UA) NEGATIVE (NEGATIVE); URINE KETONE NEGATIVE (NEGATIVE); URINE LEUK ESTERASE TRACE (NEGATIVE); URINE NITRITE NEGATIVE (NEGATIVE); URINE PROTEIN 1+ (NEGATIVE); URINE RBC 5 /hpf (0-4); URINE UROBILINOGEN 0.2 mg/dL (0.2-1.0); URINE WBC 5 /hpf (0-5)
[2018-08-22] MEDS: ATORVASTATIN CA 10 MG TABLET (FP) PO SCH (21:05)
[2018-08-23] MEDS ORDERED: PT OWN MED DRAWER 7, Y5N ONE ×4 (00:53→17:38)
[2018-08-23] MEDS: MEROPENEM 500 MG in DEXTROSE 5%-WATER 100 ML IVPB SCH ×4 (00:59→17:43)
[2018-08-23] MEDS: INSULIN SLIDING SCALE (NOVOLOG) 1 VIAL SQ SCH ×4 (06:17→21:43)
[2018-08-23] MEDS: FUROSEMIDE 40 MG/4 ML INJECTABLE VIAL IVPUSH SCH ×2 (06:18→15:30)
[2018-08-23] MEDS: INSULIN (NOVOLOG MIX 70/30) 100 UNITS/ML MDV SQ SCH ×2 (06:18→17:13)
[2018-08-23] MEDS: LEVOTHYROXINE NA 50 MCG TABLET (FP) PO SCH (06:19)
[2018-08-23 07:52] LABS: BASO % 0.2 % (0-2.0); HEMATOCRIT 33.6 % (32.4-45.2); HEMOGLOBIN 11.4 GM/dL (10.7-15.3); LYMPH % 10.2 % (8-40); MCH 29.9 pg (25.7-33.7); MCHC 33.7 g/dl (32.0-36.0); MEAN CELL VOLUME 88.6 fl (80-96); MONO % 6.2 % (3.8-10.2); NEUT % 83.4 % (42.8-82.8); PLATELET COUNT 57 K/MM3 (134-434); RDW 14.3 % (11.6-15.6); WHITE BLOOD COUNT 5.2 K/mm3 (4.0-10.0)
[2018-08-23 08:23] LABS: ALBUMIN 2.3 g/dl (3.4-5.0); BLOOD UREA NITROGEN 47.2 mg/dL (7-18); CALCIUM 7.3 mg/dL (8.5-10.1)
[2018-08-23 08:27] LABS: BILIRUBIN,TOTAL 0.9 mg/dL (0.2-1); CREATININE 1.6 mg/dL (0.55-1.3); TOT PROT 5.6 g/dl (6.4-8.2)
[2018-08-23] MEDS: NYSTATIN 100,000 UNIT/GM TOPICAL CREAM 15 GM TUBE TP SCH ×2 (10:06→21:20)
[2018-08-23] MEDS: POTASSIUM CHLORIDE TABS 10 MEQ TABLET.ER (FP) PO SCH ×2 (10:06→21:19)
[2018-08-23] MEDS: APIXABAN 2.5 MG TABLET PO SCH ×2 (10:06→21:19)
[2018-08-23] MEDS: LACTOBACILLUS ACIDOPHILUS 1 TABLET PO SCH (10:07)
--- NOTE | 2018-08-23 10:58 | PN ---
Progress Note (short form) - Note Progress Note: s: no chest pain, palps, dyspnea. Current Medications Acetaminophen (Tylenol -) 650 mg PO Q6H PRN PRN Reason: PAIN Last Admin: 08/22/18 18:17 Dose: 650 mg Apixaban (Eliquis -) 2.5 mg PO BID [facility] Last Admin: 08/23/18 10:06 Dose: 2.5 mg Atorvastatin Calcium (Lipitor -) 10 mg PO HS [facility] Last Admin: 08/22/18 21:05 Dose: 10 mg Furosemide (Lasix Injection -) 40 mg IVPUSH BID@0600,1400 [facility] Last Admin: 08/23/18 06:18 Dose: 40 mg Meropenem 500 mg/ Dextrose 100 mls @ 200 mls/hr IVPB Q8H-IV [facility] Last Admin: 08/23/18 10:04 Dose: 200 mls/hr Insulin Aspart (Novolog Mix 70/30 Vial) 40 units SQ BIDAC [facility] Last Admin: 08/23/18 06:18 Dose: 40 units Insulin Aspart (Novolog Vial Sliding Scale -) 1 vial SQ ACHS [facility]; Protocol Last Admin: 08/23/18 06:17 Dose: Not Given Lactobacillus Acidophilus (Bacid -) 1 tab PO DAILY [facility] Last Admin: 08/23/18 10:07 Dose: 1 tab Levothyroxine Sodium (Synthroid -) 50 mcg PO DAILY@0700 [facility] Last Admin: 08/23/18 06:19 Dose: 50 mcg Metoprolol Succinate (Toprol Xl -) 50 mg PO BID [facility] Last Admin: 08/23/18 10:06 Dose: 50 mg Metoprolol Tartrate (Lopressor Injection -) 5 mg IVPUSH Q4H PRN PRN Reason: HYPERTENSION Nystatin (Mycostatin Cream -) 1 applic TP BID [facility] Last Admin: 08/23/18 10:06 Dose: 1 applic Ondansetron HCl (Zofran Injection) 4 mg IVPUSH Q6H PRN PRN Reason: NAUSEA AND/OR VOMITING Last Admin: 08/20/18 15:39 Dose: 4 mg Potassium Chloride (K-Dur -) 10 meq PO BID [facility] Last Admin: 08/23/18 10:06 Dose: 10 meq Vital Signs Period Temp Pulse Resp BP Sys/Guerra Pulse Ox Last 24 Hr 98.2 F-104.2 F 81-134 18-22 114-161/50-87 95-96 Constitutional: Yes: No Distress Eyes: Yes: Conjunctiva Clear Cardiovascular: Yes: Regular Rate and Rhythm Respiratory: Yes: Other (bibasilar rales and rhonchi) Gastrointestinal: Yes: Soft Edema: No Neurological: alert not agitated no jaundice, diaphoresis - ....Imaging Chest X-ray: Image Reviewed (b/l increased PVC: R> L ; cannot r/o infiltrates vs all congestion) EKG: Image Reviewed tele: afib rate 90s-100s echo 08/2018 LV function mild- mod reduced with rwma, nl RV function, mildly dilated LA, mod to severe MAC, mild MR, mod TR, PASP at least 40 mmHG, tr to mild AR, severe apical hypokinesis, apical lateral wall hypokinesis, apical septal wall mod hypokinesis Assessment/Plan IMP: 1. UTI 2. Possible PNA 3. PAF s/p PPM, on NOAC 4. Suspected component of acute on chronic diastolic CHF REC: - manage UTI, PNA per primary - rates improved on increased metprolol dose, continue. cont eliquis - BNP elevated, chest CT pending, echo showed mildly to mod reduced LV function - continue lasix IV, monitor daily weights, lytes, Cr - Cr improving, wt down with diuresis
--- NOTE | 2018-08-23 11:23 | PN ---
Progress Note (short form) - Note Progress Note: CBC, BMP 08/23/18 06:22 08/23/18 06:22 Microbiology 08/21/18 18:28 Blood - Peripheral Venous Blood Culture - Preliminary NO GROWTH OBTAINED AFTER 24 HOURS, INCUBATION TO CONTINUE FOR 4 DAYS. 08/21/18 18:20 Blood - Peripheral Venous Blood Culture - Preliminary NO GROWTH OBTAINED AFTER 24 HOURS, INCUBATION TO CONTINUE FOR 4 DAYS. 08/19/18 13:18 Blood - Peripheral Venous Blood Culture - Preliminary NO GROWTH OBTAINED AFTER 72 HOURS, INCUBATION TO CONTINUE FOR 2 DAYS. 08/19/18 13:18 Blood - Peripheral Venous Blood Culture - Preliminary NO GROWTH OBTAINED AFTER 72 HOURS, INCUBATION TO CONTINUE FOR 2 DAYS. S1 s2 irreg.irreg, tachy 90-109 lungs rales at bases, little better than yesterday abd soft but distended no edema awake alert but very weak, oriented to place and person, little more alert today 88 yo lady h/o Afib/PPM/CHF/brerast CA/IDDM admitted for nausea/vomiting/fever and chills PNA on chest xray, awaiting CT reading UTI sepsis PUlmonary edema Rapid afib-rate better FRANDY better today cont iv diuresis daily weights iv abx PT once better f/up on cultures
--- NOTE | 2018-08-23 11:38 | PN ---
Progress Note, Physician History of Present Illness: Pt seen and examined at bedside. her breathing is improved. - Current Medication List Current Medications: Active Medications Acetaminophen (Tylenol -) 650 mg PO Q6H PRN PRN Reason: PAIN Last Admin: 08/22/18 18:17 Dose: 650 mg Apixaban (Eliquis -) 2.5 mg PO BID [facility] Last Admin: 08/23/18 10:06 Dose: 2.5 mg Atorvastatin Calcium (Lipitor -) 10 mg PO HS [facility] Last Admin: 08/22/18 21:05 Dose: 10 mg Furosemide (Lasix Injection -) 40 mg IVPUSH BID@0600,1400 [facility] Last Admin: 08/23/18 06:18 Dose: 40 mg Meropenem 500 mg/ Dextrose 100 mls @ 200 mls/hr IVPB Q8H-IV [facility] Last Admin: 08/23/18 10:04 Dose: 200 mls/hr Insulin Aspart (Novolog Mix 70/30 Vial) 40 units SQ BIDAC [facility] Last Admin: 08/23/18 06:18 Dose: 40 units Insulin Aspart (Novolog Vial Sliding Scale -) 1 vial SQ ACHS [facility]; Protocol Last Admin: 08/23/18 06:17 Dose: Not Given Lactobacillus Acidophilus (Bacid -) 1 tab PO DAILY [facility] Last Admin: 08/23/18 10:07 Dose: 1 tab Levothyroxine Sodium (Synthroid -) 50 mcg PO DAILY@0700 [facility] Last Admin: 08/23/18 06:19 Dose: 50 mcg Metoprolol Succinate (Toprol Xl -) 50 mg PO BID [facility] Last Admin: 08/23/18 10:06 Dose: 50 mg Metoprolol Tartrate (Lopressor Injection -) 5 mg IVPUSH Q4H PRN PRN Reason: HYPERTENSION Nystatin (Mycostatin Cream -) 1 applic TP BID [facility] Last Admin: 08/23/18 10:06 Dose: 1 applic Ondansetron HCl (Zofran Injection) 4 mg IVPUSH Q6H PRN PRN Reason: NAUSEA AND/OR VOMITING Last Admin: 08/20/18 15:39 Dose: 4 mg Potassium Chloride (K-Dur -) 10 meq PO BID [facility] Last Admin: 08/23/18 10:06 Dose: 10 meq - Objective Vital Signs: Vital Signs Temperature 98.7 F 08/23/18 06:00 Pulse Rate 86 08/23/18 10:03 Respiratory Rate 18 08/23/18 10:03 Blood Pressure 114/54 L 08/23/18 10:03 O2 Sat by Pulse Oximetry (%) 96 08/23/18 09:00 Constitutional: Yes: Calm Eyes: Yes: Conjunctiva Clear Cardiovascular: Yes: S1, S2 Respiratory: Yes: On Nasal O2, Wheezes Gastrointestinal: Yes: Soft Genitourinary: Yes: Diaz Present Musculoskeletal: Yes: Muscle Weakness Extremities: Yes: WNL Edema: Yes Neurological: Yes: Oriented Labs: CBC, BMP 08/23/18 06:22 08/23/18 06:22 INR, PTT INR 1.07 (0.83-1.09) 08/19/18 13:35 Problem List - Problems (1) Urinary tract infection Code(s): N39.0 - URINARY TRACT INFECTION, SITE NOT SPECIFIED (2) Acute renal failure Code(s): N17.9 - ACUTE KIDNEY FAILURE, UNSPECIFIED Qualifiers: Acute renal failure type: unspecified Qualified Code(s): N17.9 - Acute kidney failure, unspecified Assessment/Plan Current Medications Generic Name Dose Route Start Last Admin Trade Name Freq PRN Reason Stop Dose Admin Acetaminophen 650 mg 08/19/18 17:23 08/22/18 18:17 Tylenol - PO 650 mg Q6H PRN Administration PAIN Apixaban 2.5 mg 08/19/18 22:00 08/23/18 10:06 Eliquis - PO 2.5 mg BID [facility] Administration Atorvastatin Calcium 10 mg 08/19/18 22:00 08/22/18 21:05 Lipitor - PO 10 mg HS [facility] Administration Furosemide 40 mg 08/20/18 14:24 08/23/18 06:18 Lasix Injection - IVPUSH 40 mg BID@0600,1400 [facility] Administration Meropenem 500 mg/ Dextrose 100 mls @ 200 mls/hr 08/21/18 11:30 08/23/18 10:04 IVPB 200 mls/hr Q8H-IV [facility] Administration Insulin Aspart 40 units 08/20/18 07:00 08/23/18 06:18 Novolog Mix 70/30 Vial SQ 40 units BIDAC [facility] Administration Insulin Aspart 1 vial 08/19/18 22:00 08/23/18 06:17 Novolog Vial Sliding Scale - SQ Not Given ACHS [facility] Protocol Lactobacillus Acidophilus 1 tab 08/20/18 10:00 08/23/18 10:07 Bacid - PO 1 tab DAILY [facility] Administration Levothyroxine Sodium 50 mcg 08/20/18 07:00 08/23/18 06:19 Synthroid - PO 50 mcg DAILY@0700 [facility] Administration Metoprolol Succinate 50 mg 08/22/18 10:45 08/23/18 10:06 Toprol Xl - PO 50 mg BID [facility] Administration Metoprolol Tartrate 5 mg 08/21/18 13:00 Lopressor Injection - IVPUSH Q4H PRN HYPERTENSION Nystatin 1 applic 08/19/18 14:00 08/23/18 10:06 Mycostatin Cream - TP 1 applic BID [facility] Administration Ondansetron HCl 4 mg 08/20/18 14:19 08/20/18 15:39 Zofran Injection IVPUSH 4 mg Q6H PRN Administration NAUSEA AND/OR VOMITING Potassium Chloride 10 meq 08/19/18 22:00 08/23/18 10:06 K-Dur - PO 10 meq BID [facility] Administration Laboratory Tests 08/22/18 08/22/18 18:09 18:09 Urine Protein 1+ H Urine Blood 2+ H Urine WBC (Auto) 5 Urine Eosinophils Pending Impression 1. FRANDY 2. UTI 3. a-fib 4. CHF 5. hx of HTN 6. PNA 7. sepsis Plan - renal function is improving - cont lasix - repeat labs in am - follow renal ultrasound - avoid hypotension
--- NOTE | 2018-08-23 12:37 | PN ---
Progress Note, Physician History of Present Illness: PULMONARY MORE ALERT TODAY ANSWERS QUESTIONS. PT C/O SOB,-CP,-COUGH. REMAINS FEBRILE - Current Medication List Current Medications: Active Medications Acetaminophen (Tylenol -) 650 mg PO Q6H PRN PRN Reason: PAIN Last Admin: 08/22/18 18:17 Dose: 650 mg Apixaban (Eliquis -) 2.5 mg PO BID [facility] Last Admin: 08/23/18 10:06 Dose: 2.5 mg Atorvastatin Calcium (Lipitor -) 10 mg PO HS [facility] Last Admin: 08/22/18 21:05 Dose: 10 mg Furosemide (Lasix Injection -) 40 mg IVPUSH BID@0600,1400 [facility] Last Admin: 08/23/18 06:18 Dose: 40 mg Meropenem 500 mg/ Dextrose 100 mls @ 200 mls/hr IVPB Q8H-IV [facility] Last Admin: 08/23/18 10:04 Dose: 200 mls/hr Insulin Aspart (Novolog Mix 70/30 Vial) 40 units SQ BIDAC [facility] Last Admin: 08/23/18 06:18 Dose: 40 units Insulin Aspart (Novolog Vial Sliding Scale -) 1 vial SQ ACHS [facility]; Protocol Last Admin: 08/23/18 06:17 Dose: Not Given Lactobacillus Acidophilus (Bacid -) 1 tab PO DAILY [facility] Last Admin: 08/23/18 10:07 Dose: 1 tab Levothyroxine Sodium (Synthroid -) 50 mcg PO DAILY@0700 [facility] Last Admin: 08/23/18 06:19 Dose: 50 mcg Metoprolol Succinate (Toprol Xl -) 50 mg PO BID [facility] Last Admin: 08/23/18 10:06 Dose: 50 mg Metoprolol Tartrate (Lopressor Injection -) 5 mg IVPUSH Q4H PRN PRN Reason: HYPERTENSION Nystatin (Mycostatin Cream -) 1 applic TP BID [facility] Last Admin: 08/23/18 10:06 Dose: 1 applic Ondansetron HCl (Zofran Injection) 4 mg IVPUSH Q6H PRN PRN Reason: NAUSEA AND/OR VOMITING Last Admin: 08/20/18 15:39 Dose: 4 mg Potassium Chloride (K-Dur -) 10 meq PO BID [facility] Last Admin: 08/23/18 10:06 Dose: 10 meq - Objective Vital Signs: Vital Signs Temperature 101.7 F H 08/23/18 12:02 Pulse Rate 86 08/23/18 10:03 Respiratory Rate 18 08/23/18 10:03 Blood Pressure 114/54 L 08/23/18 10:03 O2 Sat by Pulse Oximetry (%) 96 08/23/18 09:00 Constitutional: Yes: Well Nourished, Calm Eyes: Yes: WNL HENT: Yes: WNL Neck: Yes: WNL Cardiovascular: Yes: Pulse Irregular, S1, S2 Respiratory: Yes: Diminished, Rales (BILATERAL CRACKLES) Gastrointestinal: Yes: Normal Bowel Sounds, Soft Extremities: Yes: WNL Edema: No Labs: CBC, BMP 08/23/18 06:22 08/23/18 06:22 INR, PTT INR 1.07 (0.83-1.09) 08/19/18 13:35 Problem List - Problems (1) Acute hypoxemic respiratory failure Code(s): J96.01 - ACUTE RESPIRATORY FAILURE WITH HYPOXIA (2) Urinary tract infection Code(s): N39.0 - URINARY TRACT INFECTION, SITE NOT SPECIFIED (3) Acute renal failure Code(s): N17.9 - ACUTE KIDNEY FAILURE, UNSPECIFIED Qualifiers: Acute renal failure type: unspecified Qualified Code(s): N17.9 - Acute kidney failure, unspecified (4) Altered mental status Code(s): R41.82 - ALTERED MENTAL STATUS, UNSPECIFIED Qualifiers: Altered mental status type: unspecified Qualified Code(s): R41.82 - Altered mental status, unspecified (5) Arrhythmia Code(s): I49.9 - CARDIAC ARRHYTHMIA, UNSPECIFIED (6) Diabetes mellitus Code(s): E11.9 - TYPE 2 DIABETES MELLITUS WITHOUT COMPLICATIONS (7) Hypertension Code(s): I10 - ESSENTIAL (PRIMARY) HYPERTENSION (8) Hypothyroidism Code(s): E03.9 - HYPOTHYROIDISM, UNSPECIFIED (9) Metabolic encephalopathy Code(s): G93.41 - METABOLIC ENCEPHALOPATHY (10) Paroxysmal atrial fibrillation Code(s): I48.0 - PAROXYSMAL ATRIAL FIBRILLATION (11) Pneumonia Code(s): J18.9 - PNEUMONIA, UNSPECIFIED ORGANISM (12) Sepsis Code(s): A41.9 - SEPSIS, UNSPECIFIED ORGANISM (13) Acute on chronic diastolic CHF (congestive heart failure) Code(s): I50.33 - ACUTE ON CHRONIC DIASTOLIC (CONGESTIVE) HEART FAILURE (14) CHF (congestive heart failure) Code(s): I50.9 - HEART FAILURE, UNSPECIFIED Qualifiers: Heart failure type: systolic (15) Acute kidney failure Code(s): N17.9 - ACUTE KIDNEY FAILURE, UNSPECIFIED (16) Afib Code(s): I48.91 - UNSPECIFIED ATRIAL FIBRILLATION Assessment/Plan IMP ACUTE HYPOXEMIC RESPIRATORY FAILURE ACUTE ON CHRONIC CHF SEPSIS ?,PNEUMONIA AFIB PULMONARY HTN FRANDY IDDM HTN ALTERED MENTAL STATUS LIKELY TOXIC- METABOLIC ENCEPHALOPATHY THROMBOCYTOPENIA PLAN LASIX O2 STRICT I+OS MONITOR LYTES,RENAL FUNCTION,CBC,PLTCT CULTURES AC ABX PER ID MONITOR O2 SATS ABG F/U CHEST X-RAYS DR HOUSE
[2018-08-23] MEDS ORDERED: ACETAMINOPHEN 650 MG SUPP.RECT PR PRN (12:54)
[2018-08-23 14:22] LABS: ARTERIAL BLD GAS O2 SATURATION 95.7 % (95-98); ARTERIAL BLOOD GAS BASE EXCESS 2.7 meq/l (-2-2); ARTERIAL BLOOD GAS PCO2 30.6 mmHg (35-45); ARTERIAL BLOOD GAS PO2 73.2 mmHg (80-105); ARTERIAL BLOOD GAS pH 7.52 (7.35-7.45)
[2018-08-23 14:29] LABS: ALLENS TEST POSITIVE
--- NOTE | 2018-08-23 20:02 | PN ---
Progress Note, Physician History of Present Illness: AWAKE, RESPONSIVE PERSISTANT FEVER NOTED\OFFERS NO COMPLAINTS REPEAT BC PRELIM NO GROWTH - Current Medication List Current Medications: Active Medications Acetaminophen (Tylenol Suppository -) 650 mg CO Q6H PRN PRN Reason: FEVER Last Admin: 08/23/18 13:00 Dose: 650 mg Apixaban (Eliquis -) 2.5 mg PO BID [facility] Last Admin: 08/23/18 10:06 Dose: 2.5 mg Atorvastatin Calcium (Lipitor -) 10 mg PO HS [facility] Last Admin: 08/22/18 21:05 Dose: 10 mg Furosemide (Lasix Injection -) 40 mg IVPUSH BID@0600,1400 [facility] Last Admin: 08/23/18 15:30 Dose: 40 mg Meropenem 500 mg/ Dextrose 100 mls @ 200 mls/hr IVPB Q8H-IV [facility] Last Admin: 08/23/18 17:43 Dose: 200 mls/hr Insulin Aspart (Novolog Mix 70/30 Vial) 40 units SQ BIDAC [facility] Last Admin: 08/23/18 17:13 Dose: Not Given Insulin Aspart (Novolog Vial Sliding Scale -) 1 vial SQ ACHS [facility]; Protocol Last Admin: 08/23/18 17:12 Dose: Not Given Lactobacillus Acidophilus (Bacid -) 1 tab PO DAILY [facility] Last Admin: 08/23/18 10:07 Dose: 1 tab Levothyroxine Sodium (Synthroid -) 50 mcg PO DAILY@0700 [facility] Last Admin: 08/23/18 06:19 Dose: 50 mcg Metoprolol Succinate (Toprol Xl -) 50 mg PO BID [facility] Last Admin: 08/23/18 10:06 Dose: 50 mg Metoprolol Tartrate (Lopressor Injection -) 5 mg IVPUSH Q4H PRN PRN Reason: HYPERTENSION Nystatin (Mycostatin Cream -) 1 applic TP BID [facility] Last Admin: 08/23/18 10:06 Dose: 1 applic Ondansetron HCl (Zofran Injection) 4 mg IVPUSH Q6H PRN PRN Reason: NAUSEA AND/OR VOMITING Last Admin: 08/20/18 15:39 Dose: 4 mg Potassium Chloride (K-Dur -) 10 meq PO BID [facility] Last Admin: 08/23/18 10:06 Dose: 10 meq - Objective Vital Signs: Vital Signs Temperature 100 F H 08/23/18 19:38 Pulse Rate 90 08/23/18 19:38 Respiratory Rate 18 08/23/18 19:38 Blood Pressure 122/62 08/23/18 19:38 O2 Sat by Pulse Oximetry (%) 96 08/23/18 19:38 Constitutional: Yes: No Distress Cardiovascular: Yes: Regular Rate and Rhythm, S1, S2 Respiratory: Yes: CTA Bilaterally Gastrointestinal: Yes: Normal Bowel Sounds, Soft Labs: CBC, BMP 08/23/18 06:22 08/23/18 06:22 INR, PTT INR 1.07 (0.83-1.09) 08/19/18 13:35 Assessment/Plan UTI R/O SEPSIS SECONDARY TO PNEUMONIA CHF V. PNEUMONIA TOXIC METABOLIC ENCEPHALOPATHY AZOTEMIA LACTIC ACIDOSIS- RESOLVED CONTINUE MEROPENEM ADD VANCOMYCIN 1GM Q24H
[2018-08-23] MEDS: VANCOMYCIN 1 GRAM (PRE-DOCKED) 1,000 MG/250 ML BAG IVPB SCH (20:54)
[2018-08-23] MEDS: ATORVASTATIN CA 10 MG TABLET (FP) PO SCH (21:19)
[2018-08-24] MEDS: MEROPENEM 500 MG in DEXTROSE 5%-WATER 100 ML IVPB SCH ×3 (00:59→17:28)
[2018-08-24] MEDS: INSULIN SLIDING SCALE (NOVOLOG) 1 VIAL SQ SCH ×4 (06:43→22:27)
[2018-08-24] MEDS: FUROSEMIDE 40 MG/4 ML INJECTABLE VIAL IVPUSH SCH (06:43)
[2018-08-24] MEDS: LEVOTHYROXINE NA 50 MCG TABLET (FP) PO SCH (06:43)
[2018-08-24] MEDS: INSULIN (NOVOLOG MIX 70/30) 100 UNITS/ML MDV SQ SCH ×2 (07:14→17:39)
[2018-08-24 07:59] LABS: BASO % 0.3 % (0-2.0); EOS % 0.1 % (0-4.5); HEMATOCRIT 32.6 % (32.4-45.2); LYMPH % 17.9 % (8-40); MCH 29.7 pg (25.7-33.7); MCHC 33.8 g/dl (32.0-36.0); MEAN CELL VOLUME 87.7 fl (80-96); NEUT % 72.7 % (42.8-82.8); RBC 3.72 M/mm3 (3.60-5.2); RDW 14.7 % (11.6-15.6); WHITE BLOOD COUNT 6.5 K/mm3 (4.0-10.0)
[2018-08-24 08:27] LABS: BLOOD UREA NITROGEN 57.6 mg/dL (7-18); CREATININE 1.7 mg/dL (0.55-1.3); POTASSIUM 3.9 mmol/L (3.5-5.1)
[2018-08-24 08:40] LABS: PLATELET COUNT 63 K/MM3 (134-434)
[2018-08-24] MEDS ORDERED: PT OWN MED DRAWER 7, Y5N ONE ×2 (08:53→22:36)
--- NOTE | 2018-08-24 09:07 | PN ---
Progress Note, Physician History of Present Illness: PULMONARY AWAKE,ALERT,NO DISTRESS,-SOB. AFEBRILE - Current Medication List Current Medications: Active Medications Acetaminophen (Tylenol Suppository -) 650 mg OR Q6H PRN PRN Reason: FEVER Last Admin: 08/23/18 13:00 Dose: 650 mg Apixaban (Eliquis -) 2.5 mg PO BID [facility] Last Admin: 08/23/18 21:19 Dose: 2.5 mg Atorvastatin Calcium (Lipitor -) 10 mg PO HS [facility] Last Admin: 08/23/18 21:19 Dose: 10 mg Furosemide (Lasix Injection -) 40 mg IVPUSH BID@0600,1400 [facility] Last Admin: 08/24/18 06:43 Dose: 40 mg Meropenem 500 mg/ Dextrose 100 mls @ 200 mls/hr IVPB Q8H-IV [facility] Last Admin: 08/24/18 00:59 Dose: 200 mls/hr Vancomycin HCl (Vancomycin (Pre-Docked)) 1,000 mg in 250 mls @ 200 mls/hr IVPB Q24H [facility]; Protocol Last Admin: 08/23/18 20:54 Dose: 200 mls/hr Insulin Aspart (Novolog Mix 70/30 Vial) 40 units SQ BIDAC [facility] Last Admin: 08/24/18 07:14 Dose: 40 units Insulin Aspart (Novolog Vial Sliding Scale -) 1 vial SQ ACHS [facility]; Protocol Last Admin: 08/24/18 06:43 Dose: 4 units Lactobacillus Acidophilus (Bacid -) 1 tab PO DAILY [facility] Last Admin: 08/23/18 10:07 Dose: 1 tab Levothyroxine Sodium (Synthroid -) 50 mcg PO DAILY@0700 [facility] Last Admin: 08/24/18 06:43 Dose: 50 mcg Metoprolol Succinate (Toprol Xl -) 50 mg PO BID [facility] Last Admin: 08/23/18 21:20 Dose: 50 mg Metoprolol Tartrate (Lopressor Injection -) 5 mg IVPUSH Q4H PRN PRN Reason: HYPERTENSION Nystatin (Mycostatin Cream -) 1 applic TP BID [facility] Last Admin: 08/23/18 21:20 Dose: 1 applic Ondansetron HCl (Zofran Injection) 4 mg IVPUSH Q6H PRN PRN Reason: NAUSEA AND/OR VOMITING Last Admin: 08/20/18 15:39 Dose: 4 mg Potassium Chloride (K-Dur -) 10 meq PO BID [facility] Last Admin: 08/23/18 21:19 Dose: 10 meq - Objective Vital Signs: Vital Signs Temperature 98.9 F 08/24/18 06:00 Pulse Rate 74 08/24/18 06:00 Respiratory Rate 20 08/24/18 08:08 Blood Pressure 100/58 L 08/24/18 06:00 O2 Sat by Pulse Oximetry (%) 96 08/24/18 08:08 Constitutional: Yes: Well Nourished, Calm Eyes: Yes: WNL HENT: Yes: WNL Neck: Yes: WNL Cardiovascular: Yes: Pulse Irregular, S1, S2 Respiratory: Yes: Rales (BILATERAL CRACKLES) Gastrointestinal: Yes: Normal Bowel Sounds, Soft Extremities: Yes: WNL Edema: Yes Labs: CBC, BMP 08/24/18 07:04 08/24/18 07:04 INR, PTT INR 1.07 (0.83-1.09) 08/19/18 13:35 Laboratory Tests 08/23/18 14:00 ABG pH 7.52 H ABG pCO2 at Pt Temp 30.6 L ABG pO2 at Pt Temp 73.2 L ABG HCO3 24.9 ABG O2 Sat (Measured) 95.7 Problem List - Problems (1) Acute hypoxemic respiratory failure Code(s): J96.01 - ACUTE RESPIRATORY FAILURE WITH HYPOXIA (2) Urinary tract infection Code(s): N39.0 - URINARY TRACT INFECTION, SITE NOT SPECIFIED (3) Acute renal failure Code(s): N17.9 - ACUTE KIDNEY FAILURE, UNSPECIFIED Qualifiers: Acute renal failure type: unspecified Qualified Code(s): N17.9 - Acute kidney failure, unspecified (4) Altered mental status Code(s): R41.82 - ALTERED MENTAL STATUS, UNSPECIFIED Qualifiers: Altered mental status type: unspecified Qualified Code(s): R41.82 - Altered mental status, unspecified (5) Arrhythmia Code(s): I49.9 - CARDIAC ARRHYTHMIA, UNSPECIFIED (6) Diabetes mellitus Code(s): E11.9 - TYPE 2 DIABETES MELLITUS WITHOUT COMPLICATIONS (7) Hypertension Code(s): I10 - ESSENTIAL (PRIMARY) HYPERTENSION (8) Hypothyroidism Code(s): E03.9 - HYPOTHYROIDISM, UNSPECIFIED (9) Metabolic encephalopathy Code(s): G93.41 - METABOLIC ENCEPHALOPATHY (10) Paroxysmal atrial fibrillation Code(s): I48.0 - PAROXYSMAL ATRIAL FIBRILLATION (11) Pneumonia Code(s): J18.9 - PNEUMONIA, UNSPECIFIED ORGANISM (12) Sepsis Code(s): A41.9 - SEPSIS, UNSPECIFIED ORGANISM (13) Acute on chronic diastolic CHF (congestive heart failure) Code(s): I50.33 - ACUTE ON CHRONIC DIASTOLIC (CONGESTIVE) HEART FAILURE (14) CHF (congestive heart failure) Code(s): I50.9 - HEART FAILURE, UNSPECIFIED Qualifiers: Heart failure type: systolic (15) Acute kidney failure Code(s): N17.9 - ACUTE KIDNEY FAILURE, UNSPECIFIED (16) Afib Code(s): I48.91 - UNSPECIFIED ATRIAL FIBRILLATION Assessment/Plan IMP ACUTE HYPOXEMIC RESPIRATORY FAILURE ACUTE ON CHRONIC CHF SEPSIS ?,PNEUMONIA AFIB PULMONARY HTN FRANDY IDDM HTN ALTERED MENTAL STATUS LIKELY TOXIC- METABOLIC ENCEPHALOPATHY CLINICALLY IMPROVING THROMBOCYTOPENIA PLAN LASIX O2 STRICT I+OS MONITOR LYTES,RENAL FUNCTION,CBC,PLTCT AC ABX PER ID MONITOR O2 SATS F/U CHEST X-RAYS DR HOUSE
--- NOTE | 2018-08-24 09:15 | PN ---
Progress Note, Physician Chief Complaint: sleeping, comfortable. Woke her up She denies CP, SOB, palps. Platelets are dropping History of Present Illness: TELE: Paced - Current Medication List Current Medications: Active Medications Acetaminophen (Tylenol Suppository -) 650 mg SD Q6H PRN PRN Reason: FEVER Last Admin: 08/23/18 13:00 Dose: 650 mg Apixaban (Eliquis -) 2.5 mg PO BID [facility] Last Admin: 08/23/18 21:19 Dose: 2.5 mg Atorvastatin Calcium (Lipitor -) 10 mg PO HS [facility] Last Admin: 08/23/18 21:19 Dose: 10 mg Furosemide (Lasix Injection -) 40 mg IVPUSH BID@0600,1400 [facility] Last Admin: 08/24/18 06:43 Dose: 40 mg Meropenem 500 mg/ Dextrose 100 mls @ 200 mls/hr IVPB Q8H-IV [facility] Last Admin: 08/24/18 00:59 Dose: 200 mls/hr Vancomycin HCl (Vancomycin (Pre-Docked)) 1,000 mg in 250 mls @ 200 mls/hr IVPB Q24H [facility]; Protocol Last Admin: 08/23/18 20:54 Dose: 200 mls/hr Insulin Aspart (Novolog Mix 70/30 Vial) 40 units SQ BIDAC [facility] Last Admin: 08/24/18 07:14 Dose: 40 units Insulin Aspart (Novolog Vial Sliding Scale -) 1 vial SQ ACHS [facility]; Protocol Last Admin: 08/24/18 06:43 Dose: 4 units Lactobacillus Acidophilus (Bacid -) 1 tab PO DAILY [facility] Last Admin: 08/23/18 10:07 Dose: 1 tab Levothyroxine Sodium (Synthroid -) 50 mcg PO DAILY@0700 [facility] Last Admin: 08/24/18 06:43 Dose: 50 mcg Metoprolol Succinate (Toprol Xl -) 50 mg PO BID [facility] Last Admin: 08/23/18 21:20 Dose: 50 mg Metoprolol Tartrate (Lopressor Injection -) 5 mg IVPUSH Q4H PRN PRN Reason: HYPERTENSION Nystatin (Mycostatin Cream -) 1 applic TP BID [facility] Last Admin: 08/23/18 21:20 Dose: 1 applic Ondansetron HCl (Zofran Injection) 4 mg IVPUSH Q6H PRN PRN Reason: NAUSEA AND/OR VOMITING Last Admin: 08/20/18 15:39 Dose: 4 mg Potassium Chloride (K-Dur -) 10 meq PO BID [facility] Last Admin: 08/23/18 21:19 Dose: 10 meq - Objective Vital Signs: Vital Signs Temperature 98.9 F 08/24/18 06:00 Pulse Rate 74 08/24/18 06:00 Respiratory Rate 20 08/24/18 08:08 Blood Pressure 100/58 L 08/24/18 06:00 O2 Sat by Pulse Oximetry (%) 96 08/24/18 08:08 Constitutional: Yes: Calm Cardiovascular: Yes: Regular Rate and Rhythm Respiratory: Yes: Other (bibasilar rales.) Gastrointestinal: Yes: Soft Edema: No Neurological: Yes: Alert, Oriented ...Motor Strength: WNL Labs: CBC, BMP 08/24/18 07:04 08/24/18 07:04 INR, PTT INR 1.07 (0.83-1.09) 08/19/18 13:35 Microbiology 08/19/18 14:00 Urine - Urine Clean Catch Urine Culture - Final Enterobacter Aerogenes Laboratory Tests 08/19/18 08/24/18 08/24/18 13:35 07:04 07:04 WBC 7.1 6.5 Hgb 12.4 11.0 Plt Count 224 63 L Sodium 137 Potassium 3.9 BUN 57.6 H Creatinine 1.7 H - ....Imaging EKG: Image Reviewed Assessment/Plan IMP: 1. UTI 2. Possible PNA 3. PAF s/p PPM, on NOAC 4. Suspected component of acute on chronic diastolic CHF 5. Thrombocytopenia REC: - manage UTI, PNA per primary - rates improved on increased metprolol dose, continue. Dig loaded with good effect (1mg). Does not seem to required standing dig- suspect RALF was driven by initial sepsis/fever. -Thrombocytopenia noted (infection, ?abx effect)/ may need to hold Eliquis of dip < 50K - BNP elevated, chest CT pending, echo showed mildly to mod reduced LV function - continue lasix IV, monitor daily weights, lytes, Cr - Cr improving, wt down with diuresis. D/w renal
--- NOTE | 2018-08-24 09:15 | PN ---
Progress Note, Physician History of Present Illness: Pt seen and examined at bedside. She is much more awake and alert today. She feels that her breathing is much improved. She is now using nasal canula. - Current Medication List Current Medications: Active Medications Acetaminophen (Tylenol Suppository -) 650 mg IN Q6H PRN PRN Reason: FEVER Last Admin: 08/23/18 13:00 Dose: 650 mg Apixaban (Eliquis -) 2.5 mg PO BID [facility] Last Admin: 08/23/18 21:19 Dose: 2.5 mg Atorvastatin Calcium (Lipitor -) 10 mg PO HS [facility] Last Admin: 08/23/18 21:19 Dose: 10 mg Furosemide (Lasix Injection -) 40 mg IVPUSH BID@0600,1400 [facility] Last Admin: 08/24/18 06:43 Dose: 40 mg Meropenem 500 mg/ Dextrose 100 mls @ 200 mls/hr IVPB Q8H-IV [facility] Last Admin: 08/24/18 00:59 Dose: 200 mls/hr Vancomycin HCl (Vancomycin (Pre-Docked)) 1,000 mg in 250 mls @ 200 mls/hr IVPB Q24H [facility]; Protocol Last Admin: 08/23/18 20:54 Dose: 200 mls/hr Insulin Aspart (Novolog Mix 70/30 Vial) 40 units SQ BIDAC [facility] Last Admin: 08/24/18 07:14 Dose: 40 units Insulin Aspart (Novolog Vial Sliding Scale -) 1 vial SQ ACHS [facility]; Protocol Last Admin: 08/24/18 06:43 Dose: 4 units Lactobacillus Acidophilus (Bacid -) 1 tab PO DAILY [facility] Last Admin: 08/23/18 10:07 Dose: 1 tab Levothyroxine Sodium (Synthroid -) 50 mcg PO DAILY@0700 [facility] Last Admin: 08/24/18 06:43 Dose: 50 mcg Metoprolol Succinate (Toprol Xl -) 50 mg PO BID [facility] Last Admin: 08/23/18 21:20 Dose: 50 mg Metoprolol Tartrate (Lopressor Injection -) 5 mg IVPUSH Q4H PRN PRN Reason: HYPERTENSION Nystatin (Mycostatin Cream -) 1 applic TP BID [facility] Last Admin: 08/23/18 21:20 Dose: 1 applic Ondansetron HCl (Zofran Injection) 4 mg IVPUSH Q6H PRN PRN Reason: NAUSEA AND/OR VOMITING Last Admin: 08/20/18 15:39 Dose: 4 mg Potassium Chloride (K-Dur -) 10 meq PO BID [facility] Last Admin: 08/23/18 21:19 Dose: 10 meq - Objective Vital Signs: Vital Signs Temperature 98.9 F 08/24/18 06:00 Pulse Rate 74 08/24/18 06:00 Respiratory Rate 20 08/24/18 08:08 Blood Pressure 100/58 L 08/24/18 06:00 O2 Sat by Pulse Oximetry (%) 96 08/24/18 08:08 Constitutional: Yes: Calm Eyes: Yes: Conjunctiva Clear HENT: Yes: Atraumatic Neck: Yes: Supple Cardiovascular: Yes: S1, S2 Respiratory: Yes: On Nasal O2, Rhonchi Gastrointestinal: Yes: Soft Genitourinary: Yes: WNL Musculoskeletal: Yes: WNL Edema: Yes Edema: LLE: Trace, RLE: Trace Neurological: Yes: Oriented Psychiatric: Yes: Oriented Labs: CBC, BMP 08/24/18 07:04 08/24/18 07:04 INR, PTT INR 1.07 (0.83-1.09) 08/19/18 13:35 Problem List - Problems (1) Urinary tract infection Code(s): N39.0 - URINARY TRACT INFECTION, SITE NOT SPECIFIED (2) Acute renal failure Code(s): N17.9 - ACUTE KIDNEY FAILURE, UNSPECIFIED Qualifiers: Acute renal failure type: unspecified Qualified Code(s): N17.9 - Acute kidney failure, unspecified Assessment/Plan Current Medications Generic Name Dose Route Start Last Admin Trade Name Janakq PRN Reason Stop Dose Admin Acetaminophen 650 mg 08/23/18 12:54 08/23/18 13:00 Tylenol Suppository - IN 650 mg Q6H PRN Administration FEVER Apixaban 2.5 mg 08/19/18 22:00 08/23/18 21:19 Eliquis - PO 2.5 mg BID [facility] Administration Atorvastatin Calcium 10 mg 08/19/18 22:00 08/23/18 21:19 Lipitor - PO 10 mg HS [facility] Administration Furosemide 40 mg 08/20/18 14:24 08/24/18 06:43 Lasix Injection - IVPUSH 40 mg BID@0600,1400 [facility] Administration Meropenem 500 mg/ Dextrose 100 mls @ 200 mls/hr 08/21/18 11:30 08/24/18 00:59 IVPB 200 mls/hr Q8H-IV [facility] Administration Vancomycin HCl 1,000 mg in 250 mls @ 200 mls/hr 08/23/18 20:15 08/23/18 20:54 Vancomycin (Pre-Docked) IVPB 200 mls/hr Q24H [facility] Administration Protocol Insulin Aspart 40 units 08/20/18 07:00 08/24/18 07:14 Novolog Mix 70/30 Vial SQ 40 units BIDAC [facility] Administration Insulin Aspart 1 vial 08/19/18 22:00 08/24/18 06:43 Novolog Vial Sliding Scale - SQ 4 units ACHS [facility] Administration Protocol Lactobacillus Acidophilus 1 tab 08/20/18 10:00 08/23/18 10:07 Bacid - PO 1 tab DAILY [facility] Administration Levothyroxine Sodium 50 mcg 08/20/18 07:00 08/24/18 06:43 Synthroid - PO 50 mcg DAILY@0700 [facility] Administration Metoprolol Succinate 50 mg 08/22/18 10:45 08/23/18 21:20 Toprol Xl - PO 50 mg BID [facility] Administration Metoprolol Tartrate 5 mg 08/21/18 13:00 Lopressor Injection - IVPUSH Q4H PRN HYPERTENSION Nystatin 1 applic 08/19/18 14:00 08/23/18 21:20 Mycostatin Cream - TP 1 applic BID [facility] Administration Ondansetron HCl 4 mg 08/20/18 14:19 08/20/18 15:39 Zofran Injection IVPUSH 4 mg Q6H PRN Administration NAUSEA AND/OR VOMITING Potassium Chloride 10 meq 08/19/18 22:00 08/23/18 21:19 K-Dur - PO 10 meq BID [facility] Administration Impression 1. FRANDY 2. UTI 3. a-fib 4. CHF 5. hx of HTN 6. PNA 7. sepsis Plan - cont to monitor renal function - consider switching lasix to PO dosing - cardiology follow up - renal ultrasound reviewed - avoid hypotension
[2018-08-24] MEDS: POTASSIUM CHLORIDE TABS 10 MEQ TABLET.ER (FP) PO SCH ×2 (09:16→22:26)
[2018-08-24] MEDS: APIXABAN 2.5 MG TABLET PO SCH ×2 (09:16→22:26)
[2018-08-24] MEDS: LACTOBACILLUS ACIDOPHILUS 1 TABLET PO SCH (09:16)
[2018-08-24] MEDS: NYSTATIN 100,000 UNIT/GM TOPICAL CREAM 15 GM TUBE TP SCH ×2 (09:21→22:26)
--- NOTE | 2018-08-24 10:51 | PN ---
Progress Note, Physician History of Present Illness: AWAKE, RESPONSIVE SUPINE IN BED OFFERS NO COMPLAINTS TEMPS LOWER GRADE BREATHING NON -LABORED REPEAT BC PRELIM NO GROWTH - Current Medication List Current Medications: Active Medications Acetaminophen (Tylenol Suppository -) 650 mg [place] Q6H PRN PRN Reason: FEVER Last Admin: 08/23/18 13:00 Dose: 650 mg Apixaban (Eliquis -) 2.5 mg PO BID [facility] Last Admin: 08/24/18 09:16 Dose: 2.5 mg Atorvastatin Calcium (Lipitor -) 10 mg PO HS [facility] Last Admin: 08/23/18 21:19 Dose: 10 mg Furosemide (Lasix Injection -) 40 mg IVPUSH DAILY [facility] Meropenem 500 mg/ Dextrose 100 mls @ 200 mls/hr IVPB Q8H-IV [facility] Last Admin: 08/24/18 09:16 Dose: 200 mls/hr Vancomycin HCl (Vancomycin (Pre-Docked)) 1,000 mg in 250 mls @ 200 mls/hr IVPB Q24H [facility]; Protocol Last Admin: 08/23/18 20:54 Dose: 200 mls/hr Insulin Aspart (Novolog Mix 70/30 Vial) 40 units SQ BIDAC [facility] Last Admin: 08/24/18 07:14 Dose: 40 units Insulin Aspart (Novolog Vial Sliding Scale -) 1 vial SQ ACHS [facility]; Protocol Last Admin: 08/24/18 06:43 Dose: 4 units Lactobacillus Acidophilus (Bacid -) 1 tab PO DAILY [facility] Last Admin: 08/24/18 09:16 Dose: 1 tab Levothyroxine Sodium (Synthroid -) 50 mcg PO DAILY@0700 [facility] Last Admin: 08/24/18 06:43 Dose: 50 mcg Metoprolol Succinate (Toprol Xl -) 50 mg PO BID [facility] Last Admin: 08/24/18 09:16 Dose: 50 mg Metoprolol Tartrate (Lopressor Injection -) 5 mg IVPUSH Q4H PRN PRN Reason: HYPERTENSION Nystatin (Mycostatin Cream -) 1 applic TP BID [facility] Last Admin: 08/24/18 09:21 Dose: 1 applic Ondansetron HCl (Zofran Injection) 4 mg IVPUSH Q6H PRN PRN Reason: NAUSEA AND/OR VOMITING Last Admin: 08/20/18 15:39 Dose: 4 mg Potassium Chloride (K-Dur -) 10 meq PO BID [facility] Last Admin: 08/24/18 09:16 Dose: 10 meq - Objective Vital Signs: Vital Signs Temperature 98.9 F 08/24/18 06:00 Pulse Rate 74 08/24/18 06:00 Respiratory Rate 20 08/24/18 08:08 Blood Pressure 100/58 L 08/24/18 06:00 O2 Sat by Pulse Oximetry (%) 96 08/24/18 08:08 Constitutional: Yes: No Distress Eyes: Yes: Conjunctiva Clear Cardiovascular: Yes: Regular Rate and Rhythm, S1, S2 Respiratory: Yes: Diminished Gastrointestinal: Yes: Normal Bowel Sounds, Soft. No: Tenderness Edema: No Labs: CBC, BMP 08/24/18 07:04 08/24/18 07:04 INR, PTT INR 1.07 (0.83-1.09) 08/19/18 13:35 Assessment/Plan UTI R/O SEPSIS SECONDARY TO PNEUMONIA CHF V. PNEUMONIA TOXIC METABOLIC ENCEPHALOPATHY AZOTEMIA LACTIC ACIDOSIS- RESOLVED CONTINUE MEROPENEM /VANCOMYCIN
--- NOTE | 2018-08-24 12:03 | PN ---
Progress Note, Physician Chief Complaint: she is better and had once vomited but no fever or abd pains no fever or chills she has no sob or cp - Current Medication List Current Medications: Active Medications Acetaminophen (Tylenol Suppository -) 650 mg [place] Q6H PRN PRN Reason: FEVER Last Admin: 08/23/18 13:00 Dose: 650 mg Apixaban (Eliquis -) 2.5 mg PO BID [facility] Last Admin: 08/24/18 09:16 Dose: 2.5 mg Atorvastatin Calcium (Lipitor -) 10 mg PO HS [facility] [place] Last Admin: 08/23/18 21:19 Dose: 10 mg Furosemide (Lasix Injection -) 40 mg IVPUSH DAILY [facility] [place] Meropenem 500 mg/ Dextrose 100 mls @ 200 mls/hr IVPB Q8H-IV [facility] Last Admin: 08/24/18 09:16 Dose: 200 mls/hr Vancomycin HCl (Vancomycin (Pre-Docked)) 1,000 mg in 250 mls @ 200 mls/hr IVPB Q24H [facility] [place]; Protocol Last Admin: 08/23/18 20:54 Dose: 200 mls/hr Insulin Aspart (Novolog Mix 70/30 Vial) 40 units SQ BIDAC [facility] [place] Last Admin: 08/24/18 07:14 Dose: 40 units Insulin Aspart (Novolog Vial Sliding Scale -) 1 vial SQ ACHS [facility] [place]; Protocol Last Admin: 08/24/18 06:43 Dose: 4 units Lactobacillus Acidophilus (Bacid -) 1 tab PO DAILY [facility] [place] Last Admin: 08/24/18 09:16 Dose: 1 tab Levothyroxine Sodium (Synthroid -) 50 mcg PO DAILY@0700 [facility] [place] Last Admin: 08/24/18 06:43 Dose: 50 mcg Metoprolol Succinate (Toprol Xl -) 50 mg PO BID [facility] [place] Last Admin: 08/24/18 09:16 Dose: 50 mg Metoprolol Tartrate (Lopressor Injection -) 5 mg IVPUSH Q4H PRN PRN Reason: HYPERTENSION Nystatin (Mycostatin Cream -) 1 applic TP BID [facility] [place] Last Admin: 08/24/18 09:21 Dose: 1 applic Ondansetron HCl (Zofran Injection) 4 mg IVPUSH Q6H PRN PRN Reason: NAUSEA AND/OR VOMITING Last Admin: 08/20/18 15:39 Dose: 4 mg Potassium Chloride (K-Dur -) 10 meq PO BID [facility] Last Admin: 08/24/18 09:16 Dose: 10 meq - Objective Vital Signs: Vital Signs Temperature 98.9 F 08/24/18 06:00 Pulse Rate 74 08/24/18 06:00 Respiratory Rate 20 08/24/18 08:08 Blood Pressure 100/58 L 08/24/18 06:00 O2 Sat by Pulse Oximetry (%) 96 08/24/18 08:08 Constitutional: Yes: Well Nourished, No Distress Eyes: Yes: Conjunctiva Clear HENT: Yes: WNL, Atraumatic Neck: Yes: WNL Cardiovascular: Yes: Pulse Irregular Respiratory: Yes: CTA Bilaterally Gastrointestinal: Yes: Normal Bowel Sounds Extremities: Yes: WNL Edema: No Neurological: Yes: WNL, Alert, Oriented Labs: CBC, BMP 08/24/18 07:04 08/24/18 07:04 INR, PTT INR 1.07 (0.83-1.09) 08/19/18 13:35 Problem List - Problems (1) Urinary tract infection Assessment/Plan: start on abx and she has been seen by ID Code(s): N39.0 - URINARY TRACT INFECTION, SITE NOT SPECIFIED (2) Arrhythmia Assessment/Plan: started on amiodarone and toprol and elequis bid Code(s): I49.9 - CARDIAC ARRHYTHMIA, UNSPECIFIED (3) Diabetes mellitus Assessment/Plan: insulin coverage, start on regular dose of 70/30 and advised to continue the meds Code(s): E11.9 - TYPE 2 DIABETES MELLITUS WITHOUT COMPLICATIONS (4) Hypertension Assessment/Plan: stable continue cozar and toprol Code(s): I10 - ESSENTIAL (PRIMARY) HYPERTENSION (5) Hypokalemia Code(s): E87.6 - HYPOKALEMIA (6) Hypothyroidism Code(s): E03.9 - HYPOTHYROIDISM, UNSPECIFIED Assessment/Plan 88 yo lady h/o Afib/PPM/CHF/brerast CA/IDDM admitted for nausea/vomiting/fever and chills PNA on chest xray, awaiting CT reading UTI sepsis PUlmonary edema improved Rapid afib-rate better FRANDY better today cont iv diuresis daily weights iv abx PT once better f/up on cultures
[2018-08-24] MEDS: ATORVASTATIN CA 10 MG TABLET (FP) PO SCH (22:26)
[2018-08-24] MEDS: VANCOMYCIN 1 GRAM (PRE-DOCKED) 1,000 MG/250 ML BAG IVPB SCH ×2 (22:54→22:55)
[2018-08-25] MEDS: MEROPENEM 500 MG in DEXTROSE 5%-WATER 100 ML IVPB SCH ×3 (02:30→18:01)
[2018-08-25] MEDS ORDERED: PT OWN MED DRAWER 7, Y5N ONE ×2 (03:44→07:42)
[2018-08-25 06:14] LABS: BASO % 0.4 % (0-2.0); EOS % 0.7 % (0-4.5); HEMATOCRIT 30.7 % (32.4-45.2); HEMOGLOBIN 10.5 GM/dL (10.7-15.3); LYMPH % 30.1 % (8-40); MCH 29.9 pg (25.7-33.7); MCHC 34.2 g/dl (32.0-36.0); MEAN CELL VOLUME 87.6 fl (80-96); MEAN PLT VOLUME 11.2 fl (7.5-11.1); MONO % 6.1 % (3.8-10.2); NEUT % 62.7 % (42.8-82.8); PLATELET COUNT 85 K/MM3 (134-434); RDW 14.3 % (11.6-15.6); WHITE BLOOD COUNT 10.6 K/mm3 (4.0-10.0)
[2018-08-25] MEDS: INSULIN SLIDING SCALE (NOVOLOG) 1 VIAL SQ SCH ×4 (06:15→21:21)
[2018-08-25] MEDS: INSULIN (NOVOLOG MIX 70/30) 100 UNITS/ML MDV SQ SCH ×2 (06:22→18:00)
[2018-08-25] MEDS: LEVOTHYROXINE NA 50 MCG TABLET (FP) PO SCH (06:23)
[2018-08-25 06:36] LABS: BLOOD UREA NITROGEN 49.7 mg/dL (7-18); CREATININE 1.2 mg/dL (0.55-1.3); POTASSIUM 3.9 mmol/L (3.5-5.1)
--- NOTE | 2018-08-25 08:48 | PN ---
Progress Note, Physician Chief Complaint: seen and examine on 4W Clinically improved Denies CP or SOB TELE: paced, no further RALF noted - Current Medication List Current Medications: Active Medications Acetaminophen (Tylenol Suppository -) 650 mg [place] Q6H PRN PRN Reason: FEVER Last Admin: 08/23/18 13:00 Dose: 650 mg Apixaban (Eliquis -) 2.5 mg PO BID [facility] Last Admin: 08/24/18 22:26 Dose: 2.5 mg Atorvastatin Calcium (Lipitor -) 10 mg PO HS [facility] Last Admin: 08/24/18 22:26 Dose: 10 mg Furosemide (Lasix Injection -) 40 mg IVPUSH DAILY [facility] Meropenem 500 mg/ Dextrose 100 mls @ 200 mls/hr IVPB Q8H-IV [facility] Last Admin: 08/25/18 02:30 Dose: 200 mls/hr Vancomycin HCl (Vancomycin (Pre-Docked)) 1,000 mg in 250 mls @ 200 mls/hr IVPB Q24H [facility]; Protocol Last Admin: 08/24/18 22:55 Dose: Not Given Insulin Aspart (Novolog Mix 70/30 Vial) 40 units SQ BIDAC [facility] Last Admin: 08/25/18 06:22 Dose: 40 units Insulin Aspart (Novolog Vial Sliding Scale -) 1 vial SQ ACHS [facility]; Protocol Last Admin: 08/25/18 06:15 Dose: Not Given Lactobacillus Acidophilus (Bacid -) 1 tab PO DAILY [facility] Last Admin: 08/24/18 09:16 Dose: 1 tab Levothyroxine Sodium (Synthroid -) 50 mcg PO DAILY@0700 [facility] Last Admin: 08/25/18 06:23 Dose: 50 mcg Metoprolol Succinate (Toprol Xl -) 50 mg PO BID [facility] Last Admin: 08/24/18 22:26 Dose: 50 mg Metoprolol Tartrate (Lopressor Injection -) 5 mg IVPUSH Q4H PRN PRN Reason: HYPERTENSION Nystatin (Mycostatin Cream -) 1 applic TP BID [facility] Last Admin: 08/24/18 22:26 Dose: 1 applic Ondansetron HCl (Zofran Injection) 4 mg IVPUSH Q6H PRN PRN Reason: NAUSEA AND/OR VOMITING Last Admin: 08/20/18 15:39 Dose: 4 mg Potassium Chloride (K-Dur -) 10 meq PO BID [facility] Last Admin: 08/24/18 22:26 Dose: 10 meq - Objective Vital Signs: Vital Signs Temperature 98.0 F 08/25/18 01:26 Pulse Rate 78 08/25/18 01:26 Respiratory Rate 20 08/25/18 08:04 Blood Pressure 120/53 L 08/25/18 01:26 O2 Sat by Pulse Oximetry (%) 97 08/25/18 08:04 Constitutional: Yes: Calm Cardiovascular: Yes: Regular Rate and Rhythm Respiratory: Yes: CTA Bilaterally Gastrointestinal: Yes: Soft Edema: No Peripheral Pulses WNL: Yes Neurological: Yes: Alert, Oriented Labs: CBC, BMP 08/25/18 05:16 08/25/18 05:16 INR, PTT INR 1.07 (0.83-1.09) 08/19/18 13:35 Laboratory Tests 08/25/18 08/25/18 05:16 05:16 WBC 10.6 H Hgb 10.5 L Plt Count 85 L D BUN 49.7 H Creatinine 1.2 Calcium 7.0 L - ....Imaging EKG: Image Reviewed Assessment/Plan IMP: 1. UTI 2. Possible PNA 3. PAF s/p PPM, on NOAC 4. Suspected component of acute on chronic diastolic CHF 5. Thrombocytopenia REC: - manage UTI, PNA per primary - rates improved on increased metprolol dose, continue. Dig loaded with good effect (1mg). Does not seem to required standing dig- suspect RALF was driven by initial sepsis/fever. -Thrombocytopenia noted (infection, ?abx effect)/ may need to hold Eliquis of dip < 50K, but seem to be improving. - BNP elevated, chest CT pending, echo showed mildly to mod reduced LV function - PO Lasix today -Discontinue telemetry
--- NOTE | 2018-08-25 08:50 | PN ---
Progress Note (short form) - Note Progress Note: CBC, BMP 08/25/18 05:16 08/25/18 05:16 Vital Signs Period Temp Pulse Resp BP Sys/Guerra Pulse Ox Last 24 Hr 98 F-99.0 F 67-95 18-20 108-144/53-86 96-97 S1 S2 RRR lungs scattered rales at bases, good air entry abd soft but distended no edema awake alert but very weak, oriented to place and person, little more alert today 88 yo lady h/o Afib/PPM/CHF/breast CA/IDDM PNA UTI sepsis PUlmonary edema -better Rapid afib-rate controlled FRANDY better Platelet better switch to po diuresis daily weights iv abx PT dc planning for STR next week
[2018-08-25] MEDS: LACTOBACILLUS ACIDOPHILUS 1 TABLET PO SCH (09:08)
[2018-08-25] MEDS: POTASSIUM CHLORIDE TABS 10 MEQ TABLET.ER (FP) PO SCH ×2 (09:08→21:21)
[2018-08-25] MEDS: APIXABAN 2.5 MG TABLET PO SCH ×2 (09:09→21:20)
[2018-08-25] MEDS: NYSTATIN POWDER 100,000 UNITS/GM - 15 GM TOPICAL POWDER TP SCH ×2 (09:29→21:22)
[2018-08-25] MEDS: FUROSEMIDE 40 MG TABLET (FP) PO SCH (09:30)
--- NOTE | 2018-08-25 09:57 | PN ---
Progress Note (short form) - Note Progress Note: PULMONARY VSS/AFEBRILE APPEARS WEAK Constitutional: Yes: Well Nourished, Calm Eyes: Yes: WNL HENT: Yes: WNL Neck: Yes: WNL Cardiovascular: Yes: Pulse Irregular, S1, S2 Respiratory: Yes: Rales (BILATERAL CRACKLES) Gastrointestinal: Yes: Normal Bowel Sounds, Soft Extremities: Yes: WNL Edema: Yes Labs: noted (1) Acute hypoxemic respiratory failure Code(s): J96.01 - ACUTE RESPIRATORY FAILURE WITH HYPOXIA (2) Urinary tract infection Code(s): N39.0 - URINARY TRACT INFECTION, SITE NOT SPECIFIED (3) Acute renal failure Code(s): N17.9 - ACUTE KIDNEY FAILURE, UNSPECIFIED Qualifiers: Acute renal failure type: unspecified Qualified Code(s): N17.9 - Acute kidney failure, unspecified (4) Altered mental status Code(s): R41.82 - ALTERED MENTAL STATUS, UNSPECIFIED Qualifiers: Altered mental status type: unspecified Qualified Code(s): R41.82 - Altered mental status, unspecified (5) Arrhythmia Code(s): I49.9 - CARDIAC ARRHYTHMIA, UNSPECIFIED (6) Diabetes mellitus Code(s): E11.9 - TYPE 2 DIABETES MELLITUS WITHOUT COMPLICATIONS (7) Hypertension Code(s): I10 - ESSENTIAL (PRIMARY) HYPERTENSION (8) Hypothyroidism Code(s): E03.9 - HYPOTHYROIDISM, UNSPECIFIED (9) Metabolic encephalopathy Code(s): G93.41 - METABOLIC ENCEPHALOPATHY (10) Paroxysmal atrial fibrillation Code(s): I48.0 - PAROXYSMAL ATRIAL FIBRILLATION (11) Pneumonia Code(s): J18.9 - PNEUMONIA, UNSPECIFIED ORGANISM (12) Sepsis Code(s): A41.9 - SEPSIS, UNSPECIFIED ORGANISM (13) Acute on chronic diastolic CHF (congestive heart failure) Code(s): I50.33 - ACUTE ON CHRONIC DIASTOLIC (CONGESTIVE) HEART FAILURE (14) CHF (congestive heart failure) Code(s): I50.9 - HEART FAILURE, UNSPECIFIED Qualifiers: Heart failure type: systolic (15) Acute kidney failure Code(s): N17.9 - ACUTE KIDNEY FAILURE, UNSPECIFIED (16) Afib Code(s): I48.91 - UNSPECIFIED ATRIAL FIBRILLATION Assessment/Plan IMP ACUTE HYPOXEMIC RESPIRATORY FAILURE ACUTE ON CHRONIC CHF SEPSIS ?,PNEUMONIA AFIB PULMONARY HTN FRANDY IDDM HTN ALTERED MENTAL STATUS LIKELY TOXIC- METABOLIC ENCEPHALOPATHY CLINICALLY IMPROVING THROMBOCYTOPENIA PLAN LASIX O2 STRICT I+OS MONITOR LYTES,RENAL FUNCTION,CBC,PLTCT AC ABX PER ID MONITOR O2 SATS F/U CHEST X-RAYS Hayley SERNA MD
[2018-08-25] MEDS ORDERED: FUROSEMIDE 40 MG/4 ML INJECTABLE VIAL IVPUSH SCH (10:00)
--- NOTE | 2018-08-25 13:01 | PN ---
Progress Note, Physician History of Present Illness: AWAKE, RESPONSIVE OOB IN CHAIR OFFERS NO COMPLAINTS DENIES CP/ SOB/ COUGH TEMPS REMAIN DOWN AFEBRILE BREATHING SL TACHYPNEIC ON NASAL CANNULA REPEAT BC NO GROWTH - Current Medication List Current Medications: Active Medications Acetaminophen (Tylenol Suppository -) 650 mg [place] Q6H PRN PRN Reason: FEVER Last Admin: 08/23/18 13:00 Dose: 650 mg Apixaban (Eliquis -) 2.5 mg PO BID [facility] Last Admin: 08/25/18 09:09 Dose: 2.5 mg Atorvastatin Calcium (Lipitor -) 10 mg PO HS [facility] Last Admin: 08/24/18 22:26 Dose: 10 mg Furosemide (Lasix -) 40 mg PO DAILY [facility] Last Admin: 08/25/18 09:30 Dose: 40 mg Meropenem 500 mg/ Dextrose 100 mls @ 200 mls/hr IVPB Q8H-IV [facility] Last Admin: 08/25/18 09:09 Dose: 200 mls/hr Vancomycin HCl (Vancomycin (Pre-Docked)) 1,000 mg in 250 mls @ 200 mls/hr IVPB Q24H [facility]; Protocol Last Admin: 08/24/18 22:55 Dose: Not Given Insulin Aspart (Novolog Mix 70/30 Vial) 40 units SQ BIDAC [facility] Last Admin: 08/25/18 06:22 Dose: 40 units Insulin Aspart (Novolog Vial Sliding Scale -) 1 vial SQ ACHS [facility]; Protocol Last Admin: 08/25/18 06:15 Dose: Not Given Lactobacillus Acidophilus (Bacid -) 1 tab PO DAILY [facility] Last Admin: 08/25/18 09:08 Dose: 1 tab Levothyroxine Sodium (Synthroid -) 50 mcg PO DAILY@0700 [facility] Last Admin: 08/25/18 06:23 Dose: 50 mcg Metoprolol Succinate (Toprol Xl -) 50 mg PO BID [facility] Last Admin: 08/25/18 09:09 Dose: 50 mg Metoprolol Tartrate (Lopressor Injection -) 5 mg IVPUSH Q4H PRN PRN Reason: HYPERTENSION Nystatin (Nystop Powder -) 1 applic TP BID [facility] Last Admin: 08/25/18 09:29 Dose: 1 applic Ondansetron HCl (Zofran Injection) 4 mg IVPUSH Q6H PRN PRN Reason: NAUSEA AND/OR VOMITING Last Admin: 08/20/18 15:39 Dose: 4 mg Potassium Chloride (K-Dur -) 10 meq PO BID [facility] Last Admin: 08/25/18 09:08 Dose: 10 meq - Objective Vital Signs: Vital Signs Temperature 98.1 F 08/25/18 09:33 Pulse Rate 79 08/25/18 09:33 Respiratory Rate 18 08/25/18 09:33 Blood Pressure 130/59 L 08/25/18 09:33 O2 Sat by Pulse Oximetry (%) 97 08/25/18 08:04 Constitutional: Yes: No Distress, Obese Eyes: Yes: Conjunctiva Clear Cardiovascular: Yes: Regular Rate and Rhythm, S1, S2 Respiratory: Yes: Other (FEW CREPITATIONS, BASES) Gastrointestinal: Yes: Normal Bowel Sounds, Soft, Abdomen, Obese. No: Tenderness Edema: No Labs: CBC, BMP 08/25/18 05:16 08/25/18 05:16 INR, PTT INR 1.07 (0.83-1.09) 08/19/18 13:35 Assessment/Plan UTI R/O SEPSIS CHF V. PNEUMONIA TOXIC METABOLIC ENCEPHALOPATHY RESOLVED AZOTEMIA IMPROVED LACTIC ACIDOSIS- RESOLVED CONTINUE MEROPENEM /VANCOMYCIN
--- NOTE | 2018-08-25 15:43 | PN ---
Progress Note (short form) - Note Progress Note: RENAL pt is awake and laert says she is weak Last Vital Signs Temp Pulse Resp BP Pulse Ox 98.5 F 78 20 116/50 L 97 08/25/18 14:00 08/25/18 14:00 08/25/18 14:00 08/25/18 14:00 08/25/18 08:04 lungs some crackles at bases cvs s1s2 rr abd soft ext +edema neuro a+ox3 CBC, BMP 08/25/18 05:16 08/25/18 05:16 Current Medications Generic Name Dose Route Start Last Admin Trade Name Freq PRN Reason Stop Dose Admin Acetaminophen 650 mg 08/23/18 12:54 08/23/18 13:00 Tylenol Suppository - OR 650 mg Q6H PRN Administration FEVER Apixaban 2.5 mg 08/19/18 22:00 08/25/18 09:09 Eliquis - PO 2.5 mg BID [facility] Administration Atorvastatin Calcium 10 mg 08/19/18 22:00 08/24/18 22:26 Lipitor - PO 10 mg HS [facility] Administration Furosemide 40 mg 08/25/18 10:00 08/25/18 09:30 Lasix - PO 40 mg DAILY [facility] Administration Meropenem 500 mg/ Dextrose 100 mls @ 200 mls/hr 08/21/18 11:30 08/25/18 09:09 IVPB 200 mls/hr Q8H-IV [facility] Administration Vancomycin HCl 1,000 mg in 250 mls @ 200 mls/hr 08/24/18 22:45 08/24/18 22:55 Vancomycin (Pre-Docked) IVPB Not Given Q24H [facility] Protocol Insulin Aspart 40 units 08/20/18 07:00 08/25/18 06:22 Novolog Mix 70/30 Vial SQ 40 units BIDAC [facility] Administration Insulin Aspart 1 vial 08/19/18 22:00 08/25/18 06:15 Novolog Vial Sliding Scale - SQ Not Given ACHS [facility] Protocol Lactobacillus Acidophilus 1 tab 08/20/18 10:00 08/25/18 09:08 Bacid - PO 1 tab DAILY [facility] Administration Levothyroxine Sodium 50 mcg 08/20/18 07:00 08/25/18 06:23 Synthroid - PO 50 mcg DAILY@0700 [facility] Administration Metoprolol Succinate 50 mg 08/22/18 10:45 08/25/18 09:09 Toprol Xl - PO 50 mg BID [facility] Administration Metoprolol Tartrate 5 mg 08/21/18 13:00 Lopressor Injection - IVPUSH Q4H PRN HYPERTENSION Nystatin 1 applic 08/25/18 10:00 08/25/18 09:29 Nystop Powder - TP 1 applic BID [facility] Administration Ondansetron HCl 4 mg 08/20/18 14:19 08/20/18 15:39 Zofran Injection IVPUSH 4 mg Q6H PRN Administration NAUSEA AND/OR VOMITING Potassium Chloride 10 meq 08/19/18 22:00 08/25/18 09:08 K-Dur - PO 10 meq BID [facility] Administration Impression 1. FRANDY improved 2. UTI 3. a-fib 4. CHF 5. hx of HTN 6. PNA 7. sepsis 8.hypocalcemia with corrected calcium 8.3 9 prerenal Plan - cont to monitor renal function - will need a voiding trial at some point - cardiology follow up - avoid hypotension -monitor calcium and albumin. consider calcium replacement MV
[2018-08-25 21:12] VITALS: BMI 26.9
[2018-08-25] MEDS: VANCOMYCIN 1 GRAM (PRE-DOCKED) 1,000 MG/250 ML BAG IVPB SCH (21:20)
[2018-08-25] MEDS: ATORVASTATIN CA 10 MG TABLET (FP) PO SCH (21:21)
[2018-08-26] MEDS ORDERED: PT OWN MED DRAWER 7, Y5N ONE ×2 (03:14→09:14)
[2018-08-26] MEDS: VANCOMYCIN 1 GRAM (PRE-DOCKED) 1,000 MG/250 ML BAG IVPB SCH ×2 (03:24→22:37)
[2018-08-26] MEDS: MEROPENEM 500 MG in DEXTROSE 5%-WATER 100 ML IVPB SCH ×3 (03:27→17:26)
[2018-08-26] MEDS: LEVOTHYROXINE NA 50 MCG TABLET (FP) PO SCH (06:27)
[2018-08-26] MEDS: INSULIN SLIDING SCALE (NOVOLOG) 1 VIAL SQ SCH ×4 (06:49→22:40)
[2018-08-26] MEDS: INSULIN (NOVOLOG MIX 70/30) 100 UNITS/ML MDV SQ SCH ×2 (06:49→17:26)
[2018-08-26 07:56] LABS: BLOOD UREA NITROGEN 43.5 mg/dL (7-18); CALCIUM 7.1 mg/dL (8.5-10.1); CREATININE 0.9 mg/dL (0.55-1.3); POTASSIUM 4.3 mmol/L (3.5-5.1)
[2018-08-26] MEDS: APIXABAN 2.5 MG TABLET PO SCH ×2 (09:23→22:36)
[2018-08-26] MEDS: FUROSEMIDE 40 MG TABLET (FP) PO SCH (09:23)
[2018-08-26] MEDS: POTASSIUM CHLORIDE TABS 10 MEQ TABLET.ER (FP) PO SCH ×2 (09:23→22:36)
[2018-08-26] MEDS: LACTOBACILLUS ACIDOPHILUS 1 TABLET PO SCH (09:23)
[2018-08-26] MEDS: NYSTATIN POWDER 100,000 UNITS/GM - 15 GM TOPICAL POWDER TP SCH ×2 (09:24→23:36)
[2018-08-26] MEDS ORDERED: ONDANSETRON 4 MG/2 ML VIAL IVPUSH PRN (10:14)
[2018-08-26] MEDS ORDERED: ACETAMINOPHEN 650 MG SUPP.RECT PR PRN (10:14)
--- NOTE | 2018-08-26 11:33 | PN ---
Progress Note (short form) - Note Progress Note: s: no chest pain, palps, dyspnea Current Medications Acetaminophen (Tylenol Suppository -) 650 mg [place] Q6H PRN PRN Reason: FEVER Apixaban (Eliquis -) 2.5 mg PO BID [facility] Atorvastatin Calcium (Lipitor -) 10 mg PO HS [facility] Furosemide (Lasix -) 40 mg PO DAILY [facility] Meropenem 500 mg/ Dextrose 100 mls @ 200 mls/hr IVPB Q8H-IV [facility] Vancomycin HCl (Vancomycin (Pre-Docked)) 1,000 mg in 250 mls @ 200 mls/hr IVPB Q24H [facility]; Protocol Insulin Aspart (Novolog Mix 70/30 Vial) 40 units SQ BIDAC [facility] Insulin Aspart (Novolog Vial Sliding Scale -) 1 vial SQ ACHS [facility]; Protocol Last Admin: 08/26/18 11:30 Dose: 2 units Lactobacillus Acidophilus (Bacid -) 1 tab PO DAILY [facility] Levothyroxine Sodium (Synthroid -) 50 mcg PO DAILY@0700 [facility] Metoprolol Succinate (Toprol Xl -) 50 mg PO BID [facility] Nystatin (Nystop Powder -) 1 applic TP BID [facility] Last Admin: 08/26/18 09:24 Dose: 1 applic Ondansetron HCl (Zofran Injection) 4 mg IVPUSH Q6H PRN PRN Reason: NAUSEA AND/OR VOMITING Potassium Chloride (K-Dur -) 10 meq PO BID [facility] Vital Signs Period Temp Pulse Resp BP Sys/Guerra Pulse Ox Last 24 Hr 97.5 F-98.5 F 77-82 18-20 116-132/50-74 99-99 Constitutional: Yes: Calm Cardiovascular: Yes: Regular Rate and Rhythm Respiratory: Yes: CTA Bilaterally Gastrointestinal: Yes: Soft Edema: No Peripheral Pulses WNL: Yes Neurological: Yes: Alert, Oriented Labs: CBC, BMP 08/25/18 05:16 08/25/18 05:16 INR, PTT INR 1.07 (0.83-1.09) 08/19/18 13:35 Laboratory Tests 08/25/18 08/25/18 05:16 05:16 WBC 10.6 H Hgb 10.5 L Plt Count 85 L D BUN 49.7 H Creatinine 1.2 Calcium 7.0 L - ....Imaging EKG: Image Reviewed Assessment/Plan IMP: 1. UTI 2. Possible PNA 3. PAF s/p PPM, on NOAC 4. Suspected component of acute on chronic diastolic CHF 5. Thrombocytopenia REC: - manage UTI, PNA per primary - rates improved on increased metprolol dose, continue. Dig loaded with good effect (1mg). Does not seem to required standing dig- suspect RALF was driven by initial sepsis/fever. - thrombocytopenia improving - cont eliquis, monitoring CBC - echo showed mildly to mod reduced LV function - was diuresed with IV lasix, now transitioned to PO - appears euvolemic, cont lasix PO
--- NOTE | 2018-08-26 12:24 | PN ---
Progress Note, Physician History of Present Illness: AWAKE, RESPONSIVE IN BED OFFERS NO COMPLAINTS DENIES CP/ SOB/ COUGH TEMPS REMAIN DOWN AFEBRILE BREATHING NON LABORED REPEAT BC NO GROWTH - Current Medication List Current Medications: Active Medications Acetaminophen (Tylenol Suppository -) 650 mg [place] Q6H PRN PRN Reason: FEVER Apixaban (Eliquis -) 2.5 mg PO BID [facility] Atorvastatin Calcium (Lipitor -) 10 mg PO HS [facility] Furosemide (Lasix -) 40 mg PO DAILY [facility] Meropenem 500 mg/ Dextrose 100 mls @ 200 mls/hr IVPB Q8H-IV [facility] Vancomycin HCl (Vancomycin (Pre-Docked)) 1,000 mg in 250 mls @ 200 mls/hr IVPB Q24H [facility]; Protocol Insulin Aspart (Novolog Mix 70/30 Vial) 40 units SQ BIDAC [facility] Insulin Aspart (Novolog Vial Sliding Scale -) 1 vial SQ ACHS [facility]; Protocol Last Admin: 08/26/18 11:30 Dose: 2 units Lactobacillus Acidophilus (Bacid -) 1 tab PO DAILY [facility] Levothyroxine Sodium (Synthroid -) 50 mcg PO DAILY@0700 [facility] Metoprolol Succinate (Toprol Xl -) 50 mg PO BID [facility] Nystatin (Nystop Powder -) 1 applic TP BID [facility] Last Admin: 08/26/18 09:24 Dose: 1 applic Ondansetron HCl (Zofran Injection) 4 mg IVPUSH Q6H PRN PRN Reason: NAUSEA AND/OR VOMITING Potassium Chloride (K-Dur -) 10 meq PO BID [facility] - Objective Vital Signs: Vital Signs Temperature 98.1 F 08/26/18 09:21 Pulse Rate 82 08/26/18 09:21 Respiratory Rate 18 08/26/18 09:21 Blood Pressure 123/70 08/26/18 09:21 O2 Sat by Pulse Oximetry (%) 99 08/26/18 08:58 Constitutional: Yes: No Distress Eyes: Yes: Conjunctiva Clear Cardiovascular: Yes: Regular Rate and Rhythm, S1, S2 Respiratory: Yes: Rhonchi Gastrointestinal: Yes: Normal Bowel Sounds, Soft, Abdomen, Obese. No: Tenderness Labs: CBC, BMP 08/25/18 05:16 08/26/18 05:39 INR, PTT INR 1.07 (0.83-1.09) 08/19/18 13:35 Assessment/Plan UTI R/O SEPSIS CHF V. PNEUMONIA TOXIC METABOLIC ENCEPHALOPATHY RESOLVED AZOTEMIA IMPROVED LACTIC ACIDOSIS- RESOLVED CONTINUE MEROPENEM /VANCOMYCIN
--- NOTE | 2018-08-26 13:48 | PN ---
Progress Note, Physician Chief Complaint: No new complaints - Current Medication List Current Medications: Active Medications Acetaminophen (Tylenol Suppository -) 650 mg [place] Q6H PRN PRN Reason: FEVER Apixaban (Eliquis -) 2.5 mg PO BID [facility] Atorvastatin Calcium (Lipitor -) 10 mg PO HS [facility] Furosemide (Lasix -) 40 mg PO DAILY [facility] Meropenem 500 mg/ Dextrose 100 mls @ 200 mls/hr IVPB Q8H-IV [facility] Vancomycin HCl (Vancomycin (Pre-Docked)) 1,000 mg in 250 mls @ 200 mls/hr IVPB Q24H [facility]; Protocol Insulin Aspart (Novolog Mix 70/30 Vial) 40 units SQ BIDAC [facility] Insulin Aspart (Novolog Vial Sliding Scale -) 1 vial SQ ACHS [facility]; Protocol Last Admin: 08/26/18 11:30 Dose: 2 units Lactobacillus Acidophilus (Bacid -) 1 tab PO DAILY [facility] Levothyroxine Sodium (Synthroid -) 50 mcg PO DAILY@0700 [facility] Metoprolol Succinate (Toprol Xl -) 50 mg PO BID [facility] Nystatin (Nystop Powder -) 1 applic TP BID [facility] Last Admin: 08/26/18 09:24 Dose: 1 applic Ondansetron HCl (Zofran Injection) 4 mg IVPUSH Q6H PRN PRN Reason: NAUSEA AND/OR VOMITING Potassium Chloride (K-Dur -) 10 meq PO BID [facility] - Objective Vital Signs: Vital Signs Temperature 98.1 F 08/26/18 09:21 Pulse Rate 82 08/26/18 09:21 Respiratory Rate 18 08/26/18 09:21 Blood Pressure 123/70 08/26/18 09:21 O2 Sat by Pulse Oximetry (%) 99 08/26/18 08:58 Constitutional: Yes: No Distress Neck: Yes: Supple Cardiovascular: Yes: Regular Rate and Rhythm, S1, S2 Respiratory: Yes: CTA Bilaterally Gastrointestinal: Yes: Normal Bowel Sounds, Soft Neurological: Yes: Alert. No: Loss of Sensation ...Motor Strength: WNL Labs: CBC, BMP 08/25/18 05:16 08/26/18 05:39 INR, PTT INR 1.07 (0.83-1.09) 08/19/18 13:35 Problem List - Problems (1) Afib Assessment/Plan: Rate controlled. Code(s): I48.91 - UNSPECIFIED ATRIAL FIBRILLATION Qualifiers: Atrial fibrillation type: chronic Qualified Code(s): I48.2 - Chronic atrial fibrillation (2) Pneumonia Assessment/Plan: Abx Code(s): J18.9 - PNEUMONIA, UNSPECIFIED ORGANISM Qualifiers: Pneumonia type: due to unspecified organism Laterality: unspecified laterality Lung location: unspecified part of lung Qualified Code(s): J18.9 - Pneumonia, unspecified organism
[2018-08-26] MEDS: ATORVASTATIN CA 10 MG TABLET (FP) PO SCH (22:37)
[2018-08-27] MEDS ORDERED: PT OWN MED DRAWER 7, Y5N ONE ×3 (02:40→17:12)
[2018-08-27] MEDS: MEROPENEM 500 MG in DEXTROSE 5%-WATER 100 ML IVPB SCH ×3 (02:43→17:30)
[2018-08-27] MEDS: INSULIN (NOVOLOG MIX 70/30) 100 UNITS/ML MDV SQ SCH ×2 (06:15→17:30)
[2018-08-27] MEDS: LEVOTHYROXINE NA 50 MCG TABLET (FP) PO SCH (06:16)
[2018-08-27] MEDS: INSULIN SLIDING SCALE (NOVOLOG) 1 VIAL SQ SCH ×4 (06:16→22:37)
--- NOTE | 2018-08-27 09:16 | PN ---
Progress Note (short form) - Note Progress Note: RENAL pt is awake and alert says she is better has no appetite Last Vital Signs Temp Pulse Resp BP Pulse Ox 98.1 F 82 20 112/51 L 98 08/27/18 06:00 08/27/18 06:00 08/27/18 06:00 08/27/18 06:00 08/26/18 21:00 lungs some crackles at bases cvs s1s2 rr abd soft ext +edema neuro a+ox3 CBC, BMP 08/25/18 05:16 08/26/18 05:39 Current Medications Generic Name Dose Route Start Last Admin Trade Name Freq PRN Reason Stop Dose Admin Acetaminophen 650 mg 08/26/18 10:14 Tylenol Suppository - [place] Q6H PRN FEVER Apixaban 2.5 mg 08/26/18 22:00 08/26/18 22:36 Eliquis - PO 2.5 mg BID [facility] Administration Atorvastatin Calcium 10 mg 08/26/18 22:00 08/26/18 22:37 Lipitor - PO 10 mg HS [facility] Administration Furosemide 40 mg 08/27/18 10:00 Lasix - PO DAILY [facility] Meropenem 500 mg/ Dextrose 100 mls @ 200 mls/hr 08/26/18 18:00 08/27/18 02:43 IVPB 200 mls/hr Q8H-IV [facility] Administration Vancomycin HCl 1,000 mg in 250 mls @ 200 mls/hr 08/26/18 22:45 08/26/18 22:37 Vancomycin (Pre-Docked) IVPB 200 mls/hr Q24H [facility] Administration Protocol Insulin Aspart 40 units 08/26/18 16:30 08/27/18 06:15 Novolog Mix 70/30 Vial SQ 40 units BIDAC [facility] Administration Insulin Aspart 1 vial 08/26/18 11:00 08/27/18 06:16 Novolog Vial Sliding Scale - SQ Not Given ACHS [facility] Protocol Lactobacillus Acidophilus 1 tab 08/27/18 10:00 Bacid - PO DAILY [facility] Levothyroxine Sodium 50 mcg 08/27/18 07:00 08/27/18 06:16 Synthroid - PO 50 mcg DAILY@0700 [facility] Administration Metoprolol Succinate 50 mg 08/26/18 22:00 08/26/18 22:36 Toprol Xl - PO 50 mg BID [facility] Administration Nystatin 1 applic 08/25/18 10:00 08/26/18 23:36 Nystop Powder - TP Not Given BID [facility] Ondansetron HCl 4 mg 08/26/18 10:14 Zofran Injection IVPUSH Q6H PRN NAUSEA AND/OR VOMITING Potassium Chloride 10 meq 08/26/18 22:00 08/26/18 22:36 K-Dur - PO 10 meq BID [facility] Administration Impression 1. FRANDY improved 2. UTI 3. a-fib 4. CHF 5. hx of HTN 6. PNA 7. sepsis 8.hypocalcemia with corrected calcium 8.3 9 prerenal 10 thrombocytopenia Plan - cont to monitor renal function - check platelets and have heme follow - hold lasix given persistent high bun MV
[2018-08-27] MEDS: POTASSIUM CHLORIDE TABS 10 MEQ TABLET.ER (FP) PO SCH ×2 (10:03→21:53)
[2018-08-27] MEDS: LACTOBACILLUS ACIDOPHILUS 1 TABLET PO SCH (10:04)
[2018-08-27] MEDS: APIXABAN 2.5 MG TABLET PO SCH ×2 (10:04→21:53)
[2018-08-27] MEDS: FUROSEMIDE 40 MG TABLET (FP) PO SCH (10:04)
--- NOTE | 2018-08-27 11:04 | PN ---
Progress Note (short form) - Note Progress Note: PULMONARY VSS/AFEBRILE Constitutional: Yes: Well Nourished, Calm Eyes: Yes: WNL HENT: Yes: WNL Neck: Yes: WNL Cardiovascular: Yes: Pulse Irregular, S1, S2 Respiratory: Yes: Rales (BILATERAL CRACKLES) Gastrointestinal: Yes: Normal Bowel Sounds, Soft Extremities: Yes: WNL Edema: Yes Labs: noted IMP ACUTE HYPOXEMIC RESPIRATORY FAILURE ACUTE ON CHRONIC CHF SEPSIS ?,PNEUMONIA AFIB PULMONARY HTN FRANDY IDDM HTN ALTERED MENTAL STATUS LIKELY TOXIC- METABOLIC ENCEPHALOPATHY CLINICALLY IMPROVED THROMBOCYTOPENIA PLAN LASIX O2 STRICT I+OS MONITOR LYTES,RENAL FUNCTION,CBC,PLTCT AC ABX PER ID MONITOR O2 SATS F/U CHEST X-RAYS PT VINNY SERNA MD
--- NOTE | 2018-08-27 11:55 | PN ---
Progress Note (short form) - Note Progress Note: s: no chest pain, palps, dyspnea Current Medications Acetaminophen (Tylenol Suppository -) 650 mg [place] Q6H PRN PRN Reason: FEVER Apixaban (Eliquis -) 2.5 mg PO BID [facility] Last Admin: 08/27/18 10:04 Dose: 2.5 mg Atorvastatin Calcium (Lipitor -) 10 mg PO HS [facility] Last Admin: 08/26/18 22:37 Dose: 10 mg Furosemide (Lasix -) 40 mg PO DAILY [facility] Last Admin: 08/27/18 10:04 Dose: 40 mg Meropenem 500 mg/ Dextrose 100 mls @ 200 mls/hr IVPB Q8H-IV [facility] Last Admin: 08/27/18 10:04 Dose: 200 mls/hr Vancomycin HCl (Vancomycin (Pre-Docked)) 1,000 mg in 250 mls @ 200 mls/hr IVPB Q24H [facility]; Protocol Last Admin: 08/26/18 22:37 Dose: 200 mls/hr Insulin Aspart (Novolog Mix 70/30 Vial) 40 units SQ BIDAC [facility] Last Admin: 08/27/18 06:15 Dose: 40 units Insulin Aspart (Novolog Vial Sliding Scale -) 1 vial SQ ACHS [facility]; Protocol Last Admin: 08/27/18 06:16 Dose: Not Given Lactobacillus Acidophilus (Bacid -) 1 tab PO DAILY [facility] Last Admin: 08/27/18 10:04 Dose: 1 tab Levothyroxine Sodium (Synthroid -) 50 mcg PO DAILY@0700 [facility] Last Admin: 08/27/18 06:16 Dose: 50 mcg Metoprolol Succinate (Toprol Xl -) 50 mg PO BID [facility] Last Admin: 08/27/18 10:04 Dose: 50 mg Nystatin (Nystop Powder -) 1 applic TP BID [facility] Last Admin: 08/26/18 23:36 Dose: Not Given Ondansetron HCl (Zofran Injection) 4 mg IVPUSH Q6H PRN PRN Reason: NAUSEA AND/OR VOMITING Potassium Chloride (K-Dur -) 10 meq PO BID [facility] Last Admin: 08/27/18 10:03 Dose: 10 meq Vital Signs Period Temp Pulse Resp BP Sys/Guerra Pulse Ox Last 24 Hr 97.9 F-98.2 F 79-105 18-20 112-134/48-61 98-98 Constitutional: Yes: Calm Cardiovascular: Yes: Regular Rate and Rhythm Respiratory: Yes: CTA Bilaterally Gastrointestinal: Yes: Soft Edema: No Peripheral Pulses WNL: Yes Neurological: Yes: Alert, Oriented Assessment/Plan IMP: 1. UTI 2. Possible PNA 3. PAF s/p PPM, on NOAC 4. Suspected component of acute on chronic diastolic CHF 5. Thrombocytopenia REC: - manage UTI, PNA per primary - rates improved on increased metprolol dose, continue. Dig loaded with good effect (1mg). Does not seem to required standing dig- suspect RALF was driven by initial sepsis/fever. - thrombocytopenia improving - cont eliquis, monitoring CBC - echo showed mildly to mod reduced LV function - was diuresed with IV lasix, now transitioned to PO - appears euvolemic, cont lasix PO
--- NOTE | 2018-08-27 12:07 | PN ---
Progress Note, Physician History of Present Illness: AWAKE, RESPONSIVE IN BED NO COMPLAINTS DENIES CP/ SOB/ COUGH TEMPS REMAIN DOWN AFEBRILE BREATHING NON LABORED ON ROOM AIR REPEAT BC NO GROWTH - Current Medication List Current Medications: Active Medications Acetaminophen (Tylenol Suppository -) 650 mg [place] Q6H PRN PRN Reason: FEVER Apixaban (Eliquis -) 2.5 mg PO BID [facility] Last Admin: 08/27/18 10:04 Dose: 2.5 mg Atorvastatin Calcium (Lipitor -) 10 mg PO HS [facility] Last Admin: 08/26/18 22:37 Dose: 10 mg Furosemide (Lasix -) 40 mg PO DAILY [facility] Last Admin: 08/27/18 10:04 Dose: 40 mg Meropenem 500 mg/ Dextrose 100 mls @ 200 mls/hr IVPB Q8H-IV [facility] Last Admin: 08/27/18 10:04 Dose: 200 mls/hr Vancomycin HCl (Vancomycin (Pre-Docked)) 1,000 mg in 250 mls @ 200 mls/hr IVPB Q24H [facility]; Protocol Last Admin: 08/26/18 22:37 Dose: 200 mls/hr Insulin Aspart (Novolog Mix 70/30 Vial) 40 units SQ BIDAC [facility] Last Admin: 08/27/18 06:15 Dose: 40 units Insulin Aspart (Novolog Vial Sliding Scale -) 1 vial SQ ACHS [facility]; Protocol Last Admin: 08/27/18 06:16 Dose: Not Given Lactobacillus Acidophilus (Bacid -) 1 tab PO DAILY [facility] Last Admin: 08/27/18 10:04 Dose: 1 tab Levothyroxine Sodium (Synthroid -) 50 mcg PO DAILY@0700 [facility] Last Admin: 08/27/18 06:16 Dose: 50 mcg Metoprolol Succinate (Toprol Xl -) 50 mg PO BID [facility] Last Admin: 08/27/18 10:04 Dose: 50 mg Nystatin (Nystop Powder -) 1 applic TP BID [facility] Last Admin: 08/26/18 23:36 Dose: Not Given Ondansetron HCl (Zofran Injection) 4 mg IVPUSH Q6H PRN PRN Reason: NAUSEA AND/OR VOMITING Potassium Chloride (K-Dur -) 10 meq PO BID [facility] Last Admin: 08/27/18 10:03 Dose: 10 meq - Objective Vital Signs: Vital Signs Temperature 98.1 F 08/27/18 10:21 Pulse Rate 96 H 08/27/18 10:21 Respiratory Rate 18 08/27/18 10:21 Blood Pressure 134/48 L 08/27/18 10:21 O2 Sat by Pulse Oximetry (%) 98 08/27/18 09:00 Constitutional: Yes: No Distress, Obese Eyes: Yes: Conjunctiva Clear Cardiovascular: Yes: Regular Rate and Rhythm, S1, S2 Respiratory: Yes: CTA Bilaterally Gastrointestinal: Yes: Normal Bowel Sounds, Soft, Abdomen, Obese. No: Tenderness Edema: No Labs: CBC, BMP 08/25/18 05:16 08/26/18 05:39 INR, PTT INR 1.07 (0.83-1.09) 08/19/18 13:35 Assessment/Plan UTI R/O SEPSIS CHF V. PNEUMONIA TOXIC METABOLIC ENCEPHALOPATHY RESOLVED AZOTEMIA IMPROVED LACTIC ACIDOSIS- RESOLVED CONTINUE MEROPENEM /VANCOMYCIN
[2018-08-27] MEDS: NYSTATIN POWDER 100,000 UNITS/GM - 15 GM TOPICAL POWDER TP SCH ×2 (12:15→21:54)
--- NOTE | 2018-08-27 13:16 | PN ---
Progress Note, Physician Chief Complaint: No new complaints - Current Medication List Current Medications: Active Medications Acetaminophen (Tylenol Suppository -) 650 mg [place] Q6H PRN PRN Reason: FEVER Apixaban (Eliquis -) 2.[address] [facility] Last Admin: 08/27/18 10:04 Dose: 2.5 mg Atorvastatin Calcium (Lipitor -) [address] [facility] Last Admin: 08/26/18 22:37 Dose: 10 mg Furosemide (Lasix -) [address] [facility] Last Admin: 08/27/18 10:04 Dose: 40 mg Meropenem 500 mg/ Dextrose 100 mls @ 200 mls/hr IVPB Q8H-IV [facility] Last Admin: 08/27/18 10:04 Dose: 200 mls/hr Vancomycin HCl (Vancomycin (Pre-Docked)) 1,000 mg in 250 mls @ 200 mls/hr IVPB Q24H [facility]; Protocol Last Admin: 08/26/18 22:37 Dose: 200 mls/hr Insulin Aspart (Novolog Mix 70/30 Vial) [address] [facility] Last Admin: 08/27/18 06:15 Dose: 40 units Insulin Aspart (Novolog Vial Sliding Scale -) [address] [facility]; Protocol Last Admin: 08/27/18 12:15 Dose: 2 units Lactobacillus Acidophilus (Bacid -) [address] [facility] Last Admin: 08/27/18 10:04 Dose: 1 tab Levothyroxine Sodium (Synthroid -) 50 mcg PO DAILY@0700 [facility] Last Admin: 08/27/18 06:16 Dose: 50 mcg Metoprolol Succinate (Toprol Xl -) [address] [facility] Last Admin: 08/27/18 10:04 Dose: 50 mg Nystatin (Nystop Powder -) [address] [facility] Last Admin: 08/27/18 12:15 Dose: 1 applic Ondansetron HCl (Zofran Injection) 4 mg IVPUSH Q6H PRN PRN Reason: NAUSEA AND/OR VOMITING Potassium Chloride (K-Dur -) [address] [facility] Last Admin: 08/27/18 10:03 Dose: 10 meq - Objective Vital Signs: Vital Signs Temperature 98.1 F 08/27/18 10:21 Pulse Rate 96 H 08/27/18 10:21 Respiratory Rate 18 08/27/18 10:21 Blood Pressure 134/48 L 08/27/18 10:21 O2 Sat by Pulse Oximetry (%) 98 08/27/18 09:00 Constitutional: Yes: No Distress Neck: Yes: Supple Cardiovascular: Yes: S1, S2 Respiratory: Yes: CTA Bilaterally Gastrointestinal: Yes: Normal Bowel Sounds, Soft Neurological: Yes: Alert, Oriented. No: Loss of Sensation Labs: CBC, BMP 08/25/18 05:16 08/26/18 05:39 INR, PTT INR 1.07 (0.83-1.09) 08/19/18 13:35 Problem List - Problems (1) Afib Assessment/Plan: Rate controlled. Code(s): I48.91 - UNSPECIFIED ATRIAL FIBRILLATION Qualifiers: Atrial fibrillation type: chronic Qualified Code(s): I48.2 - Chronic atrial fibrillation (2) Pneumonia Assessment/Plan: Abx Code(s): J18.9 - PNEUMONIA, UNSPECIFIED ORGANISM Qualifiers: Pneumonia type: due to unspecified organism Laterality: unspecified laterality Lung location: unspecified part of lung Qualified Code(s): J18.9 - Pneumonia, unspecified organism
[2018-08-27] MEDS: ATORVASTATIN CA 10 MG TABLET (FP) PO SCH (21:53)
[2018-08-27] MEDS: VANCOMYCIN 1 GRAM (PRE-DOCKED) 1,000 MG/250 ML BAG IVPB SCH (23:23)
[2018-08-28] MEDS ORDERED: LIDOCAINE 5% TOPICAL PATCH TP ONE (03:04)
[2018-08-28] MEDS ORDERED: ACETAMINOPHEN 325 MG TABLET (FP) PO PRN (03:05)
--- NOTE | 2018-08-28 03:14 | HOSP ---
Physical Examination Vital Signs: Vital Signs Temperature 97.9 F 08/28/18 02:46 Pulse Rate 97 H 08/28/18 02:46 Respiratory Rate 18 08/28/18 02:46 Blood Pressure 147/70 08/28/18 02:46 O2 Sat by Pulse Oximetry (%) 98 08/27/18 20:19 Labs: CBC, BMP 08/25/18 05:16 08/26/18 05:39 Hospitalist Encounter Assessment: was called to assess as patient had an unwitnessed fall- patient had fallen while trying to use the restroom- she states that she was finishing up on the toilet when she lost her balance and fell-denied any preceding chest pains/ dizziness/ nausea/vomiting or LOC- she recalls hitting her back and thinks she may have hit her head as well PE: gen: in slight acute distress (uncomfortable laying on back) AOX3 head: NCAT; no signs of trauma or bruising to the area lungs: slightly scattered rhonchi at the bases however good air entry Cardio: irregularly irregular s1 s2; no murmurs rubs or gallops extremities: slight bruising on B/L upper extremities; no edema (warm/well- perfused) neuro: CN 2-12 intact; sensation intact throughout 4/5 strength B/L UE LE plan: CT head/cervical/thoracic/lumbar spine lidoderm patch/tylenol PRN for pain control
[2018-08-28] MEDS: MEROPENEM 500 MG in DEXTROSE 5%-WATER 100 ML IVPB SCH ×2 (04:37→10:24)
[2018-08-28] MEDS: INSULIN SLIDING SCALE (NOVOLOG) 1 VIAL SQ SCH ×4 (06:18→22:52)
[2018-08-28] MEDS: INSULIN (NOVOLOG MIX 70/30) 100 UNITS/ML MDV SQ SCH ×2 (06:21→18:08)
[2018-08-28] MEDS: LEVOTHYROXINE NA 50 MCG TABLET (FP) PO SCH (06:22)
[2018-08-28] MEDS ORDERED: INSULIN (NOVOLOG MIX 70/30) 100 UNITS/ML MDV SQ ONE ×2 (06:38→18:15)
--- NOTE | 2018-08-28 08:39 | PN ---
Progress Note (short form) - Note Progress Note: fell alone in the bathroom last night-CT spine cervical to lumbar negative for fracture, old T12 compression fracture now c/o lot of lower back pain Vital Signs Period Temp Pulse Resp BP Sys/Guerra Pulse Ox Last 24 Hr 97.4 F-98.3 F 89-111 17-20 118-147/48-70 98-98 S1 S2 RRR lungs scattered rales at bases, good air entry abd soft but distended no edema awake alert to place and person able to move her legs, lumbar tenderness and stiffness noted 88 yo lady h/o Afib/PPM/CHF/breast CA/IDDM PNA UTI sepsis Pulmonary edema -better Rapid afib-rate controlled FRANDY better Platelet better fall with back pain on vanco and meropenem PT eval after fall add flexeril for 2 days dc planning to SNF once on oral abx
--- NOTE | 2018-08-28 09:06 | PN ---
Progress Note (short form) - Note Progress Note: Resting in NAD. Noted fall last night. No CP or SOB. Afebrile. Intake & Output 08/25/18 08/26/18 08/27/18 08/28/18 23:59 23:59 23:59 23:59 Intake Total 250 1540 1290 Output Total 760 Balance 001 217 2292 Weight 152 lb 153 lb 12.8 oz 152 lb 3.2 oz Last Vital Signs Temp Pulse Resp BP Pulse Ox 98.3 F 111 H 18 144/63 98 08/28/18 06:48 08/28/18 06:48 08/28/18 06:48 08/28/18 06:48 08/27/18 20:19 Active Medications Acetaminophen (Tylenol Suppository -) 650 mg [place] Q6H PRN PRN Reason: FEVER Acetaminophen (Tylenol -) 650 mg PO Q6H PRN PRN Reason: PAIN Apixaban (Eliquis -) 2.5 mg PO BID [facility] Last Admin: 08/27/18 21:53 Dose: 2.5 mg Atorvastatin Calcium (Lipitor -) 10 mg PO HS [facility] Last Admin: 08/27/18 21:53 Dose: 10 mg Cyclobenzaprine HCl (Flexeril -) 5 mg PO TID [facility] Stop: 08/30/18 23:59 Furosemide (Lasix -) 40 mg PO DAILY [facility] Last Admin: 08/27/18 10:04 Dose: 40 mg Meropenem 500 mg/ Dextrose 100 mls @ 200 mls/hr IVPB Q8H-IV [facility] Last Admin: 08/28/18 04:37 Dose: 200 mls/hr Vancomycin HCl (Vancomycin (Pre-Docked)) 1,000 mg in 250 mls @ 200 mls/hr IVPB Q24H [facility]; Protocol Last Admin: 08/27/18 23:23 Dose: 200 mls/hr Insulin Aspart (Novolog Mix 70/30 Vial) 40 units SQ BIDAC [facility] Last Admin: 08/28/18 06:21 Dose: 40 units Insulin Aspart (Novolog Vial Sliding Scale -) 1 vial SQ ACHS [facility]; Protocol Last Admin: 08/28/18 06:18 Dose: Not Given Lactobacillus Acidophilus (Bacid -) 1 tab PO DAILY [facility] Last Admin: 08/27/18 10:04 Dose: 1 tab Levothyroxine Sodium (Synthroid -) 50 mcg PO DAILY@0700 [facility] Last Admin: 08/28/18 06:22 Dose: 50 mcg Metoprolol Succinate (Toprol Xl -) 50 mg PO BID [facility] Last Admin: 08/27/18 21:54 Dose: 50 mg Miscellaneous (Lidoderm Patch Removal) 1 each MC DAILY@2200 [facility] Nystatin (Nystop Powder -) 1 applic TP BID [facility] Last Admin: 08/27/18 21:54 Dose: 1 applic Ondansetron HCl (Zofran Injection) 4 mg IVPUSH Q6H PRN PRN Reason: NAUSEA AND/OR VOMITING Potassium Chloride (K-Dur -) 10 meq PO BID [facility] Last Admin: 08/27/18 21:53 Dose: 10 meq Constitutional: Yes: No Distress Neck: Yes: Supple Cardiovascular: Yes: S1, S2 Respiratory: Yes: few scattered rhonchi Gastrointestinal: Yes: Normal Bowel Sounds, Soft Neurological: Yes: Alert, Oriented. Labs: Laboratory Results - last 24 hr 08/27/18 08/27/18 08/27/18 12:15 17:29 22:05 POC Glucometer 213 227 109 Vancomycin Pre-Dose 08/27/18 08/28/18 22:38 06:16 POC Glucometer 176 Vancomycin Pre-Dose 12.8 L IMP: PNA AFib Breast CA IDDM PPM UTI sepsis Pulmonary edema -better Rapid afib-rate controlled FRANDY better Platelet better fall with back pain ABX per ID O2 as needed Fall precautions PT VTE prophylaxis Dr Fermin
[2018-08-28] MEDS: POTASSIUM CHLORIDE TABS 10 MEQ TABLET.ER (FP) PO SCH (10:24)
[2018-08-28] MEDS: CYCLOBENZAPRINE HCL 10 MG TABLET (FP) PO SCH ×3 (10:25→22:47)
[2018-08-28] MEDS: LACTOBACILLUS ACIDOPHILUS 1 TABLET PO SCH (10:25)
[2018-08-28] MEDS: APIXABAN 2.5 MG TABLET PO SCH ×2 (10:26→22:47)
[2018-08-28] MEDS: NYSTATIN POWDER 100,000 UNITS/GM - 15 GM TOPICAL POWDER TP SCH ×2 (10:26→22:48)
[2018-08-28] MEDS: FUROSEMIDE 40 MG TABLET (FP) PO SCH (10:26)
--- NOTE | 2018-08-28 11:05 | PN ---
Progress Note, Physician Chief Complaint: no chest pain or SOB History of Present Illness: fell last night, events reviewed - Current Medication List Current Medications: Active Medications Acetaminophen (Tylenol Suppository -) 650 mg [place] Q6H PRN PRN Reason: FEVER Acetaminophen (Tylenol -) 650 mg PO Q6H PRN PRN Reason: PAIN Apixaban (Eliquis -) 2.5 mg PO BID [facility] Last Admin: 08/28/18 10:26 Dose: 2.5 mg Atorvastatin Calcium (Lipitor -) 10 mg PO HS [facility] Last Admin: 08/27/18 21:53 Dose: 10 mg Cyclobenzaprine HCl (Flexeril -) 5 mg PO TID [facility] Stop: 08/30/18 23:59 Last Admin: 08/28/18 10:25 Dose: 5 mg Furosemide (Lasix -) 40 mg PO DAILY [facility] Last Admin: 08/28/18 10:26 Dose: 40 mg Meropenem 500 mg/ Dextrose 100 mls @ 200 mls/hr IVPB Q8H-IV [facility] Last Admin: 08/28/18 10:24 Dose: 200 mls/hr Vancomycin HCl (Vancomycin (Pre-Docked)) 1,000 mg in 250 mls @ 200 mls/hr IVPB Q24H [facility]; Protocol Last Admin: 08/27/18 23:23 Dose: 200 mls/hr Insulin Aspart (Novolog Mix 70/30 Vial) 40 units SQ BIDAC [facility] Last Admin: 08/28/18 06:21 Dose: 40 units Insulin Aspart (Novolog Vial Sliding Scale -) 1 vial SQ ACHS [facility]; Protocol Last Admin: 08/28/18 06:18 Dose: Not Given Lactobacillus Acidophilus (Bacid -) 1 tab PO DAILY [facility] Last Admin: 08/28/18 10:25 Dose: 1 tab Levothyroxine Sodium (Synthroid -) 50 mcg PO DAILY@0700 [facility] Last Admin: 08/28/18 06:22 Dose: 50 mcg Metoprolol Succinate (Toprol Xl -) 50 mg PO BID [facility] Last Admin: 08/28/18 10:26 Dose: 50 mg Miscellaneous (Lidoderm Patch Removal) 1 each MC DAILY@2200 [facility] Nystatin (Nystop Powder -) 1 applic TP BID [facility] Last Admin: 08/28/18 10:26 Dose: 1 applic Ondansetron HCl (Zofran Injection) 4 mg IVPUSH Q6H PRN PRN Reason: NAUSEA AND/OR VOMITING Potassium Chloride (K-Dur -) 10 meq PO BID [facility] Last Admin: 08/28/18 10:24 Dose: 10 meq - Objective Vital Signs: Vital Signs Temperature 98.3 F 08/28/18 06:48 Pulse Rate 111 H 08/28/18 06:48 Respiratory Rate 18 08/28/18 09:00 Blood Pressure 144/63 08/28/18 06:48 O2 Sat by Pulse Oximetry (%) 96 08/28/18 09:00 Constitutional: Yes: No Distress, Calm Cardiovascular: Yes: Pulse Irregular Respiratory: Yes: CTA Bilaterally Gastrointestinal: Yes: Soft Edema: No Neurological: Yes: Alert, Oriented Labs: INR, PTT INR 1.07 (0.83-1.09) 08/19/18 13:35 Assessment/Plan IMP: 1. UTI 2. Possible PNA 3. PAF s/p PPM, on NOAC 4. Suspected component of acute on chronic diastolic CHF 5. Thrombocytopenia REC: - manage UTI, PNA per primary - rates improved on increased metprolol dose, continue. Dig loaded with good effect (1mg). Does not seem to required standing dig- suspect RALF was driven by initial sepsis/fever. - thrombocytopenia improving - cont eliquis, monitoring CBC - echo showed mildly to mod reduced LV function - was diuresed with IV lasix, now transitioned to PO - appears euvolemic, cont lasix PO -Fall noted, CTs negative. PT eval pending and likely d/c to SNF. If falls recurrent or if deemed high risk for recurrent falls, can reconsider use of full AC moving forward.
[2018-08-28 11:12] LABS: BASO % 0.7 % (0-2.0); EOS % 1.2 % (0-4.5); HEMATOCRIT 32.3 % (32.4-45.2); HEMOGLOBIN 10.8 GM/dL (10.7-15.3); MCH 29.7 pg (25.7-33.7); MCHC 33.5 g/dl (32.0-36.0); MEAN CELL VOLUME 88.8 fl (80-96); MEAN PLT VOLUME 9.2 fl (7.5-11.1); MONO % 12.4 % (3.8-10.2); NEUT % 59.7 % (42.8-82.8); PLATELET COUNT 326 K/MM3 (134-434); RBC 3.64 M/mm3 (3.60-5.2); RDW 14.6 % (11.6-15.6); WHITE BLOOD COUNT 12.9 K/mm3 (4.0-10.0)
[2018-08-28 12:32] LABS: ALBUMIN 2.3 g/dl (3.4-5.0); BILIRUBIN,TOTAL 0.9 mg/dL (0.2-1); BLOOD UREA NITROGEN 30.7 mg/dL (7-18); CALCIUM 7.9 mg/dL (8.5-10.1); CREATININE 0.9 mg/dL (0.55-1.3); POTASSIUM 4.6 mmol/L (3.5-5.1); TOT PROT 5.8 g/dl (6.4-8.2)
--- NOTE | 2018-08-28 13:47 | PN ---
Progress Note, Physician History of Present Illness: Pt seen and examined at bedside. She is awake and appears more comfortable. She denies shortness of breath. - Current Medication List Current Medications: Active Medications Acetaminophen (Tylenol Suppository -) 650 mg [place] Q6H PRN PRN Reason: FEVER Acetaminophen (Tylenol -) 650 mg PO Q6H PRN PRN Reason: PAIN Apixaban (Eliquis -) 2.5 mg PO BID [facility] Last Admin: 08/28/18 10:26 Dose: 2.5 mg Atorvastatin Calcium (Lipitor -) 10 mg PO HS [facility] Last Admin: 08/27/18 21:53 Dose: 10 mg Cyclobenzaprine HCl (Flexeril -) 5 mg PO TID [facility] Stop: 08/30/18 23:59 Last Admin: 08/28/18 10:25 Dose: 5 mg Furosemide (Lasix -) 40 mg PO DAILY [facility] Last Admin: 08/28/18 10:26 Dose: 40 mg Meropenem 500 mg/ Dextrose 100 mls @ 200 mls/hr IVPB Q8H-IV [facility] Last Admin: 08/28/18 10:24 Dose: 200 mls/hr Vancomycin HCl (Vancomycin (Pre-Docked)) 1,000 mg in 250 mls @ 200 mls/hr IVPB Q24H [facility]; Protocol Last Admin: 08/27/18 23:23 Dose: 200 mls/hr Insulin Aspart (Novolog Mix 70/30 Vial) 40 units SQ BIDAC [facility] Last Admin: 08/28/18 06:21 Dose: 40 units Insulin Aspart (Novolog Vial Sliding Scale -) 1 vial SQ ACHS [facility]; Protocol Last Admin: 08/28/18 11:34 Dose: Not Given Lactobacillus Acidophilus (Bacid -) 1 tab PO DAILY [facility] Last Admin: 08/28/18 10:25 Dose: 1 tab Levothyroxine Sodium (Synthroid -) 50 mcg PO DAILY@0700 [facility] Last Admin: 08/28/18 06:22 Dose: 50 mcg Metoprolol Succinate (Toprol Xl -) 50 mg PO BID [facility] Last Admin: 08/28/18 10:26 Dose: 50 mg Miscellaneous (Lidoderm Patch Removal) 1 each MC DAILY@2200 [facility] Nystatin (Nystop Powder -) 1 applic TP BID [facility] Last Admin: 08/28/18 10:26 Dose: 1 applic Ondansetron HCl (Zofran Injection) 4 mg IVPUSH Q6H PRN PRN Reason: NAUSEA AND/OR VOMITING Potassium Chloride (K-Dur -) 10 meq PO BID [facility] Last Admin: 08/28/18 10:24 Dose: 10 meq - Objective Vital Signs: Vital Signs Temperature 98.4 F 08/28/18 12:46 Pulse Rate 104 H 08/28/18 12:46 Respiratory Rate 18 08/28/18 12:46 Blood Pressure 114/54 L 08/28/18 12:46 O2 Sat by Pulse Oximetry (%) 96 08/28/18 09:00 Constitutional: Yes: Calm Eyes: Yes: Conjunctiva Clear HENT: Yes: Atraumatic Neck: Yes: Supple Cardiovascular: Yes: S1, S2 Respiratory: Yes: CTA Bilaterally Gastrointestinal: Yes: Soft Genitourinary: Yes: Incontinence Edema: No Neurological: Yes: Oriented Labs: CBC, BMP 08/28/18 10:07 08/28/18 10:07 INR, PTT INR 1.07 (0.83-1.09) 08/19/18 13:35 Problem List - Problems (1) Urinary tract infection Code(s): N39.0 - URINARY TRACT INFECTION, SITE NOT SPECIFIED (2) Acute renal failure Code(s): N17.9 - ACUTE KIDNEY FAILURE, UNSPECIFIED Qualifiers: Acute renal failure type: unspecified Qualified Code(s): N17.9 - Acute kidney failure, unspecified Assessment/Plan Current Medications Generic Name Dose Route Start Last Admin Trade Name Freq PRN Reason Stop Dose Admin Acetaminophen 650 mg 08/26/18 10:14 Tylenol Suppository - [place] Q6H PRN FEVER Acetaminophen 650 mg 08/28/18 03:05 Tylenol - PO Q6H PRN PAIN Apixaban 2.5 mg 08/26/18 22:00 08/28/18 10:26 Eliquis - PO 2.5 mg BID [facility] Administration Atorvastatin Calcium 10 mg 08/26/18 22:00 08/27/18 21:53 Lipitor - PO 10 mg HS [facility] Administration Cyclobenzaprine HCl 5 mg 08/28/18 08:43 08/28/18 10:25 Flexeril - PO 08/30/18 23:59 5 mg TID [facility] Administration Furosemide 40 mg 08/27/18 10:00 08/28/18 10:26 Lasix - PO 40 mg DAILY [facility] Administration Meropenem 500 mg/ Dextrose 100 mls @ 200 mls/hr 08/26/18 18:00 08/28/18 10:24 IVPB 200 mls/hr Q8H-IV [facility] Administration Vancomycin HCl 1,000 mg in 250 mls @ 200 mls/hr 08/26/18 22:45 08/27/18 23:23 Vancomycin (Pre-Docked) IVPB 200 mls/hr Q24H [facility] Administration Protocol Insulin Aspart 40 units 08/26/18 16:30 08/28/18 06:21 Novolog Mix 70/30 Vial SQ 40 units BIDAC [facility] Administration Insulin Aspart 1 vial 08/26/18 11:00 08/28/18 11:34 Novolog Vial Sliding Scale - SQ Not Given ACHS [facility] Protocol Lactobacillus Acidophilus 1 tab 08/27/18 10:00 08/28/18 10:25 Bacid - PO 1 tab DAILY [facility] Administration Levothyroxine Sodium 50 mcg 08/27/18 07:00 08/28/18 06:22 Synthroid - PO 50 mcg DAILY@0700 [facility] Administration Metoprolol Succinate 50 mg 08/26/18 22:00 08/28/18 10:26 Toprol Xl - PO 50 mg BID [facility] Administration Miscellaneous 1 each 08/28/18 22:00 Lidoderm Patch Removal MC DAILY@2200 [facility] Nystatin 1 applic 08/25/18 10:00 08/28/18 10:26 Nystop Powder - TP 1 applic BID [facility] Administration Ondansetron HCl 4 mg 08/26/18 10:14 Zofran Injection IVPUSH Q6H PRN NAUSEA AND/OR VOMITING Potassium Chloride 10 meq 08/26/18 22:00 08/28/18 10:24 K-Dur - PO 10 meq BID [facility] Administration Impression 1. FRANDY 2. UTI 3. a-fib 4. CHF 5. hx of HTN 6. PNA 7. sepsis Plan - renal function stable - cont po lasix - change potassium to daily - will need to monitor lytes - avoid hypotension
--- NOTE | 2018-08-28 14:20 | PN ---
Progress Note, Physician History of Present Illness: AWAKE, RESPONSIVE IN BED REPORTS FALL DENIES CP/ SOB/ COUGH TEMPS REMAIN DOWN AFEBRILE BREATHING NON LABORED ON ROOM AIR REPEAT BC NO GROWTH - Current Medication List Current Medications: Active Medications Acetaminophen (Tylenol Suppository -) 650 mg [place] Q6H PRN PRN Reason: FEVER Acetaminophen (Tylenol -) 650 mg PO Q6H PRN PRN Reason: PAIN Apixaban (Eliquis -) 2.5 mg PO BID [facility] Last Admin: 08/28/18 10:26 Dose: 2.5 mg Atorvastatin Calcium (Lipitor -) 10 mg PO HS [facility] Last Admin: 08/27/18 21:53 Dose: 10 mg Cyclobenzaprine HCl (Flexeril -) 5 mg PO TID [facility] Stop: 08/30/18 23:59 Last Admin: 08/28/18 14:01 Dose: 5 mg Furosemide (Lasix -) 40 mg PO DAILY [facility] Last Admin: 08/28/18 10:26 Dose: 40 mg Meropenem 500 mg/ Dextrose 100 mls @ 200 mls/hr IVPB Q8H-IV [facility] Last Admin: 08/28/18 10:24 Dose: 200 mls/hr Vancomycin HCl (Vancomycin (Pre-Docked)) 1,000 mg in 250 mls @ 200 mls/hr IVPB Q24H [facility]; Protocol Last Admin: 08/27/18 23:23 Dose: 200 mls/hr Insulin Aspart (Novolog Mix 70/30 Vial) 40 units SQ BIDAC [facility] Last Admin: 08/28/18 06:21 Dose: 40 units Insulin Aspart (Novolog Vial Sliding Scale -) 1 vial SQ ACHS [facility]; Protocol Last Admin: 08/28/18 11:34 Dose: Not Given Lactobacillus Acidophilus (Bacid -) 1 tab PO DAILY [facility] Last Admin: 08/28/18 10:25 Dose: 1 tab Levothyroxine Sodium (Synthroid -) 50 mcg PO DAILY@0700 [facility] Last Admin: 08/28/18 06:22 Dose: 50 mcg Metoprolol Succinate (Toprol Xl -) 50 mg PO BID [facility] Last Admin: 08/28/18 10:26 Dose: 50 mg Miscellaneous (Lidoderm Patch Removal) 1 each MC DAILY@2200 [facility] Nystatin (Nystop Powder -) 1 applic TP BID [facility] Last Admin: 08/28/18 10:26 Dose: 1 applic Ondansetron HCl (Zofran Injection) 4 mg IVPUSH Q6H PRN PRN Reason: NAUSEA AND/OR VOMITING Potassium Chloride (K-Dur -) 10 meq PO DAILY [facility] - Objective Vital Signs: Vital Signs Temperature 98.4 F 08/28/18 12:46 Pulse Rate 104 H 08/28/18 12:46 Respiratory Rate 18 08/28/18 12:46 Blood Pressure 114/54 L 08/28/18 12:46 O2 Sat by Pulse Oximetry (%) 96 08/28/18 09:00 Constitutional: Yes: No Distress, Obese Cardiovascular: Yes: Regular Rate and Rhythm, S1, S2 Respiratory: Yes: CTA Bilaterally Gastrointestinal: Yes: Normal Bowel Sounds, Soft. No: Tenderness Labs: CBC, BMP 08/28/18 10:07 08/28/18 10:07 INR, PTT INR 1.07 (0.83-1.09) 08/19/18 13:35 Assessment/Plan UTI R/O SEPSIS CHF V. PNEUMONIA TOXIC METABOLIC ENCEPHALOPATHY RESOLVED AZOTEMIA IMPROVED LACTIC ACIDOSIS- RESOLVED SUBSTITUTE LEVAQUIN PO X 3D
[2018-08-28] MEDS ORDERED: LIDOCAINE PATCH REMOVAL MC SCH (22:00)
[2018-08-28] MEDS: ATORVASTATIN CA 10 MG TABLET (FP) PO SCH (22:47)
[2018-08-29] MEDS: CYCLOBENZAPRINE HCL 10 MG TABLET (FP) PO SCH ×2 (05:59→13:04)
[2018-08-29] MEDS: INSULIN SLIDING SCALE (NOVOLOG) 1 VIAL SQ SCH ×2 (06:00→11:15)
[2018-08-29] MEDS: LEVOTHYROXINE NA 50 MCG TABLET (FP) PO SCH (06:00)
[2018-08-29] MEDS: INSULIN (NOVOLOG MIX 70/30) 100 UNITS/ML MDV SQ SCH (06:02)
--- NOTE | 2018-08-29 07:59 | DS ---
Physical Examination Vital Signs: Vital Signs Temperature 98.3 F 08/29/18 06:00 Pulse Rate 111 H 08/29/18 06:00 Respiratory Rate 20 08/29/18 06:00 Blood Pressure 106/62 08/29/18 06:00 O2 Sat by Pulse Oximetry (%) 93 L 08/28/18 21:00 Constitutional: Yes: Calm Eyes: Yes: EOM Intact HENT: Yes: Normocephalic Neck: Yes: Trachea Midline Cardiovascular: Yes: Regular Rate and Rhythm Respiratory: Yes: CTA Bilaterally Gastrointestinal: Yes: Normal Bowel Sounds, Abdomen, Obese Musculoskeletal: Yes: Back Pain Extremities: Yes: WNL Edema: No Neurological: Yes: WNL, Alert Psychiatric: Yes: WNL Labs: CBC, BMP 08/28/18 10:07 08/28/18 10:07 Discharge Summary Reason For Visit: UTI,RETENTION OF URINE,AMS Current Active Problems Acute hypoxemic respiratory failure (Acute) Acute kidney failure (Acute) Acute on chronic diastolic CHF (congestive heart failure) (Acute) Afib (Acute) CHF (congestive heart failure) (Acute) Sepsis (Acute) Urinary retention (Acute) Urinary tract infection (Acute) Hospital Course: 88 yo lady h/o Afib/PPM/CHF/breast CA/IDDM admitted for weakness and lethargy diagnosed with PNA and UTI sepsis in hospital developed acute Pulmonary edema and Rapid afibwith FRANDY due to sepsis improved with iv abx, iv diuresis and medication adjustment for rate control fell yesterday, since then c/o lower back pain-CT showes no acute injury medically stable to dc to short term rehab on 3 more days of oral levaquin Condition: Stable - Instructions Disposition: NURSING HOME FACILITY - Home Medications Comprehensive Discharge Medication List: Ambulatory Orders Apixaban [Eliquis -] 2.5 mg PO BID 08/19/18 Atorvastatin Ca [Lipitor] 10 mg PO HS 08/19/18 Furosemide [Lasix -] 40 mg PO DAILY 08/19/18 Insulin Lispro Protamin/Lispro [Humalog Mix 75-25 Kwikpen] 100 unit SQ ACHS Lactobacillus Acidophilus [Acidophilus] 1 each PO DAILY 08/19/18 Levothyroxine [Synthroid -] 50 mcg PO DAILY 08/19/18 Potassium Chloride [K-Dur -] 10 meq PO BID 08/19/18 Tamoxifen Citrate 20 mg PO DAILY 08/19/18 Acetaminophen [Tylenol .Regular Strength -] 650 mg PO Q6H PRN tablet 08/29/18 Cyclobenzaprine HCl [Flexeril -] 5 mg PO TID tablet 08/29/18 Insulin Sliding Scale [Novolog Vial Sliding Scale -] 1 vial SQ ACHS units 08/29 Lidocaine Patch Removal [Lidoderm Patch Removal] 1 each MC DAILY@2200 each 11/09 Metoprolol Succinate [Toprol XL -] 50 mg PO BID tab.sr.24h 08/29/18 Nystatin Powder [Nystop Powder -] 1 applic TP BID applic 08/29/18 levoFLOXacin [Levaquin -] 250 mg PO DAILY tablet 08/29/18
--- NOTE | 2018-08-29 09:36 | PN ---
Progress Note (short form) - Note Progress Note: Resting in NAD. No acute events overnight. No CP or SOB. Afebrile. Intake & Output 08/26/18 08/27/18 08/28/18 08/29/18 23:59 23:59 23:59 23:59 Intake Total 1540 1290 590 0 Output Total 760 Balance 780 1290 590 0 Weight 153 lb 12.8 oz 152 lb 3.2 oz 149 lb 14.4 oz Last Vital Signs Temp Pulse Resp BP Pulse Ox 97.3 F L 84 20 119/60 93 L 08/29/18 09:18 08/29/18 09:18 08/29/18 09:18 08/29/18 09:18 08/28/18 21:00 Active Medications Acetaminophen (Tylenol Suppository -) 650 mg [place] Q6H PRN PRN Reason: FEVER Acetaminophen (Tylenol -) 650 mg PO Q6H PRN PRN Reason: PAIN Apixaban (Eliquis -) 2.5 mg PO BID [facility] Last Admin: 08/28/18 22:47 Dose: 2.5 mg Atorvastatin Calcium (Lipitor -) 10 mg PO HS [facility] Last Admin: 08/28/18 22:47 Dose: 10 mg Cyclobenzaprine HCl (Flexeril -) 5 mg PO TID [facility] Stop: 08/30/18 23:59 Last Admin: 08/29/18 05:59 Dose: 5 mg Furosemide (Lasix -) 40 mg PO DAILY [facility] Last Admin: 08/28/18 10:26 Dose: 40 mg Insulin Aspart (Novolog Mix 70/30 Vial) 40 units SQ BIDAC [facility] Last Admin: 08/29/18 06:02 Dose: 40 units Insulin Aspart (Novolog Vial Sliding Scale -) 1 vial SQ ACHS [facility]; Protocol Last Admin: 08/29/18 06:00 Dose: Not Given Lactobacillus Acidophilus (Bacid -) 1 tab PO DAILY [facility] Last Admin: 08/28/18 10:25 Dose: 1 tab Levofloxacin (Levaquin -) 250 mg PO DAILY [facility] Levothyroxine Sodium (Synthroid -) 50 mcg PO DAILY@0700 [facility] Last Admin: 08/29/18 06:00 Dose: 50 mcg Metoprolol Succinate (Toprol Xl -) 50 mg PO BID [facility] Last Admin: 08/28/18 22:47 Dose: 50 mg Miscellaneous (Lidoderm Patch Removal) 1 each MC DAILY@2200 [facility] Last Admin: 08/28/18 22:47 Dose: 1 each Nystatin (Nystop Powder -) 1 applic TP BID [facility] Last Admin: 08/28/18 22:48 Dose: 1 applic Ondansetron HCl (Zofran Injection) 4 mg IVPUSH Q6H PRN PRN Reason: NAUSEA AND/OR VOMITING Potassium Chloride (K-Dur -) 10 meq PO DAILY [facility] Constitutional: Yes: No Distress Neck: Yes: Supple Cardiovascular: Yes: S1, S2 Respiratory: Yes: few scattered rhonchi Gastrointestinal: Yes: Normal Bowel Sounds, Soft Neurological: Yes: Alert, Oriented. Labs: Laboratory Results - last 24 hr 08/28/18 08/28/18 08/28/18 10:07 10:07 11:29 WBC 12.9 H RBC 3.64 Hgb 10.8 Hct 32.3 L MCV 88.8 MCH 29.7 MCHC 33.5 RDW 14.6 Plt Count 326 D MPV 9.2 D Absolute Neuts (auto) 7.7 Neutrophils % 59.7 Lymphocytes % 26.0 Monocytes % 12.4 H D Eosinophils % 1.2 Basophils % 0.7 Nucleated RBC % 0 Sodium 139 Potassium 4.6 Chloride 104 Carbon Dioxide 28 Anion Gap 8 BUN 30.7 H Creatinine 0.9 Est GFR (CKD-EPI)AfAm 67.10 Est GFR (CKD-EPI)NonAf 57.90 POC Glucometer 119 Random Glucose 76 Calcium 7.9 L Total Bilirubin 0.9 AST 51 H ALT 63 H Alkaline Phosphatase 45 Total Protein 5.8 L Albumin 2.3 L 08/28/18 08/28/18 08/29/18 17:22 22:51 05:55 WBC RBC Hgb Hct MCV MCH MCHC RDW Plt Count MPV Absolute Neuts (auto) Neutrophils % Lymphocytes % Monocytes % Eosinophils % Basophils % Nucleated RBC % Sodium Potassium Chloride Carbon Dioxide Anion Gap BUN Creatinine Est GFR (CKD-EPI)AfAm Est GFR (CKD-EPI)NonAf POC Glucometer 134 84 107 Random Glucose Calcium Total Bilirubin AST ALT Alkaline Phosphatase Total Protein Albumin IMP: PNA AFib Breast CA IDDM PPM UTI sepsis Pulmonary edema -better Rapid afib-rate controlled FRANDY better Platelet better fall with back pain PO Levaquin D/C planning Dr Fermin
[2018-08-29] MEDS: APIXABAN 2.5 MG TABLET PO SCH (09:38)
[2018-08-29] MEDS: FUROSEMIDE 40 MG TABLET (FP) PO SCH (09:38)
[2018-08-29] MEDS: LACTOBACILLUS ACIDOPHILUS 1 TABLET PO SCH (09:38)
[2018-08-29] MEDS: NYSTATIN POWDER 100,000 UNITS/GM - 15 GM TOPICAL POWDER TP SCH (09:39)
[2018-08-29] MEDS ORDERED: POTASSIUM CHLORIDE TABS 10 MEQ TABLET.ER (FP) PO SCH (10:00)
--- NOTE | 2018-08-29 12:15 | PN ---
Progress Note (short form) - Note Progress Note: s: no chest pain, palps, dizziness Current Medications Acetaminophen (Tylenol Suppository -) 650 mg [place] Q6H PRN PRN Reason: FEVER Acetaminophen (Tylenol -) 650 mg PO Q6H PRN PRN Reason: PAIN Apixaban (Eliquis -) 2.5 mg PO BID [facility] Last Admin: 08/29/18 09:38 Dose: 2.5 mg Atorvastatin Calcium (Lipitor -) 10 mg PO HS [facility] Last Admin: 08/28/18 22:47 Dose: 10 mg Cyclobenzaprine HCl (Flexeril -) 5 mg PO TID [facility] Stop: 08/30/18 23:59 Last Admin: 08/29/18 05:59 Dose: 5 mg Furosemide (Lasix -) 40 mg PO DAILY [facility] Last Admin: 08/29/18 09:38 Dose: 40 mg Insulin Aspart (Novolog Mix 70/30 Vial) 40 units SQ BIDAC [facility] Last Admin: 08/29/18 06:02 Dose: 40 units Insulin Aspart (Novolog Vial Sliding Scale -) 1 vial SQ [facility]; Protocol Last Admin: 08/29/18 11:15 Dose: Not Given Lactobacillus Acidophilus (Bacid -) 1 tab PO DAILY [facility] Last Admin: 08/29/18 09:38 Dose: 1 tab Levofloxacin (Levaquin -) 250 mg PO DAILY [facility] Last Admin: 08/29/18 09:38 Dose: 250 mg Levothyroxine Sodium (Synthroid -) 50 mcg PO DAILY@0700 [facility] Last Admin: 08/29/18 06:00 Dose: 50 mcg Metoprolol Succinate (Toprol Xl -) 50 mg PO BID [facility] Last Admin: 08/29/18 09:38 Dose: 50 mg Miscellaneous (Lidoderm Patch Removal) 1 each MC DAILY@2200 [facility] Last Admin: 08/28/18 22:47 Dose: 1 each Nystatin (Nystop Powder -) 1 applic TP BID [facility] Last Admin: 08/29/18 09:39 Dose: 1 applic Ondansetron HCl (Zofran Injection) 4 mg IVPUSH Q6H PRN PRN Reason: NAUSEA AND/OR VOMITING Potassium Chloride (K-Dur -) 10 meq PO DAILY [facility] Last Admin: 08/29/18 09:38 Dose: 10 meq Vital Signs Period Temp Pulse Resp BP Sys/Geurra Pulse Ox Last 24 Hr 97.3 F-98.4 F 84-111 18-20 106-129/54-62 93-95 Constitutional: Yes: No Distress, Calm Cardiovascular: Yes: Pulse Irregular Respiratory: Yes: CTA Bilaterally Gastrointestinal: Yes: Soft Edema: No Neurological: Yes: Alert, Oriented no jaundice, diaphoresis not agitated Assessment/Plan IMP: 1. UTI 2. Possible PNA 3. PAF s/p PPM, on NOAC 4. Suspected component of acute on chronic diastolic CHF 5. Thrombocytopenia REC: - manage UTI, PNA per primary - rates improved on increased metprolol dose, continue. Dig loaded with good effect (1mg). Does not seem to required standing dig- suspect RALF was driven by initial sepsis/fever. - thrombocytopenia improving - cont eliquis, monitoring CBC - echo showed mildly to mod reduced LV function - was diuresed with IV lasix, now transitioned to PO - appears euvolemic, cont lasix PO - history of falls, dc to SNF [place]. If recurrent falls or if deemed high risk for recurrent falls, can reconsider use of full AC moving forward. Stable for dc from cardiac perspective
[2018-08-29 13:22] VITALS: BP 118/70; PULSE 82; TEMP 98
== END 2018-08-29 13:49 | DRG 871 ==
LOC: JER 13:05 → JERBED 15:19 → J5S 19:45 → J4W 08-21 11:17 → J8W 08-26 16:47
PROVIDERS: ADMIT Internal Medicine; ATTEND Internal Medicine
DX: A41.9 Sepsis, unspecified organism (principal); G93.41 Metabolic encephalopathy; I50.33 Acute on chronic diastolic (congestive) heart failure; J18.9 Pneumonia, unspecified organism; J96.01 Acute respiratory failure with hypoxia; N39.0 Urinary tract infection, site not specified; E87.2 Acidosis; N17.9 Acute kidney failure, unspecified; E87.3 Alkalosis; I11.0 Hypertensive heart disease with heart failure; I48.0 Paroxysmal atrial fibrillation; D69.6 Thrombocytopenia, unspecified; Z79.4 Long term (current) use of insulin; R41.82 Altered mental status, unspecified; E83.51 Hypocalcemia; I27.20 Pulmonary hypertension, unspecified; E11.9 Type 2 diabetes mellitus without complications; E87.6 Hypokalemia; E03.9 Hypothyroidism, unspecified; B96.89 Other specified bacterial agents as the cause of diseases classified elsewhere
CPT/HCPCS: 36415; 36600; 70450-TC; 71045-TC-FY; 71250-TC; 72125-TC; 72128-TC; 72131-TC; 76775-TC; 76856-TC; 80048; 80053; 81003; 82436; 82565; 82803; 82962; 83605; 83735; 83880; 84133; 84300; 84443; 84484; 84540; 85025; 85610; 85730; 87040; 87086; 87186; 87205; 87899; 93005; 93010; 93306-TC; 97116-GP; 97162-GP; 99284-25; G0480; J0131; J7030

== ENCOUNTER 2018-09-21 07:00 | Inpatient (IN) | payer BC | END 2018-10-01 20:21 | disposition home or self-care (01) | LOC: JER 07:00 → JERBED 09:34 → J4W 11:58 ==

== ENCOUNTER 2020-06-10 20:43 | Inpatient (IN) | payer BC, OTHER ==
[2020-06-10 20:47] VITALS: BMI 28.3
[2020-06-10] MEDS ORDERED: ACETAMINOPHEN 1000 MG/100 ML VIAL (NON FORMULARY) IVPB ONE (21:25)
[2020-06-10] MEDS ORDERED: DIPHTH,PERTUSS(ACELL),TET 0.5 ML DISP.SYRIN IM ONE ×2 (23:18→23:34)
[2020-06-10] MEDS ORDERED: ACETAMINOPHEN INJECTION 100 ML IVPB ONE (23:33)
[2020-06-10 23:56] LABS: BASO % 0.2 % (0-2.0); EOS % 0.1 % (0-4.5); HEMATOCRIT 36.8 % (32.4-45.2); HEMOGLOBIN 12.3 GM/dL (10.7-15.3); LYMPH % 9.3 % (8-40); MCH 29.3 pg (25.7-33.7); MCHC 33.3 g/dl (32.0-36.0); MEAN CELL VOLUME 87.9 fl (80-96); MEAN PLT VOLUME 8.7 fl (7.5-11.1); MONO % 5.8 % (3.8-10.2); NEUT % 84.6 % (42.8-82.8); PLATELET COUNT 257 K/MM3 (134-434); RBC 4.19 M/mm3 (3.60-5.2); RDW 15.4 % (11.6-15.6); WHITE BLOOD COUNT 13.3 K/mm3 (4.0-10.0)
[2020-06-11 00:04] LABS: INR 1.14 (0.83-1.09)
[2020-06-11 00:06] LABS: ACTIVATED PTT 26.6 SECONDS (25.2-36.5)
[2020-06-11 00:25] LABS: BLOOD UREA NITROGEN 22.6 mg/dL (7-18); CALCIUM 9.1 mg/dL (8.5-10.1)
[2020-06-11 00:26] LABS: ALBUMIN 3.4 g/dl (3.4-5.0)
[2020-06-11 00:29] LABS: CREATININE 1.1 mg/dL (0.55-1.3)
[2020-06-11 00:30] LABS: BILIRUBIN,TOTAL 0.8 mg/dL (0.2-1); TOT PROT 7.4 g/dl (6.4-8.2)
[2020-06-11] MEDS ORDERED: INSULIN REGULAR HUMAN 100 UNITS/ML *VIAL IVPUSH ONE (01:58)
[2020-06-11] MEDS ORDERED: Insulin (LOG) Aspart 100 UNITS/ML VIAL SQ ONE (01:59)
[2020-06-11] MEDS ORDERED: oxyCODONE HCL 5 MG TABLET PO ONE (03:19)
[2020-06-11] MEDS ORDERED: oxyCODONE HCL 5 MG TABLET ONE (03:45)
[2020-06-11] MEDS: LEVOTHYROXINE NA 50 MCG TABLET (FP) PO SCH (06:31)
[2020-06-11] MEDS: INSULIN SLIDING SCALE (NOVOLOG) 1 VIAL SQ SCH ×4 (06:34→21:25)
[2020-06-11] MEDS: ACETAMINOPHEN 1000 MG/100 ML VIAL (NON FORMULARY) IVPB PRN ×3 (08:14→23:14)
[2020-06-11] MEDS: DIGOXIN 0.125 MG TABLET (FP) PO SCH (09:20)
[2020-06-11] MEDS: POTASSIUM CHLORIDE TABS 20 MEQ TABLET.ER (FP) PO SCH (09:20)
[2020-06-11] MEDS: APIXABAN 2.5 MG TABLET PO SCH ×2 (09:21→21:23)
[2020-06-11] MEDS ORDERED: PATIENT'S OWN MEDICATION (NON-FORMULARY) (Tamoxifen Citrate [Tamoxifen Citrate] 20 MG Tabl PO SCH (10:00)
[2020-06-11] MEDS ORDERED: PT OWN MED DRAWER 7, Y5N ONE ×2 (11:09→20:45)
[2020-06-11] MEDS ORDERED: INSULIN (NOVOLOG) ASPART 100 UNITS/ML 10ML VIAL ONE ×3 (11:15→21:23)
[2020-06-11] MEDS: TAMOXIFEN CITRATE 10 MG TABLET PO SCH (11:20)
[2020-06-11] MEDS: CYANOCOBALAMIN 1,000 MCG TABLET (FP) PO SCH (12:59)
[2020-06-11] MEDS: ATORVASTATIN CA 10 MG TABLET (FP) PO SCH (21:24)
[2020-06-11] MEDS ORDERED: INSULIN (LEVEMIR) 100 UNITS/ML UNITS SQ SCH (22:00)
[2020-06-11] MEDS: rOPINIRole HCL 0.5 MG TABLET PO SCH (23:00)
[2020-06-12] MEDS: LEVOTHYROXINE NA 50 MCG TABLET (FP) PO SCH (06:34)
[2020-06-12] MEDS: INSULIN SLIDING SCALE (NOVOLOG) 1 VIAL SQ SCH ×4 (06:39→21:15)
[2020-06-12] MEDS: oxyCODONE HCL 5 MG TABLET PO PRN ×2 (07:01→21:17)
[2020-06-12 08:42] LABS: BASO % 0.5 % (0-2.0); EOS % 1.2 % (0-4.5); HEMATOCRIT 33.6 % (32.4-45.2); HEMOGLOBIN 11.8 GM/dL (10.7-15.3); LYMPH % 19.3 % (8-40); MCH 30.4 pg (25.7-33.7); MCHC 35.1 g/dl (32.0-36.0); MEAN CELL VOLUME 86.4 fl (80-96); MEAN PLT VOLUME 8.4 fl (7.5-11.1); MONO % 6.7 % (3.8-10.2); NEUT % 72.3 % (42.8-82.8); PLATELET COUNT 233 K/MM3 (134-434); RBC 3.88 M/mm3 (3.60-5.2); RDW 15.2 % (11.6-15.6); WHITE BLOOD COUNT 10.1 K/mm3 (4.0-10.0)
[2020-06-12 09:04] LABS: BLOOD UREA NITROGEN 22.2 mg/dL (7-18); CALCIUM 8.7 mg/dL (8.5-10.1); MAGNESIUM 2.4 mg/dL (1.8-2.4)
[2020-06-12 09:08] LABS: CREATININE 0.9 mg/dL (0.55-1.3); PHOSPHOROUS 3.2 mg/dL (2.5-4.9)
[2020-06-12 09:09] LABS: TOT PROT 6.8 g/dl (6.4-8.2)
[2020-06-12] MEDS: CYANOCOBALAMIN 1,000 MCG TABLET (FP) PO SCH (10:03)
[2020-06-12] MEDS: POTASSIUM CHLORIDE TABS 20 MEQ TABLET.ER (FP) PO SCH (10:03)
[2020-06-12] MEDS: APIXABAN 2.5 MG TABLET PO SCH ×2 (10:03→21:17)
[2020-06-12] MEDS: TAMOXIFEN CITRATE 10 MG TABLET PO SCH (10:03)
[2020-06-12] MEDS: rOPINIRole HCL 0.5 MG TABLET PO SCH (21:15)
[2020-06-12] MEDS: ATORVASTATIN CA 10 MG TABLET (FP) PO SCH (21:16)
[2020-06-12] MEDS ORDERED: INSULIN (LEVEMIR) 100 UNITS/ML UNITS SQ SCH (22:00)
[2020-06-13] MEDS: INSULIN SLIDING SCALE (NOVOLOG) 1 VIAL SQ SCH ×4 (06:09→21:04)
[2020-06-13] MEDS: LEVOTHYROXINE NA 50 MCG TABLET (FP) PO SCH (06:09)
[2020-06-13] MEDS ORDERED: PT OWN MED DRAWER 7, Y5N ONE (10:05)
[2020-06-13] MEDS: TAMOXIFEN CITRATE 10 MG TABLET PO SCH (10:23)
[2020-06-13] MEDS: CYANOCOBALAMIN 1,000 MCG TABLET (FP) PO SCH (10:23)
[2020-06-13] MEDS: DIGOXIN 0.125 MG TABLET (FP) PO SCH (10:23)
[2020-06-13] MEDS: POTASSIUM CHLORIDE TABS 20 MEQ TABLET.ER (FP) PO SCH (10:23)
[2020-06-13] MEDS: APIXABAN 2.5 MG TABLET PO SCH ×2 (10:23→21:04)
[2020-06-13] MEDS ORDERED: INSULIN (NOVOLOG) ASPART 100 UNITS/ML 10ML VIAL ONE (11:13)
[2020-06-13] MEDS: oxyCODONE HCL 5 MG TABLET PO PRN (21:03)
[2020-06-13] MEDS: ATORVASTATIN CA 10 MG TABLET (FP) PO SCH (21:04)
[2020-06-13] MEDS: rOPINIRole HCL 0.5 MG TABLET PO SCH (21:04)
[2020-06-13] MEDS: INSULIN (LEVEMIR) 100 UNITS/ML UNITS SQ SCH (21:05)
[2020-06-14] MEDS: INSULIN SLIDING SCALE (NOVOLOG) 1 VIAL SQ SCH ×4 (06:28→22:02)
[2020-06-14] MEDS: LEVOTHYROXINE NA 50 MCG TABLET (FP) PO SCH (06:28)
[2020-06-14] MEDS ORDERED: PT OWN MED DRAWER 7, Y5N ONE ×2 (10:00→21:03)
[2020-06-14] MEDS: POTASSIUM CHLORIDE TABS 20 MEQ TABLET.ER (FP) PO SCH (10:02)
[2020-06-14] MEDS: CYANOCOBALAMIN 1,000 MCG TABLET (FP) PO SCH (10:03)
[2020-06-14] MEDS: TAMOXIFEN CITRATE 10 MG TABLET PO SCH (10:03)
[2020-06-14] MEDS: APIXABAN 2.5 MG TABLET PO SCH ×2 (10:03→21:57)
[2020-06-14] MEDS: rOPINIRole HCL 0.5 MG TABLET PO SCH (21:58)
[2020-06-14] MEDS: ATORVASTATIN CA 10 MG TABLET (FP) PO SCH (22:00)
[2020-06-14] MEDS: INSULIN (LEVEMIR) 100 UNITS/ML UNITS SQ SCH (22:01)
[2020-06-15] MEDS: oxyCODONE HCL 5 MG TABLET PO PRN ×2 (03:30→22:36)
[2020-06-15] MEDS: INSULIN SLIDING SCALE (NOVOLOG) 1 VIAL SQ SCH ×4 (06:19→22:08)
[2020-06-15] MEDS: LEVOTHYROXINE NA 50 MCG TABLET (FP) PO SCH (06:19)
[2020-06-15] MEDS ORDERED: PT OWN MED DRAWER 7, Y5N ONE ×2 (09:56→22:03)
[2020-06-15] MEDS: POTASSIUM CHLORIDE TABS 20 MEQ TABLET.ER (FP) PO SCH (09:57)
[2020-06-15] MEDS: DIGOXIN 0.125 MG TABLET (FP) PO SCH (09:57)
[2020-06-15] MEDS: APIXABAN 2.5 MG TABLET PO SCH ×2 (09:57→22:07)
[2020-06-15] MEDS: CYANOCOBALAMIN 1,000 MCG TABLET (FP) PO SCH (09:59)
[2020-06-15] MEDS: TAMOXIFEN CITRATE 10 MG TABLET PO SCH (10:01)
[2020-06-15] MEDS: ATORVASTATIN CA 10 MG TABLET (FP) PO SCH (22:08)
[2020-06-15] MEDS: rOPINIRole HCL 0.5 MG TABLET PO SCH (22:08)
[2020-06-15] MEDS: INSULIN (LEVEMIR) 100 UNITS/ML UNITS SQ SCH (22:08)
[2020-06-16] MEDS: oxyCODONE HCL 5 MG TABLET PO PRN (05:53)
[2020-06-16] MEDS: INSULIN SLIDING SCALE (NOVOLOG) 1 VIAL SQ SCH ×2 (06:09→11:29)
[2020-06-16] MEDS: LEVOTHYROXINE NA 50 MCG TABLET (FP) PO SCH (06:09)
[2020-06-16 09:21] LABS: BASO % 0.6 % (0-2.0); EOS % 1.9 % (0-4.5); HEMOGLOBIN 12.3 GM/dL (10.7-15.3); LYMPH % 21.6 % (8-40); MCHC 34.2 g/dl (32.0-36.0); MEAN CELL VOLUME 87.7 fl (80-96); MEAN PLT VOLUME 8.1 fl (7.5-11.1); MONO % 9.3 % (3.8-10.2); NEUT % 66.6 % (42.8-82.8); PLATELET COUNT 269 K/MM3 (134-434); RBC 4.11 M/mm3 (3.60-5.2); RDW 15.6 % (11.6-15.6)
[2020-06-16] MEDS ORDERED: PT OWN MED DRAWER 7, Y5N ONE ×2 (09:52→16:44)
[2020-06-16] MEDS ORDERED: MULTIVITAMINS (DAILY MVI) TABLET (FP) PO SCH (10:00)
[2020-06-16] MEDS: APIXABAN 2.5 MG TABLET PO SCH (10:11)
[2020-06-16] MEDS: TAMOXIFEN CITRATE 10 MG TABLET PO SCH (10:11)
[2020-06-16] MEDS: POTASSIUM CHLORIDE TABS 20 MEQ TABLET.ER (FP) PO SCH (10:11)
[2020-06-16] MEDS: CYANOCOBALAMIN 1,000 MCG TABLET (FP) PO SCH (10:11)
[2020-06-16] MEDS ORDERED: INSULIN (NOVOLOG) ASPART 100 UNITS/ML 10ML VIAL ONE (11:20)
[2020-06-16 14:41] VITALS: BP 132/56; PULSE 77; TEMP 98.4
== END 2020-06-16 17:26 | DRG 563 ==
LOC: JER 20:43 → JERBED 23:20 → J6S 06-11 05:30
PROVIDERS: ADMIT Hospitalist; ATTEND Internal Medicine
PROC: 0HQEXZZ Repair Left Lower Arm Skin, External Approach (ICD-10-PCS; principal; 2020-06-10)
DX: S42.292A Other displaced fracture of upper end of left humerus, initial encounter for closed fracture (principal); I50.22 Chronic systolic (congestive) heart failure; I11.0 Hypertensive heart disease with heart failure; I48.91 Unspecified atrial fibrillation; E03.9 Hypothyroidism, unspecified; E11.9 Type 2 diabetes mellitus without complications; I25.10 Atherosclerotic heart disease of native coronary artery without angina pectoris; E78.5 Hyperlipidemia, unspecified; S51.012A Laceration without foreign body of left elbow, initial encounter; S09.90XA Unspecified injury of head, initial encounter; W01.0XXA Fall on same level from slipping, tripping and stumbling without subsequent striking against object, initial encounter; Y92.098 Other place in other non-institutional residence as the place of occurrence of the external cause; Z85.3 Personal history of malignant neoplasm of breast; Z86.73 Personal history of transient ischemic attack (TIA), and cerebral infarction without residual deficits
CPT/HCPCS: 36415; 70450-TC; 71045-TC-FY; 72125-TC; 72170-TC-FY; 73030-TC-LT-FY; 73060-TC-LT-FY; 73070-TC-LT-FY; 73090-TC-LT-FY; 73130-TC-LT-FY; 73562-TC-LT-FY; 80053; 82962; 83735; 84100; 85025; 85610; 85730; 86850; 86900; 86901; 87804; 90715; 93005; 93010; 97116-GP; 97162-GP; 99285-25; C9803; J0131; U0003; U0005

== ENCOUNTER 2021-09-10 09:26 | Emergency (ER) | payer BC ==
[2021-09-10 09:34] VITALS: TEMP 98.7; BMI 27.8
[2021-09-10] MEDS ORDERED: BEBTELOVIMAB (EUA) 175 MG/2 ML VIAL IVPUSH ONE (09:57)
[2021-09-10 12:30] VITALS: BP 118/64; PULSE 78
== END 2021-09-10 13:01 | disposition home or self-care (01) ==
LOC: JCOVINFU 09:26 → JER 09:26
DX: U07.1 COVID-19 (principal); M79.10 Myalgia, unspecified site; R05.1 Acute cough
CPT/HCPCS: 99283-25; M0222; Q0222